=== PATIENT | male | born 1975 | race Caucasian/White ===

== ENCOUNTER 2016-06-17 11:54 | Inpatient (IN) | payer OTHER ==
--- NOTE | 2016-06-17 12:23 | ED ---
Psychiatric Complaint - HPI Summary HPI Summary: Patient presents with his father after his therapist recommended he come to the ED for evaluation due to increasing SI without a plan. The patient sees his counselor weekly and has been taking his daily medications. He goes to the methadone clinic daily in [place] and has not used heroin in four days. He feels agitated and worries he might start "acting up", of which he has a history in this facility. No physical complaints at this time. He mentions "a global conspiracy", but will not elaborate. 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 Denies: With A Plan - Allergies/Home Medications Allergies/Adverse Reactions: Allergies Allergy/AdvReac Type Severity Reaction Status Date / Time Penicillins Allergy Hives Verified 06/17/16 12:05 PMH/Surg Hx/FS Hx/Imm Hx Endocrine/Hematology History: Reports: Hx Thyroid Disease - hypo, Hx Anemia Denies: Hx Anticoagulant Therapy, Hx Diabetes Cardiovascular History: Reports: Hx Hypercholesterolemia, Hx Hypertension Denies: Hx Congestive Heart Failure, Hx Pacemaker/ICD Respiratory History: Reports: Hx Asthma, Hx Chronic Obstructive Pulmonary Disease (COPD), Hx Pneumonia History: Denies: Hx Renal Disease Musculoskeletal History: Reports: Hx Orthopedic Injury - Left Hand Fracture Sensory History: Reports: Hx Contacts or Glasses - reading Denies: Hx Hearing Aid Opthamlomology History: Reports: Hx Contacts or Glasses - reading Neurological History: Reports: Hx Migraine, Other Neuro Impairments/Disorders - Benign Tumor Removed Earlier this Year Psychiatric History: Reports: Hx Anxiety, Hx Attention Deficit Hyperactivity Disorder, Hx Depression, Hx Panic Disorder, Hx Post Traumatic Stress Disorder, Hx Inpatient Treatment, Hx Community Mental Health Tx, Hx Bipolar Disorder, Hx of Violent Episodes Against Others, Hx Substance Abuse, Other Psychiatric Issues /Disorders - BIPOLAR Denies: Hx Eating Disorder, Hx Suicide Attempt - Surgical History Surgery Procedure, Year, and Place: Pt states 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 Hx Anesthesia Reactions: Yes - age 8 ear tubes, surgery stopped for heart palpitation, unknown etiology, s Infectious Disease History: No Infectious Disease History: Reports: Hx of Known/Suspected MRSA Denies: Hx Clostridium Difficile, Hx Hepatitis, Hx Human Immunodeficiency Virus (HIV), Hx Shingles, Hx Tuberculosis, Hx Known/Suspected VRE, Hx Known/ Suspected VRSA, History Other Infectious Disease, Traveled Outside the [place] in Last 30 Days - Family History Known Family History: Positive: Unknown - Social History Occupation: Unemployed Lives: Alone Alcohol Use: None Hx Substance Use: Yes Substance Use Type: Reports: Heroin, Other Substance Use Comment - Amount & Last Used: admits to injecting meth hasnt slept for days Hx Tobacco Use: Yes Smoking Status (MU): Former Smoker Type: Cigarettes Amount Used/How Often: 1 ppd Length of Time of Smoking/Using Tobacco: 9 years Have You Smoked in the Last Year: No Review of Systems Positive: Depressed All Other Systems Reviewed And Are Negative: Yes Physical Exam Triage Information Reviewed: Yes Vital Signs On Initial Exam: Initial Vitals Temp Pulse Resp BP Pulse Ox 97.3 F 87 15 142/100 99 06/17/16 12:01 06/17/16 12:01 06/17/16 12:01 06/17/16 12:01 06/17/16 12:01 Vital Signs Reviewed: Yes Appearance: Positive: Well-Appearing, No Pain Distress, Obese Skin: Positive: Warm, Skin Color Reflects Adequate Perfusion, Dry, Soft Head/Face: Positive: Normal Head/Face Inspection Eyes: Positive: EOMI, ZABRINA, Conjunctiva Clear ENT: Positive: Hearing grossly normal Respiratory/Lung Sounds: Positive: Clear to Auscultation, Breath Sounds Present Cardiovascular: Positive: RRR Abdomen Description: Positive: Nontender, Soft Bowel Sounds: Positive: Present Musculoskeletal: Negative: Edema Left, Edema Right Neurological: Positive: Sensory/Motor Intact, Alert, Oriented to Person Place, Time - Patient is oriented but scratches his head and fidgets through exam, Normal Gait Psychiatric: Positive: Anxious, Depressed AVPU Assessment: Alert Diagnostics - Vital Signs Vital Signs Temp Pulse Resp BP Pulse Ox 06/17/16 12:01 97.3 F 87 15 142/100 99 - Laboratory Result Diagrams: 06/17/16 12:45 06/17/16 12:45 Lab Statement: Any lab studies that have been ordered have been reviewed, and results considered in the medical decision making process. Re-Evaluation - Re-Evaluation First Eval Re-Evaluation Time: 14:40 Change: Worse Comment: Mental health nurse requests medication for patient due to agitation. Course/Dx - Differential Dx/Clinical Impression Differential Diagnosis/HQI/PQRI: Positive: Acute Psychosis, Anxiety, Bipolar Disorder, Depression, Schizophrenia, Suicidal Ideation Provider Diagnosis: Persistent mood [affective] disorder, unspecified - Physician Notifications Patient Is Medically Stable For: Psych Evaluation Discharge - Discharge Plan Condition: Stable Disposition: ADMITTED TO [facility]
[2016-06-17 12:54] LABS: Hematocrit 45 % (42-52); Hemoglobin 14.7 g/dl (14.0-18.0); Mean Corpuscular HGB Conc 33 g/dl (31-36); Mean Corpuscular Hemoglobin 29 pg (27-31); Mean Corpuscular Volume 88 fL (80-94); Mean Platelet Volume 8 um3 (7.4-10.4); Red Blood Count 5.07 10^6/ul (4.0-5.4); Red Cell Distribution Width 14 % (10.5-15); White Blood Count 6.1 10^3/ul (3.5-10.8)
[2016-06-17 13:13] LABS: ALT 33 U/L (7-52); AST 23 U/L (13-39); Albumin 4.3 g/dL (3.2-5.2); Alkaline Phosphatase 87 U/L (34-104); Anion Gap 5 mmol/L (2-11); BUN/Creatinine Ratio 6.6 (8-20); Blood Urea Nitrogen 6 mg/dL (6-24); CO2 Carbon Dioxide 24 mmol/L (22-32); Calcium 9.2 mg/dL (8.6-10.3); Chloride 104 mmol/L (101-111); EGFR African American 119.9 (>60); EGFR Non-African American 93.2 (>60); Globulin 2.9 g/dL (2-4); Glucose 101 mg/dL (70-100); Potassium 4.1 mmol/L (3.5-5.0); Sodium 133 mmol/L (133-145); Total Protein 7.2 g/dL (6.4-8.9)
[2016-06-17 13:15] LABS: Urine Bacteria Absent (Absent); Urine Bilirubin Negative (Negative); Urine Glucose Negative (Negative); Urine Nitrite Negative (Negative); Urine Sperm Present (Absent)
[2016-06-17 13:27] LABS: Benzodiazepine Urine Screen None Detected (None Detect)
[2016-06-17 13:28] LABS: Acetaminophen < 15 mcg/mL; Alcohol < 10 mg/dL (<10); Salicylate < 2.50 mg/dL (<30)
[2016-06-17 13:38] LABS: TSH (Thyroid Stimulating Horm) 2.06 mcIU/mL (0.34-5.60)
[2016-06-17] MEDS ORDERED: Haloperidol TAB* 5 MG PO ONE (14:36)
[2016-06-17] MEDS ORDERED: diPHENhydraMINE PO* 25 MG PO ONE (14:36)
[2016-06-17] MEDS ORDERED: diPHENhydraMINE PO* 50 MG PO ONE (15:00)
[2016-06-17] MEDS ORDERED: Haloperidol TAB* 5 MG ONE (15:08)
[2016-06-17] MEDS ORDERED: diPHENhydraMINE PO* 50 MG ONE (15:08)
[2016-06-17] MEDS ORDERED: Mouth Piece, Nicotine* 1 EACH CARTRIDGE INH SCH (18:46)
[2016-06-17] MEDS ORDERED: Nicotine GUM* 2 MG PO PRN (18:46)
[2016-06-17] MEDS ORDERED: Acetaminophen TAB* 325 MG PO PRN (18:46)
[2016-06-17] MEDS ORDERED: Al Hydrox/Mg Hydrox/Simet LIQ* 30 ML UDC PO PRN (18:46)
[2016-06-18] MEDS: Amphetamine MIXED SALT TAB* 10 MG TAB PO SCH ×2 (09:33→13:35)
[2016-06-18] MEDS: Vitamin THERAPEUTIC TAB PO SCH (09:33)
[2016-06-18] MEDS: Nicotine PATCH 7 MG/24 HR* PATCH TRANSDERM SCH (09:33)
[2016-06-18] MEDS: Atorvastatin* 20 MG TAB PO SCH (09:33)
[2016-06-18] MEDS: Lisinopril TAB* 10 MG PO SCH (09:34)
[2016-06-18] MEDS: Venlafaxine EXT RELEASE CAP* 75 MG PO SCH (09:34)
--- NOTE | 2016-06-18 12:36 | HP ---
DATE OF ADMISSION: 06/17/2016. IDENTIFICATION: Mr. Woodson is a 40-year-old, single, white male who came in to the emergency department on the recommendation of his therapist Alexis at [facility], who has reported that the patient had stated that he wanted to "blow his brains out." The patient has been admitted to this unit four times previously; the last in July of last year. He is also in care with [facility]. He is unemployed and lives alone. HISTORY OF PRESENT ILLNESS: Information was obtained by interview of the patient and review of the electronic medical record. Eron reports that he is here because he is "just depressed." He states that the report of suicidality from his counselor at [facility] is an error. He reports continued use of heroin despite being on Methadone. His toxicology screen was also positive for amphetamine, cocaine and cannabinoids. He is prescribed Adderall by his primary care physician, Dr. Montano, per his report to me. He states that he does not know how cocaine could have gotten into his system. He does report that "I may have [smoked marijuana], I can't remember when." He is quite vague in his report and is, as he has been in the past, an unreliable historian. On review of mood symptoms, he states that his mood is "pretty bad." He does endorse anhedonia for the past few weeks. He reports that he is unsure if he is at this time feeling suicidal. He states that he has no plan to kill himself. He reports that his sleep has been interrupted for some time now, weeks or months, getting only about four hours per night and he is fatigued. He reports poor appetite and weight loss of unknown amount. He denies any feelings of guilt or worthlessness. He reports that his energy has been low and he has been having difficulties with concentration and decision making. On review of history of elton, he reports that "my elton is usually just getting back to normal." On specific review of manic symptoms, he does not endorse sufficient symptoms of elton for a history of manic episode. With regard to PTSD, the patient states that he did have the traumatic experience of a craniotomy, but denies any PTSD symptoms deriving from that. He does not report any other history of trauma. With regard to anxiety, he does report that he will have about monthly panic attacks, characterized by heart racing, sweating, feeling like he may have a heart attack or go crazy. He reports that currently he is feeling anxious and, in fact, tells me that "I feel under assault right now," making reference to my interview questions, which he says he finds intrusive. On review of history of psychotic symptoms, he reports having had recently auditory hallucinations, but with poor recall of when. He believes that last was several days ago. He denies any visual hallucinations. He denies any paranoid ideation, but does state that "people are out to get me." He does report a historical diagnosis of ADHD and says that this was diagnosed in childhood. PAST PSYCHIATRIC HISTORY: The patient has carried historical diagnoses of schizoaffective disorder, substance-induced mood disorder, and polysubstance use disorder. He denies any history of suicide attempts. He has had something on the order of six or eight psychiatric hospitalizations, including one in [place]. He has had four on this unit, this is his fifth. He has been on multiple medication trials, including Invega, Librium, Klonopin, Lamictal, Risperdal, Seroquel, Zyprexa, Zoloft, Depakote, [place] and Abilify. He did misuse Xanax when it was prescribed to him. PAST MEDICAL HISTORY: Had tumor with craniotomy in 2014, obesity, hypertension , hypothyroidism. No history of seizures. History of asthma. ALLERGIES: PENICILLIN. SUBSTANCE ABUSE HISTORY: The patient has an early and extensive history of abuse of substances. He reports that he started using marijuana at the age of 15, opiate pain pills at the age of 18 graduating to heroin with his last use IV this past . He reports first use of cocaine at 21. He denies use of methamphetamine at any point, although this is noted elsewhere in previous reports that he has abused methamphetamine. He reports that he used LSD dozens of times, starting at the age of 16 or 18 with no use since about ten years ago. He denies any changes in thought, feeling, or other mental phenomena since the use of the LSD. He has abused alcohol in the past as well. He reports that he quit smoking tobacco two months ago. He reports moderate use of caffeine, about a 40 ounce sugar free caffeinated soda daily. HISTORY OF VIOLENCE: The patient denies any history of violence or access to firearms. SOCIAL HISTORY: The patient was born in [place], he moved to [place] when he was [age]. He has an associates degree. 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 LEGAL HISTORY: Does report seven past DWI's/DUI's. Otherwise gives somewhat vague report of any other legal history. REVIEW OF SYSTEMS: Denies any chest pain, shortness of breath, nausea, vomiting , constipation, diarrhea, pain, rash, blurred vision, dizziness, ringing in the ears, sore throat. PHYSICAL EXAMINATION He declines a repeat physical examination. Physical examination performed in the emergency department was documented as within normal limits. Given negative ROS and all normal findings on recent exam, I will honor his reasonable request to not be reexamined. VITAL SIGNS: Recorded at 7:43 on 06/18/2016: Temperature 97.4, pulse 88, respiratory rate 16, saturating 95 percent on room air with a blood pressure of 141/77. LABORATORY VALUES: CBC with differential essentially within normal limits with low lymphocyte percentage to 18.8, a high monocyte percentage to 10.4. Comprehensive metabolic panel had a mildly elevated glucose to 101, a slight low BUN and creatinine ratio to 6.6 from BUN of 6 and creatinine of 0.91, both normal. Otherwise, CMP all within normal limits with a TSH of 2.06. Urinalysis had trace leukocyte esterase, trace whites, urine sperm present, and ascorbic acid high. Toxicology screen was positive for opiates, amphetamines, cocaine, and cannabinoids. Serum and urine drug screen otherwise negative. MENTAL STATUS EXAMINATION: Eron is an unreliable historian. He appears to be mildly confused and a bit put out at my questions. He makes fair eye contact. His speech has regular rate, rhythm, and volume, but he doesnt speak much. He has an impoverished or guarded thought process. His thoughts are generally linear and goal- directed nevertheless, with no notable tangentiality. He reports his mood as pretty bad. His affect is sullen and withdrawn. He denies AH/VH/PI/SI/HI currently, though he reports PI without insight, and says he had been having AH hours or days ago. He is alert and oriented to person, place, time, and situation. His insight and judgment appear to be poor. His impulse control is intact. ASSESSMENT AND PLAN: Eron returns to us with report from his counselor at [facility] in [place] of suicidal ideation to "blow his brains out." Eron denies any suicidal intent, but does present as confused or guarded. His clinical picture might be clarified by contacts with collateral, including Alexis at [facility]; his providers at [facility] , Fely Blair and Dr. Sanchez; and his father. Nursing staff are obtaining releases for making these collateral contacts. In the meantime, I have encouraged him to make use of the therapeutic milieu and groups. We will be continuing his outpatient medications. We will be checking in with outpatient providers about the Adderall. He is continuing for now his Venlafaxine. We will be considering whether an antipsychotic medication may be helpful as well. We will also be consulting with Dr. Sanchez about his recommendations for any medication changes given his current presentation. Aftercare will be return to care with [facility] and with the [facility] program. We are confirming, as I dictate this note, the enrollment in the Methadone Clinic and will resume him on Methadone replacement therapy once that is confirmed. One haider element of his treatment here will be to continue to gently press him on the issue of multiple substances in his toxicology screen that he cannot give account of and likely roll that these play in his current presentation with worsened depressive symptoms, particularly withdrawal from cocaine which is well-known to be a cause of worsening of depressive symptoms. DIAGNOSES: Schizoaffective disorder by history; rule out substance-induced mood and psychotic disorders; multiple substance abuse disorders, including opiate, cocaine, possibly amphetamine, and cannabinoids; rule out panic disorder. [id number]/[facility] #: [id number] KNICKERBOCKER HOSPITALSohail
[2016-06-18] MEDS: Nicotine Patch Removal NOTE PATCH OFF SCH (22:02)
[2016-06-19] MEDS: Venlafaxine EXT RELEASE CAP* 75 MG PO SCH (09:42)
[2016-06-19] MEDS: Amphetamine MIXED SALT TAB* 10 MG TAB PO SCH ×2 (09:42→13:14)
[2016-06-19] MEDS: Vitamin THERAPEUTIC TAB PO SCH (09:42)
[2016-06-19] MEDS: Lisinopril TAB* 10 MG PO SCH (09:42)
[2016-06-19] MEDS: Atorvastatin* 20 MG TAB PO SCH (09:42)
[2016-06-19] MEDS: Nicotine PATCH 7 MG/24 HR* PATCH TRANSDERM SCH (09:44)
[2016-06-19] MEDS: Methadone TAB* 10 MG PO SCH (11:09)
--- NOTE | 2016-06-19 16:01 | PN ---
Subjective - Subjective Service Type: 74475 Hosp care 15 min low complexity Subjective: Litzy was found again today laying in bed. He reports that this is in part because his scrub bottoms keep ripping out. He reports no psychotic symptoms. He asked about Effexor. He denies any dangerous intent or plan. Objective - Appearance Appearance: Obese Dysmorphic Features: No Hygiene: Normal Grooming: Disheveled - Behavior Psychomotor Activities: Abnormal-Decreased Exhibits Abnormal Movement: No - Attitude and Relatedness Attitude and Relatedness: Cooperative Eye Contact: Good - Speech Quality: Unpressured Latencies: Normal Quantity: Terse - Mood Patient's Decription of Mood: "Alright" - Affect Observed Affect: Fair Affect Consistent with: Euthymia - Thought Process Patient's Thought Process: Coherent, Goal Directed, Impoverished Thought Content: No Passive Wish, No Suicidal Planning, No Homicidal Ideation, No Paranoid Ideation - Sensorium Experiencing Hallucinations: No, Sensorium is Clear Type of Hallucinations: Visual: No, Auditory: No, Command: No - Level of Consciousness Level of Consciousness: Alert Orientation: Yes Intact, Yes Orientated to Time, Yes Orientated to Place, Yes Orientated to Person - Impulse Control Impulse Control: Intact - Insight and Judgement Insight and Judgement: Poor - Group Participation Particating in Group Activities: No - Medication Management Medication Management Adherence: Yes Assessment - Assessment Merits Inpatient Hospitalization: For Stabilization, To Initiate Treatment, For Discharge Planning, Pending Safe DC Plan Inpatient DSM-IV Dx: Schizoaffective disorder. Opiate, cocaine, cannabinoid use disorders, on methadone Clinical Impression: Litzy is a 40 y/o man admitted due to SI expressed to his counselor at [facility] methadone [facility]. He reports today remission of SI and other psychiatric symptoms, but has been continuing to isolate to his room. We were delayed in returning his methadone to him due to delay in getting confirmation of his dosage and continued treatment at [facility]. This may have contributed to his isolation and staying in bed. We will be looking for him to engage in groups as a sign of improved mental status in the next day or 2. Plan - Plan Treatment Plan: Name: LITZY JUSTICE Birthdate: 1975 [id number] On [place] Abilify. Continue Effexor, Methadone. Monitor MS and safety. Encourage groups and milieu. Aftercare at [facility] with [facility] and at [facility] for methadone. Continued Medication Management: Continue Outpt Medication Medications: Current Medications Acetaminophen (Tylenol Tab*) 650 mg PO Q4H PRN PRN Reason: PAIN or TEMP > 101 F Al Hydrox/Mg Hydrox/Simethicone (Maalox Plus*) 30 ml PO Q4H PRN PRN Reason: INDIGESTION Amphetamine/Dextroamphetamine (Adderall Tab*) 20 mg PO 0800,1300 [facility] Last Admin: 06/19/16 13:14 Dose: 20 mg Atorvastatin Calcium (Lipitor*) 20 mg PO DAILY [facility] Last Admin: 06/19/16 09:42 Dose: 20 mg Device (Nicotine Mouth Piece*) 1 each INH .CARTRIDGE [facility] Lisinopril (Prinivil Tab*) 20 mg PO DAILY [facility] Last Admin: 06/19/16 09:42 Dose: 20 mg Methadone HCl (Dolophine Tab*) 120 mg PO DAILY [facility] Last Admin: 06/19/16 11:09 Dose: 120 mg Multivitamins (Theragran Tab*) 1 tab PO DAILY [facility] Last Admin: 06/19/16 09:42 Dose: 1 tab Nicotine (Nicotine Inhaler*) 10 mg INH Q2H PRN PRN Reason: CRAVING Nicotine (Nicotine Patch 7 Mg/24 Hr*) 1 patch TRANSDERM DAILY@0800 [facility] Last Admin: 06/19/16 09:44 Dose: Not Given Nicotine Polacrilex (Nicotine Gum*) 2 mg PO Q2H PRN PRN Reason: CRAVING Pharmacy Profile Note (Nicotine Patch Removal Note*) 1 note PATCH OFF 2100 [facility] Last Admin: 06/18/16 22:02 Dose: Not Given Venlafaxine HCl (Effexor Xr Cap*) 300 mg PO DAILY [facility] Last Admin: 06/19/16 09:42 Dose: 300 mg - Discharge Plan Discharge Plan: [facility]
[2016-06-19] MEDS: Nicotine Patch Removal NOTE PATCH OFF SCH (20:03)
[2016-06-20] MEDS: Amphetamine MIXED SALT TAB* 10 MG TAB PO SCH ×2 (09:55→14:07)
[2016-06-20] MEDS: Venlafaxine EXT RELEASE CAP* 75 MG PO SCH (09:56)
[2016-06-20] MEDS: Atorvastatin* 20 MG TAB PO SCH (09:56)
[2016-06-20] MEDS: Vitamin THERAPEUTIC TAB PO SCH (09:56)
[2016-06-20] MEDS: Lisinopril TAB* 10 MG PO SCH (09:57)
[2016-06-20] MEDS: Methadone TAB* 10 MG PO SCH (09:58)
[2016-06-20] MEDS: Nicotine PATCH 7 MG/24 HR* PATCH TRANSDERM SCH (10:00)
--- NOTE | 2016-06-20 15:11 | PN ---
Subjective - Subjective Service Type: 41969 Hosp care 25 min moderate complexity Subjective: Litzy reports continued paranoia "about the government" and sometimes hearing voices as if they are right next to him. He reports also that he has been sleeping a lot. He did present later in the morning, after I had interviewed him, diaphoretic and feeling ill. EKG was WNL. Objective - Appearance Appearance: Obese Dysmorphic Features: No Hygiene: Normal Grooming: Disheveled - Behavior Psychomotor Activities: Abnormal-Decreased - in bed all day Exhibits Abnormal Movement: No - Attitude and Relatedness Attitude and Relatedness: Superficially Cooperative Eye Contact: Fair - Speech Quality: Unpressured Latencies: Normal Quantity: Appropriate - Mood Patient's Decription of Mood: "Okay" - Affect Observed Affect: Fair Affect Consistent with: Euthymia - Thought Process Patient's Thought Process: Coherent, Goal Directed, Impoverished Thought Content: Yes Paranoid Ideation, No Passive Wish, No Suicidal Planning, No Homicidal Ideation - Sensorium Experiencing Hallucinations: Yes Type of Hallucinations: Visual: No, Auditory: Yes, Command: No - Level of Consciousness Level of Consciousness: Alert Orientation: Yes Intact, Yes Orientated to Time, Yes Orientated to Place, Yes Orientated to Person - Impulse Control Impulse Control: Intact - Insight and Judgement Insight and Judgement: Poor - Group Participation Particating in Group Activities: No - Medication Management Medication Management Adherence: Yes Assessment - Assessment Merits Inpatient Hospitalization: For Immediate Safety, For Stabilization, For Discharge Planning Inpatient DSM-IV Dx: Schizoaffective disorder. Opiate, cocaine, cannabinoid use disorders, on methadone Clinical Impression: Litzy is a 40 y/o man admitted due to SI expressed to his counselor at [facility] methadone [facility]. He reports today remission of SI and other psychiatric symptoms, but has been continuing to isolate to his room. We were delayed in returning his methadone to him due to delay in getting confirmation of his dosage and continued treatment at [facility]. This may have contributed to his isolation and staying in bed. We will be looking for him to engage in groups as a sign of improved mental status in the next day or 2. 2.8.17 Litzy reports continued AH/PI, denies any dangerous intent/plan. Has not been attending groups, but agrees now to attend groups. Plan - Plan Treatment Plan: Name: LITZY JUSTICE Birthdate: 1975 [id number] Jaja Maintenna dose/timing confirmed with clinic today: last given May, next due Jun ([id number]), dose 400 mg. Continue Effexor, Methadone. Monitor MS and safety. Encourage groups and milieu. Aftercare at [facility] with [facility] and at [facility] for methadone. Medications: Current Medications Acetaminophen (Tylenol Tab*) 650 mg PO Q4H PRN PRN Reason: PAIN or TEMP > 101 F Al Hydrox/Mg Hydrox/Simethicone (Maalox Plus*) 30 ml PO Q4H PRN PRN Reason: INDIGESTION Amphetamine/Dextroamphetamine (Adderall Tab*) 20 mg PO 0800,1300 [facility] Last Admin: 06/20/16 14:07 Dose: 20 mg Aripiprazole (Abilify Maintena (Nf)) 0 mg IM .SEE COMMENTS [facility] Atorvastatin Calcium (Lipitor*) 20 mg PO DAILY [facility] Last Admin: 06/20/16 09:56 Dose: 20 mg Device (Nicotine Mouth Piece*) 1 each INH .CARTRIDGE [facility] Lisinopril (Prinivil Tab*) 20 mg PO DAILY [facility] Last Admin: 06/20/16 09:57 Dose: 20 mg Methadone HCl (Dolophine Tab*) 120 mg PO DAILY [facility] Last Admin: 06/20/16 09:58 Dose: 120 mg Multivitamins (Theragran Tab*) 1 tab PO DAILY [facility] Last Admin: 06/20/16 09:56 Dose: 1 tab Nicotine (Nicotine Inhaler*) 10 mg INH Q2H PRN PRN Reason: CRAVING Nicotine (Nicotine Patch 7 Mg/24 Hr*) 1 patch TRANSDERM DAILY@0800 [facility] Last Admin: 06/20/16 10:00 Dose: Not Given Nicotine Polacrilex (Nicotine Gum*) 2 mg PO Q2H PRN PRN Reason: CRAVING Pharmacy Profile Note (Nicotine Patch Removal Note*) 1 note PATCH OFF 2100 [facility] Last Admin: 06/19/16 20:03 Dose: Not Given Venlafaxine HCl (Effexor Xr Cap*) 300 mg PO DAILY [facility] Last Admin: 06/20/16 09:56 Dose: 300 mg - Discharge Plan Discharge Plan: Outpatient Follow Up Outpatient Program: [facility]
[2016-06-20] MEDS: Nicotine Patch Removal NOTE PATCH OFF SCH (20:15)
[2016-06-21] MEDS: Methadone TAB* 10 MG PO SCH (09:17)
[2016-06-21] MEDS: Nicotine PATCH 7 MG/24 HR* PATCH TRANSDERM SCH (09:19)
[2016-06-21] MEDS: Vitamin THERAPEUTIC TAB PO SCH (09:19)
[2016-06-21] MEDS: Lisinopril TAB* 10 MG PO SCH (09:19)
[2016-06-21] MEDS: Venlafaxine EXT RELEASE CAP* 75 MG PO SCH (09:19)
[2016-06-21] MEDS: Atorvastatin* 20 MG TAB PO SCH (09:19)
[2016-06-21] MEDS: Amphetamine MIXED SALT TAB* 10 MG TAB PO SCH (09:19)
--- NOTE | 2016-06-21 10:37 | PN ---
Subjective - Subjective Service Type: [id number] Hosp care 25 min moderate complexity Subjective: Litzy reports today that he continues to feel depressed. He remains in bed most of the day and is not attending to his hygiene. He tells me today that he last had AH 1 week ago. He reports that he is upset that I am wondering to what extent his abuse of substances has contributed to his depression and other signs of mental illness. He continues to maintain that he does not know the source of the cocaine detected in his blood on admission. I have explained that depressive symptoms are common in withdrawal from cocaine. He reports that he started feeling depressed when his budding romantic relationship with a woman was curtailed about 2 weeks ago. When I asked him if he was having any continued physical symptoms, as were seen yesterday with sweating and feeling unwell, he replied only that he continued to feel depressed. He agreed to go to groups and to shower. He agreed with checking with Dr Sanchez about the Adderall, and trying stopping it if Dr Mccoy does not have strong objection to that. Objective - Appearance Appearance: Obese Dysmorphic Features: No Hygiene: Mal-odorous Grooming: Disheveled - Behavior Psychomotor Activities: Abnormal-Decreased Exhibits Abnormal Movement: No - Attitude and Relatedness Attitude and Relatedness: Superficially Cooperative Eye Contact: Fair - Speech Quality: Unpressured Latencies: Normal Quantity: Appropriate - Mood Patient's Decription of Mood: "I'm feeling depressed" - Affect Observed Affect: Depressed Affect Consistent with: Dysphoria - Thought Process Patient's Thought Process: Impoverished Thought Content: No Passive Wish, No Suicidal Planning, No Homicidal Ideation, No Paranoid Ideation - Sensorium Experiencing Hallucinations: No, Sensorium is Clear Type of Hallucinations: Visual: No, Auditory: No, Command: No - Level of Consciousness Level of Consciousness: Lethargic Orientation: Yes Intact, Yes Orientated to Time, Yes Orientated to Place, Yes Orientated to Person - Impulse Control Impulse Control: Intact - Insight and Judgement Insight and Judgement: Poor - Group Participation Particating in Group Activities: No - Medication Management Medication Management Adherence: Yes Assessment - Assessment Merits Inpatient Hospitalization: For Stabilization, For Discharge Planning Inpatient DSM-IV Dx: Schizoaffective disorder. Opiate, cocaine, cannabinoid use disorders, on methadone Clinical Impression: Litzy is a 40 y/o man admitted due to SI expressed to his counselor at [facility]. He reports today remission of SI and other psychiatric symptoms, but has been continuing to isolate to his room. We were delayed in returning his methadone to him due to delay in getting confirmation of his dosage and continued treatment at [facility]. This may have contributed to his isolation and staying in bed. We will be looking for him to engage in groups as a sign of improved mental status in the next day or 2. 8. Litzy reports continued AH/PI, denies any dangerous intent/plan. Has not been attending groups, but agrees now to attend groups. 06.21.17 Litzy reports remission of all psychotic symptoms, but with current report contradicting yesterday's, indicating now that his last psychotic symptom was a week ago. He reports continued depression. He is upset to be confronted with the probable contribution of substance abuse to his current presentation. Awaiting return of call from Dr Sanchez to discuss Litzy's case. Plan - Plan Treatment Plan: Name: LITZY JUSTICE Birthdate: 1975 [id number] Abilify Maintenna dose/timing confirmed with clinic today: last given May, next due Jun ([id number]), dose 400 mg. Continue Effexor, Methadone. Reduce Adderall dose, awaiting word from Dr Sanchez about his knowledge ( prescribed by PCP Dusty) and recommendation about Adderall. Monitor MS and safety. Encourage groups and milieu. Aftercare at [facility] with [facility] and at [facility] for methadone. Continued Medication Management: Continue Outpt Medication Medications: Current Medications Acetaminophen (Tylenol Tab*) 650 mg PO Q4H PRN PRN Reason: PAIN or TEMP > 101 F Al Hydrox/Mg Hydrox/Simethicone (Maalox Plus*) 30 ml PO Q4H PRN PRN Reason: INDIGESTION Amphetamine/Dextroamphetamine (Adderall Tab*) 20 mg PO 0800,1300 [facility] Last Admin: 06/21/16 09:19 Dose: 20 mg Aripiprazole (Abilify Maintena (Nf)) 400 mg IM Q21D [facility] Atorvastatin Calcium (Lipitor*) 20 mg PO DAILY [facility] Last Admin: 06/21/16 09:19 Dose: 20 mg Device (Nicotine Mouth Piece*) 1 each INH .CARTRIDGE [facility] Lisinopril (Prinivil Tab*) 20 mg PO DAILY [facility] Last Admin: 06/21/16 09:19 Dose: 20 mg Methadone HCl (Dolophine Tab*) 120 mg PO DAILY [facility] Last Admin: 06/21/16 09:17 Dose: 120 mg Multivitamins (Theragran Tab*) 1 tab PO DAILY [facility] Last Admin: 06/21/16 09:19 Dose: 1 tab Nicotine (Nicotine Inhaler*) 10 mg INH Q2H PRN PRN Reason: CRAVING Nicotine (Nicotine Patch 7 Mg/24 Hr*) 1 patch TRANSDERM DAILY@0800 [facility] Last Admin: 06/21/16 09:19 Dose: Not Given Nicotine Polacrilex (Nicotine Gum*) 2 mg PO Q2H PRN PRN Reason: CRAVING Pharmacy Profile Note (Nicotine Patch Removal Note*) 1 note PATCH OFF 2100 [facility] Last Admin: 06/20/16 20:15 Dose: Not Given Venlafaxine HCl (Effexor Xr Cap*) 300 mg PO DAILY [facility] Last Admin: 06/21/16 09:19 Dose: 300 mg - Discharge Plan Discharge Plan: [facility]
[2016-06-21] MEDS ORDERED: Mouth Piece, Nicotine* 1 EACH CARTRIDGE ONE (10:52)
[2016-06-21] MEDS: Nicotine Inhaler* 10 MG AMP INH PRN (10:52)
[2016-06-21] MEDS ORDERED: Amphetamine MIXED SALT TAB* 10 MG TAB PO SCH (13:00)
[2016-06-21] MEDS: Nicotine Patch Removal NOTE PATCH OFF SCH (20:13)
[2016-06-22] MEDS: Methadone TAB* 10 MG PO SCH (08:30)
[2016-06-22] MEDS: Venlafaxine EXT RELEASE CAP* 75 MG PO SCH (08:31)
[2016-06-22] MEDS: Atorvastatin* 20 MG TAB PO SCH (08:31)
[2016-06-22] MEDS: Vitamin THERAPEUTIC TAB PO SCH (08:31)
[2016-06-22] MEDS: Lisinopril TAB* 10 MG PO SCH (08:31)
--- NOTE | 2016-06-22 08:57 | PN ---
Subjective - Subjective Service Type: 32157 Hosp care 15 min low complexity Subjective: Litzy remains malodorous. He reports having showered. I suggested he launder his clothes. May also be from bedding. He reports sustained remission of psychosis, yet continued paranoid delusion that experimental work at [facility] is jeopardizing stablility of the universe. Suggested reading layman's account of particle physics to displace these delusions. In middle of interview, got up and sat back down facing away from me in his room, looking out window. Reports doing ok without adderall. Denies cravings for substances. Objective - Appearance Appearance: Obese Dysmorphic Features: No Hygiene: Mal-odorous Grooming: Disheveled - Behavior Psychomotor Activities: Abnormal-Decreased Exhibits Abnormal Movement: No - Attitude and Relatedness Attitude and Relatedness: Minimally Cooperative Eye Contact: Poor - Speech Quality: Unpressured Latencies: Normal Quantity: Terse - Mood Patient's Decription of Mood: "Alright" - Affect Observed Affect: Depressed Affect Consistent with: Dysphoria - Thought Process Patient's Thought Process: Coherent, Goal Directed, Impoverished Thought Content: Yes Paranoid Ideation, No Passive Wish, No Suicidal Planning, No Homicidal Ideation - Sensorium Experiencing Hallucinations: No, Sensorium is Clear Type of Hallucinations: Visual: No, Auditory: No, Command: No - Level of Consciousness Level of Consciousness: Alert Orientation: Yes Intact, Yes Orientated to Time, Yes Orientated to Place, Yes Orientated to Person - Impulse Control Impulse Control: Intact - Insight and Judgement Insight and Judgement: Poor - Group Participation Particating in Group Activities: Yes Group Participation Comments: but only 1 group in past 24 hours - Medication Management Medication Management Adherence: Yes Assessment - Assessment Merits Inpatient Hospitalization: For Stabilization, Consolidate Improvements, For Discharge Planning Inpatient DSM-IV Dx: Schizoaffective disorder. Opiate, cocaine, cannabinoid use disorders, on methadone Clinical Impression: Litzy is a 40 y/o man admitted due to SI expressed to his counselor at [facility] methadone clinic [place]. He reports today remission of SI and other psychiatric symptoms, but has been continuing to isolate to his room. We were delayed in returning his methadone to him due to delay in getting confirmation of his dosage and continued treatment at [facility]. This may have contributed to his isolation and staying in bed. We will be looking for him to engage in groups as a sign of improved mental status in the next day or 2. 8 Litzy reports continued AH/PI, denies any dangerous intent/plan. Has not been attending groups, but agrees now to attend groups. 06.21.16 Litzy reports remission of all psychotic symptoms, but with current report contradicting yesterday's, indicating now that his last psychotic symptom was a week ago. He reports continued depression. He is upset to be confronted with the probable contribution of substance abuse to his current presentation. Awaiting return of call from Dr Sanchez to discuss Litzy's case. 217 Late yesterday, Litzy's father Avinash met with Litzy and me. He reported that his son's mental health has been deteriorating in recent months. He cited the failed romantic interest in a woman. He reports Litzy has been 'very foggy, feeling worthless, giving up.' Litzy reported concerns about entering the age of Shameka in 2011, with disaster looming from experimental activities at [facility]. Today Litzy remains in bed, looks down in mood, denies cravings or active psychosis. He reports tolerating well the discontinuation of Adderall. Plan - Plan Treatment Plan: Name: LITZY JUSTICE Birthdate: 1975 [id number] Abigeovannaaliza Louesmer last given May, next due Jun ([id number]), dose 400 mg. Continue Effexor, Methadone. Stopped Adderall. Monitor MS and safety. Encourage groups and milieu. Aftercare at [facility] with [facility] and at [facility] for methadone. Continued Medication Management: Continue Outpt Medication Medications: Current Medications Acetaminophen (Tylenol Tab*) 650 mg PO Q4H PRN PRN Reason: PAIN or TEMP > 101 F Al Hydrox/Mg Hydrox/Simethicone (Maalox Plus*) 30 ml PO Q4H PRN PRN Reason: INDIGESTION Aripiprazole (Abilify Maintena (Nf)) 400 mg IM Q21D [facility] Atorvastatin Calcium (Lipitor*) 20 mg PO DAILY [facility] Last Admin: 06/22/16 08:31 Dose: 20 mg Device (Nicotine Mouth Piece*) 1 each INH .CARTRIDGE [facility] Last Admin: 06/21/16 10:52 Dose: 1 each Lisinopril (Prinivil Tab*) 20 mg PO DAILY [facility] Last Admin: 06/22/16 08:31 Dose: 20 mg Methadone HCl (Dolophine Tab*) 120 mg PO DAILY [facility] Last Admin: 06/22/16 08:30 Dose: 120 mg Multivitamins (Theragran Tab*) 1 tab PO DAILY [facility] Last Admin: 06/22/16 08:31 Dose: 1 tab Nicotine (Nicotine Inhaler*) 10 mg INH Q2H PRN PRN Reason: CRAVING Last Admin: 06/21/16 10:52 Dose: 10 mg Nicotine (Nicotine Patch 7 Mg/24 Hr*) 1 patch TRANSDERM DAILY@0800 [facility] Last Admin: 06/21/16 09:19 Dose: Not Given Nicotine Polacrilex (Nicotine Gum*) 2 mg PO Q2H PRN PRN Reason: CRAVING Pharmacy Profile Note (Nicotine Patch Removal Note*) 1 note PATCH OFF 2100 [facility] Last Admin: 06/21/16 20:13 Dose: Not Given Venlafaxine HCl (Effexor Xr Cap*) 300 mg PO DAILY [facility] Last Admin: 06/22/16 08:31 Dose: 300 mg - Discharge Plan Discharge Plan: [facility]
[2016-06-22] MEDS: Nicotine PATCH 7 MG/24 HR* PATCH TRANSDERM SCH (09:46)
[2016-06-22] MEDS: Nicotine Patch Removal NOTE PATCH OFF SCH (19:40)
[2016-06-23] MEDS: Atorvastatin* 20 MG TAB PO SCH (09:34)
[2016-06-23] MEDS: Lisinopril TAB* 10 MG PO SCH (09:34)
[2016-06-23] MEDS: Nicotine PATCH 7 MG/24 HR* PATCH TRANSDERM SCH (09:34)
[2016-06-23] MEDS: Vitamin THERAPEUTIC TAB PO SCH (09:34)
[2016-06-23] MEDS: Methadone TAB* 10 MG PO SCH (09:35)
[2016-06-23] MEDS: Venlafaxine EXT RELEASE CAP* 75 MG PO SCH (09:35)
--- NOTE | 2016-06-23 11:59 | PN ---
Subjective - Subjective Service Type: 98695 Hosp care 15 min low complexity Subjective: ONce again, Litzy is found in bed, but right after our interview, he did get up and get out onto the milieu as I recommended. He has showered himself and laundered his clothes, and so in no longer malodorous. He reports continued depression. He agrees to additional antidepressant of bupropion against depressed mood. Objective - Appearance Appearance: Obese Dysmorphic Features: No Hygiene: Normal Grooming: Fairly Well Kept - Behavior Psychomotor Activities: Abnormal-Decreased Exhibits Abnormal Movement: No - Attitude and Relatedness Attitude and Relatedness: Cooperative Eye Contact: Fair - Speech Quality: Unpressured Latencies: Normal Quantity: Terse - Mood Patient's Decription of Mood: "Depressed" - Affect Observed Affect: Depressed Affect Consistent with: Dysphoria - Thought Process Patient's Thought Process: Coherent, Goal Directed Thought Content: No Passive Wish, No Suicidal Planning, No Homicidal Ideation, No Paranoid Ideation - Sensorium Experiencing Hallucinations: No, Sensorium is Clear Type of Hallucinations: Visual: No, Auditory: No, Command: No - Level of Consciousness Level of Consciousness: Alert Orientation: Yes Intact, Yes Orientated to Time, Yes Orientated to Place, Yes Orientated to Person - Impulse Control Impulse Control: Intact - Insight and Judgement Insight and Judgement: Poor - Group Participation Particating in Group Activities: No - Medication Management Medication Management Adherence: Yes Assessment - Assessment Merits Inpatient Hospitalization: For Stabilization, For Discharge Planning, Pending Safe DC Plan Inpatient DSM-IV Dx: Schizoaffective disorder. Opiate, cocaine, cannabinoid use disorders, on methadone Clinical Impression: Litzy is a 40 y/o man admitted due to SI expressed to his counselor at [facility] methadone [facility]. He reports today remission of SI and other psychiatric symptoms, but has been continuing to isolate to his room. We were delayed in returning his methadone to him due to delay in getting confirmation of his dosage and continued treatment at [facility]. This may have contributed to his isolation and staying in bed. We will be looking for him to engage in groups as a sign of improved mental status in the next day or 2. 06.20.16 Litzy reports continued AH/PI, denies any dangerous intent/plan. Has not been attending groups, but agrees now to attend groups. 17 Litzy reports remission of all psychotic symptoms, but with current report contradicting yesterday's, indicating now that his last psychotic symptom was a week ago. He reports continued depression. He is upset to be confronted with the probable contribution of substance abuse to his current presentation. Awaiting return of call from Dr Sanchez to discuss Litzy's case. 06.22.16 Late yesterday, Litzy's father Avinash met with Litzy and me. He reported that his son's mental health has been deteriorating in recent months. He cited the failed romantic interest in a woman. He reports Litzy has been 'very foggy, feeling worthless, giving up.' Litzy reported concerns about entering the age of Shameka in 2011, with disaster looming from experimental activities at [facility]. Today Litzy remains in bed, looks down in mood, denies cravings or active psychosis. He reports tolerating well the discontinuation of Adderall. 06.23.16 Litzy reports continued depression, no psychosis, no dangerous intent/ plan. He is no longer malodorous, and seems to be paying more attention to grooming and hygiene. HE agrees to addtional antidepressant medication against depressive symptoms. He has no physical complaints. Plan - Plan Treatment Plan: Name: LITZY JUSTICE Birthdate: 1975 [id number] Abilify Derricktenna last given May, next due Jun ([id number]), dose 400 mg. Continue Effexor, Methadone. Stopped Adderall. Add bupropion 75 mg daily to start. Monitor MS and safety. Encourage groups and milieu. Aftercare at [facility] with [facility] and at [facility] for methadone. Continued Medication Management: Different Medication Medications: Current Medications Acetaminophen (Tylenol Tab*) 650 mg PO Q4H PRN PRN Reason: PAIN or TEMP > 101 F Al Hydrox/Mg Hydrox/Simethicone (Maalox Plus*) 30 ml PO Q4H PRN PRN Reason: INDIGESTION Aripiprazole (Abilify Maintena (Nf)) 400 mg IM Q21D [facility] Atorvastatin Calcium (Lipitor*) 20 mg PO DAILY [facility] Last Admin: 06/23/16 09:34 Dose: 20 mg Device (Nicotine Mouth Piece*) 1 each INH .CARTRIDGE [facility] Last Admin: 06/21/16 10:52 Dose: 1 each Lisinopril (Prinivil Tab*) 20 mg PO DAILY [facility] Last Admin: 06/23/16 09:34 Dose: 20 mg Methadone HCl (Dolophine Tab*) 120 mg PO DAILY [facility] Last Admin: 06/23/16 09:35 Dose: 120 mg Multivitamins (Theragran Tab*) 1 tab PO DAILY [facility] Last Admin: 06/23/16 09:34 Dose: 1 tab Nicotine (Nicotine Inhaler*) 10 mg INH Q2H PRN PRN Reason: CRAVING Last Admin: 06/21/16 10:52 Dose: 10 mg Nicotine (Nicotine Patch 7 Mg/24 Hr*) 1 patch TRANSDERM DAILY@0800 [facility] Last Admin: 06/23/16 09:34 Dose: Not Given Nicotine Polacrilex (Nicotine Gum*) 2 mg PO Q2H PRN PRN Reason: CRAVING Pharmacy Profile Note (Nicotine Patch Removal Note*) 1 note PATCH OFF 2100 [facility] Last Admin: 06/22/16 19:40 Dose: Not Given Venlafaxine HCl (Effexor Xr Cap*) 300 mg PO DAILY [facility] Last Admin: 06/23/16 09:35 Dose: 300 mg - Discharge Plan Discharge Plan[facility]
[2016-06-23] MEDS: buPROPion TAB* 75 MG PO SCH (14:17)
[2016-06-23] MEDS: Nicotine Patch Removal NOTE PATCH OFF SCH (20:47)
[2016-06-24] MEDS: Vitamin THERAPEUTIC TAB PO SCH (09:18)
[2016-06-24] MEDS: Atorvastatin* 20 MG TAB PO SCH (09:18)
[2016-06-24] MEDS: Venlafaxine EXT RELEASE CAP* 75 MG PO SCH (09:19)
[2016-06-24] MEDS: buPROPion TAB* 75 MG PO SCH (09:21)
[2016-06-24] MEDS: Methadone TAB* 10 MG PO SCH (09:22)
[2016-06-24] MEDS: Lisinopril TAB* 10 MG PO SCH (09:27)
[2016-06-24] MEDS: Nicotine PATCH 7 MG/24 HR* PATCH TRANSDERM SCH (09:27)
[2016-06-24] MEDS ORDERED: Haloperidol TAB* 2 MG ONE (21:10)
[2016-06-24] MEDS: Nicotine Patch Removal NOTE PATCH OFF SCH (21:15)
[2016-06-25] MEDS: Atorvastatin* 20 MG TAB PO SCH (08:23)
[2016-06-25] MEDS: Vitamin THERAPEUTIC TAB PO SCH (08:23)
[2016-06-25] MEDS: Nicotine PATCH 7 MG/24 HR* PATCH TRANSDERM SCH (08:23)
[2016-06-25] MEDS: Venlafaxine EXT RELEASE CAP* 75 MG PO SCH (08:24)
[2016-06-25] MEDS: Lisinopril TAB* 10 MG PO SCH (08:24)
[2016-06-25] MEDS: buPROPion TAB* 75 MG PO SCH (08:25)
[2016-06-25] MEDS: Methadone TAB* 10 MG PO SCH (08:25)
--- NOTE | 2016-06-25 12:41 | PN ---
Subjective - Subjective Service Type: 85444 Hosp care 15 min low complexity Subjective: Litzy reports sustained remission of psychosis and dangerous intent/plan with improved mood. He agrees he may be ready for discharge after meeting with his father tomorrow. Objective - Appearance Appearance: Obese Dysmorphic Features: No Hygiene: Normal Grooming: Fairly Well Kept - Behavior Psychomotor Activities: Normal Exhibits Abnormal Movement: No - Attitude and Relatedness Attitude and Relatedness: Cooperative Eye Contact: Good - Speech Quality: Unpressured Latencies: Normal Quantity: Appropriate - Mood Patient's Decription of Mood: "Okay" - - "a little bit better" - Affect Observed Affect: Depressed Affect Consistent with: Dysphoria - but milder - Thought Process Patient's Thought Process: Coherent, Goal Directed Thought Content: No Passive Wish, No Suicidal Planning, No Homicidal Ideation, No Paranoid Ideation - Sensorium Experiencing Hallucinations: No, Sensorium is Clear Type of Hallucinations: Visual: No, Auditory: No, Command: No - Level of Consciousness Level of Consciousness: Alert Orientation: Yes Intact, Yes Orientated to Time, Yes Orientated to Place, Yes Orientated to Person - Impulse Control Impulse Control: Intact - Insight and Judgement Insight and Judgement: Poor - Group Participation Particating in Group Activities: Yes Group Participation Comments: but only AA in past 24 hours - Medication Management Medication Management Adherence: Yes Assessment - Assessment Merits Inpatient Hospitalization: For Stabilization, Consolidate Improvements, For Discharge Planning Inpatient DSM-IV Dx: Schizoaffective disorder. Opiate, cocaine, cannabinoid use disorders, on methadone Clinical Impression: Litzy is a 40 y/o man admitted due to SI expressed to his counselor at [facility] methadone [facility]. He reports today remission of SI and other psychiatric symptoms, but has been continuing to isolate to his room. We were delayed in returning his methadone to him due to delay in getting confirmation of his dosage and continued treatment at [facility]. This may have contributed to his isolation and staying in bed. We will be looking for him to engage in groups as a sign of improved mental status in the next day or 2. 06.20.16 Litzy reports continued AH/PI, denies any dangerous intent/plan. Has not been attending groups, but agrees now to attend groups. 06.21.16 Litzy reports remission of all psychotic symptoms, but with current report contradicting yesterday's, indicating now that his last psychotic symptom was a week ago. He reports continued depression. He is upset to be confronted with the probable contribution of substance abuse to his current presentation. Awaiting return of call from Dr Sanchez to discuss Litzy's case. 06.22.16 Late yesterday, Litzy's father Avinash met with Litzy and me. He reported that his son's mental health has been deteriorating in recent months. He cited the failed romantic interest in a woman. He reports Litzy has been 'very foggy, feeling worthless, giving up.' Litzy reported concerns about entering the age of Shameka in 2011, with disaster looming from experimental activities at [facility]. Today Litzy remains in bed, looks down in mood, denies cravings or active psychosis. He reports tolerating well the discontinuation of Adderall. 06.23.16 Litzy reports continued depression, no psychosis, no dangerous intent/ plan. He is no longer malodorous, and seems to be paying more attention to grooming and hygiene. HE agrees to addtional antidepressant medication against depressive symptoms. He has no physical complaints. 06.25.16 Litzy reports today sustained remission of psychotic symptoms and slight improvement of mood, with stronger indication of improvement in observed affect and activity. Likely ready for discharge after family meeting tomorrow. Plan - Plan Treatment Plan: Name: LITZY JUSTICE Birthdate: 1975 [id number] Add colace for c/o constipation. Abilify Maintenna last given May, next due Jun ([id number]), dose 400 mg. Continue Effexor, Methadone. Stopped Adderall. Add bupropion 75 mg daily to start. Monitor MS and safety. Encourage groups and milieu. Aftercare at [facility] with [facility] and at [facility] for methadone. Medications: Current Medications Acetaminophen (Tylenol Tab*) 650 mg PO Q4H PRN PRN Reason: PAIN or TEMP > 101 F Al Hydrox/Mg Hydrox/Simethicone (Maalox Plus*) 30 ml PO Q4H PRN PRN Reason: INDIGESTION Aripiprazole (Abilify Maintena (Nf)) 400 mg IM Q21D [facility] Atorvastatin Calcium (Lipitor*) 20 mg PO DAILY [facility] Last Admin: 06/25/16 08:23 Dose: 20 mg Bupropion HCl (Wellbutrin Tab*) 75 mg PO DAILY [facility] Last Admin: 06/25/16 08:25 Dose: 75 mg Device (Nicotine Mouth Piece*) 1 each INH .CARTRIDGE [facility] Last Admin: 06/21/16 10:52 Dose: 1 each Lisinopril (Prinivil Tab*) 20 mg PO DAILY [facility] Last Admin: 06/25/16 08:24 Dose: 20 mg Methadone HCl (Dolophine Tab*) 120 mg PO DAILY [facility] Last Admin: 06/25/16 08:25 Dose: 120 mg Multivitamins (Theragran Tab*) 1 tab PO DAILY [facility] Last Admin: 06/25/16 08:23 Dose: 1 tab Nicotine (Nicotine Inhaler*) 10 mg INH Q2H PRN PRN Reason: CRAVING Last Admin: 06/21/16 10:52 Dose: 10 mg Nicotine (Nicotine Patch 7 Mg/24 Hr*) 1 patch TRANSDERM DAILY@0800 [facility] Last Admin: 06/25/16 08:23 Dose: Not Given Nicotine Polacrilex (Nicotine Gum*) 2 mg PO Q2H PRN PRN Reason: CRAVING Pharmacy Profile Note (Nicotine Patch Removal Note*) 1 note PATCH OFF 2100 [facility] Last Admin: 06/24/16 21:15 Dose: Not Given Venlafaxine HCl (Effexor Xr Cap*) 300 mg PO DAILY [facility] Last Admin: 06/25/16 08:24 Dose: 300 mg - Discharge Plan Discharge Plan: Outpatient Follow Up Outpatient Program[facility]
[2016-06-25] MEDS ORDERED: Docusate CAP* 100 MG PO PRN (12:44)
[2016-06-25] MEDS: Nicotine Patch Removal NOTE PATCH OFF SCH (20:04)
[2016-06-26] MEDS: Nicotine PATCH 7 MG/24 HR* PATCH TRANSDERM SCH (07:40)
[2016-06-26] MEDS: Methadone TAB* 10 MG PO SCH (08:03)
[2016-06-26] MEDS: buPROPion TAB* 75 MG PO SCH (08:03)
[2016-06-26] MEDS: Vitamin THERAPEUTIC TAB PO SCH (08:03)
[2016-06-26] MEDS: Venlafaxine EXT RELEASE CAP* 75 MG PO SCH (08:04)
[2016-06-26] MEDS: Atorvastatin* 20 MG TAB PO SCH (08:04)
[2016-06-26] MEDS: Lisinopril TAB* 10 MG PO SCH (08:04)
[2016-06-26 08:58] VITALS: BP 118/75
[2016-06-26] MEDS ORDERED: Mouth Piece, Nicotine* 1 EACH CARTRIDGE ONE (09:21)
[2016-06-26] MEDS: Nicotine Inhaler* 10 MG AMP INH PRN (09:21)
--- NOTE | 2016-06-26 13:05 | DS ---
Subjective - Subjective Service Types: 72092 Hosp [place] Day Mgmt simple under 30 min Discharge Date: 06/26/16 Subjective: Eron reports sustained remission of SI and psychosis and improved mood. He reports feeling ready and eager for discharge. His father agrees with discharge today, reports he looks better and that he sees no concerning signs regarding Eron's safety. Objective - Appearance Appearance: Obese Dysmorphic Features: No Hygiene: Normal Grooming: Fairly Well Kept - Behavior Psychomotor Activities: Normal Exhibits Abnormal Movement: No - Attitude and Relatedness Attitude and Relatedness: Well Related Eye Contact: Good - Speech Quality: Unpressured Latencies: Normal Quantity: Appropriate - Mood Patient's Decription of Mood: "Okay" - Affect Observed Affect: Fair Affect Consistent with: Euthymia - Thought Process Patient's Thought Process: Coherent, Goal Directed Thought Content: No Passive Wish, No Suicidal Planning, No Homicidal Ideation, No Paranoid Ideation - Sensorium Experiencing Hallucinations: No, Sensorium is Clear Type of Hallucinations: Visual: No, Auditory: No, Command: No - Level of Consciousness Level of Consciousness: Alert Orientation: Yes Intact, Yes Orientated to Time, Yes Orientated to Place, Yes Orientated to Person - Insight and Judgement Insight and Judgement: Fair - Group Participation Particating in Group Activities: Yes Group Participation Comments: Only AA/NA in past 24 hours - Medication Management Medication Management Adherence: Yes Treatment Course & Assessment Clinical Course & Impression: Eron is a 40 y/o man admitted due to SI expressed to his counselor at [facility]. He reports today remission of SI and other psychiatric symptoms, but has been continuing to isolate to his room. We were delayed in returning his methadone to him due to delay in getting confirmation of his dosage and continued treatment at [facility]. This may have contributed to his isolation and staying in bed. We will be looking for him to engage in groups as a sign of improved mental status in the next day or 2. 06.20.16 Eron reports continued AH/PI, denies any dangerous intent/plan. Has not been attending groups, but agrees now to attend groups. 06.21.16 Eron reports remission of all psychotic symptoms, but with current report contradicting yesterday's, indicating now that his last psychotic symptom was a week ago. He reports continued depression. He is upset to be confronted with the probable contribution of substance abuse to his current presentation. Awaiting return of call from Dr Sanchez to discuss Eron's case. 06.22.16 Late yesterday, Eron's father Avinash met with Eron and me. He reported that his son's mental health has been deteriorating in recent months. He cited the failed romantic interest in a woman. He reports Eron has been 'very foggy, feeling worthless, giving up.' Eron reported concerns about entering the age of Shameka in 2011, with disaster looming from experimental activities at [facility]. Today Eron remains in bed, looks down in mood, denies cravings or active psychosis. He reports tolerating well the discontinuation of Adderall. 06.23.16 Eron reports continued depression, no psychosis, no dangerous intent/ plan. He is no longer malodorous, and seems to be paying more attention to grooming and hygiene. HE agrees to addtional antidepressant medication against depressive symptoms. He has no physical complaints. 06.25.16 Eron reports today sustained remission of psychotic symptoms and slight improvement of mood, with stronger indication of improvement in observed affect and activity. Likely ready for discharge after family meeting tomorrow. 06.26.16 For the past 4 days, Eron has been functioning better on the unit, showering, laundering, engaging more with staff. He is cleared for discharge. He is assessed as at no acutely increased risk of harm to self or others and capable of adequate self-care to avoid harm. His symptom burden has decreased and his functional level has increased. He voices commitment to aftercare at [facility] with transition to [facility]. He agrees as well to [facility] for nursing assessment and medication management, and is prepared for start of care on 06.28.16, which I agree with. It is hoped that enrollment in [facility] and [facility] will be 2 additional supports that will reduce the likelihood of exacerbation of his chronic mental illness resulting in rehospitalization. He remains at moderately elevated chronic risk of relapse both to increased psychiatric symptoms of depression and psychosis and to active substance abuse. He can reduce these risks by compliance with aftercare. He has a strong support in his father Avinash, reducing these risks. Merits Inpatient Hospitalization: No Clear for Discharge: Adequate Clinical Respons, Acceptable Safety Profile, Low Utility of Inpt Care Inpatient DSM-IV Dx: Schizoaffective disorder. Opiate, cocaine, cannabinoid use disorders, on methadone - [place] Medical Illness: craniotomy of benign tumor in 2014, obesity, hypertension, history of hypothyroidism, history of asthma - [place] IV Stressors: recent failed romantic interest Family: supportive father Primary Support Group: father - [place] V CVS-Bqiipi-Rlksb: 57 Estimate of Highest-Past Year: 62 Discharge Planning - Discharge Planning Discharge Plan: Outpatient Follow Up Outpatient Program: [facility] Recommendations for Continuing Care: Medication Management, Psychotherapy, Routine Metabolic Monitoring, Primary Care Followup - especially as regards history of hypothyroidism Medications: Aripiprazole (Abilify Maintena (Nf)) 400 mg IM Q21D [facility] next due 06.29.16 Atorvastatin Calcium (Lipitor*) 40 mg PO DAILY [facility] Last Admin: 06/26/16 08:04 Dose: 20 mg Bupropion HCl (Wellbutrin Tab*) 75 mg PO DAILY [facility] Last Admin: 06/26/16 08:03 Dose: 75 mg Lisinopril (Prinivil Tab*) 20 mg PO DAILY [facility] Last Admin: 06/26/16 08:04 Dose: 20 mg Methadone HCl (Dolophine Tab*) 120 mg PO DAILY [facility] Last Admin: 06/26/16 08:03 Dose: 120 mg Venlafaxine HCl (Effexor Xr Cap*) 300 mg PO DAILY [facility] Last Admin: 06/26/16 08:04 Dose: 300 mg I called [facility] on the day of discharge to clarify some ambiguities in the initial medication reconciliation. He had not filled any script for levothyroxine 75 mcg since October 2015, nor had he filled scripts for singulair or trazodone in the past 60+ days. Eron agrees to review SALV[facility]OR his current non-psychiatric medications with his PCP. Discharge Planning: Prescriptions provided for discharge [x] Yes [] No Follow up care details as per social work arrangements. Patient response to discharge plan: [x] eager for discharge [x] agreeable with discharge plan [] ambivalent about discharge [] disagrees with discharge today
== END 2016-06-26 14:00 | disposition home or self-care (01) | DRG 750 ==
LOC: ED 11:54 → BSU 16:30
PROVIDERS: ADMIT Psychiatry & Neurology Psychiatry; ATTEND Psychiatry & Neurology Psychiatry
DX: F25.9 Schizoaffective disorder, unspecified (principal); I10 Essential (primary) hypertension; F14.90 Cocaine use, unspecified, uncomplicated; F11.90 Opioid use, unspecified, uncomplicated; F12.90 Cannabis use, unspecified, uncomplicated; E66.9 Obesity, unspecified; E03.9 Hypothyroidism, unspecified; J45.909 Unspecified asthma, uncomplicated; Z68.34 Body mass index [BMI] 34.0-34.9, adult; Z87.891 Personal history of nicotine dependence; Z88.0 Allergy status to penicillin; E78.00 Pure hypercholesterolemia, unspecified; J44.9 Chronic obstructive pulmonary disease, unspecified; Z87.01 Personal history of pneumonia (recurrent); F90.9 Attention-deficit hyperactivity disorder, unspecified type; F32.9 Major depressive disorder, single episode, unspecified; F41.0 Panic disorder [episodic paroxysmal anxiety]; F43.10 Post-traumatic stress disorder, unspecified; Z56.0 Unemployment, unspecified
CPT/HCPCS: 36415; 80053; 80307; 80320; 80329; 81003; 81015; 84443; 85025; 87086; 93005; 99222; 99231; 99232; 99238; A9270-GY; G0480

== ENCOUNTER → 2016-09-13 13:31 | Emergency (ER) | payer OTHER ==
[2016-09-13 13:42] VITALS: BP 150/97
== END | disposition left against medical advice (07) ==
LOC: ED 13:31
DX: L02.413 Cutaneous abscess of right upper limb (principal); Z53.21 Procedure and treatment not carried out due to patient leaving prior to being seen by health care provider

== ENCOUNTER 2016-09-13 17:56 | Emergency (ER) | payer OTHER ==
[2016-09-13] MEDS ORDERED: Ketorolac INJ* 30 MG/ML 1 ML VIAL IV PUSH ONE (19:08)
--- NOTE | 2016-09-13 19:34 | ED ---
Skin Complaint - HPI Summary HPI Summary: 40M presents with abscess to right arm. The abscess has been there for 2 days. He states he does not feel well but does not know if it is from pain or feeling ill. He denies any fever. He states the streaking on his arm has gotten worst. He has history of IV drugs but denies using any. He has been hospitalized before for the abscess. He has history of MRSA. - History of Current Complaint Chief Complaint: EDRashSkinAbscess Time Seen by Provider: 09/13/16 19:06 Stated Complaint: RT ARM PAIN Pain Intensity: 8 - Additional Pertinent History Primary Care Physician: [id number] - Allergy/Home Medications Allergies/Adverse Reactions: Allergies Allergy/AdvReac Type Severity Reaction Status Date / Time Penicillins Allergy Hives Verified 09/13/16 19:26 PMH/Surg Hx/FS Hx/Imm Hx Endocrine/Hematology History: Reports: Hx Thyroid Disease - hypo, Hx Anemia Denies: Hx Anticoagulant Therapy, Hx Diabetes Cardiovascular History: Reports: Hx Hypercholesterolemia, Hx Hypertension Denies: Hx Congestive Heart Failure, Hx Pacemaker/ICD Respiratory History: Reports: Hx Asthma, Hx Chronic Obstructive Pulmonary Disease (COPD), Hx Pneumonia History: Denies: Hx Renal Disease Musculoskeletal History: Reports: Hx Orthopedic Injury - Left Hand Fracture Sensory History: Reports: Hx Contacts or Glasses - reading Denies: Hx Hearing Aid Opthamlomology History: Reports: Hx Contacts or Glasses - reading Neurological History: Reports: Hx Migraine, Other Neuro Impairments/Disorders - Benign Tumor Removed Earlier this Year Psychiatric History: Reports: Hx Anxiety, Hx Attention Deficit Hyperactivity Disorder, Hx Depression, Hx Panic Disorder, Hx Post Traumatic Stress Disorder, Hx Inpatient Treatment, Hx Community Mental Health Tx, Hx Bipolar Disorder, Hx of Violent Episodes Against Others, Hx Substance Abuse, Other Psychiatric Issues /Disorders - BIPOLAR Denies: Hx Eating Disorder, Hx Suicide Attempt - Surgical History Surgery Procedure, Year, and Place: Pt states 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 Hx Anesthesia Reactions: Yes - age 8 ear tubes, surgery stopped for heart palpitation, unknown etiology, s Infectious Disease History: Yes Infectious Disease History: Reports: Hx of Known/Suspected MRSA Denies: Hx Clostridium Difficile, Hx Hepatitis, Hx Human Immunodeficiency Virus (HIV), Hx Shingles, Hx Tuberculosis, Hx Known/Suspected VRE, Hx Known/ Suspected VRSA, History Other Infectious Disease, Traveled Outside the [place] in Last 30 Days - Family History Known Family History: Positive: Unknown - Social History Alcohol Use: None Hx Substance Use: Yes Substance Use Type: Reports: Heroin, Other Substance Use Comment - Amount & Last Used: admits to injecting meth hasnt slept for days Hx Tobacco Use: Yes Smoking Status (MU): Former Smoker Type: Cigarettes Amount Used/How Often: 1 ppd Length of Time of Smoking/Using Tobacco: 9 years Have You Smoked in the Last Year: No Review of Systems Negative: Fever Negative: Chest Pain Negative: Shortness Of Breath Positive: Other - right forearm abscess All Other Systems Reviewed And Are Negative: Yes Physical Exam Triage Information Reviewed: Yes Vital Signs On Initial Exam: Initial Vitals Temp Pulse Resp BP Pulse Ox 98.6 F 98 18 141/88 100 09/13/16 17:59 09/13/16 17:59 09/13/16 17:59 09/13/16 17:59 09/13/16 17:59 Vital Signs Reviewed: Yes Appearance: Positive: Well-Appearing Skin: Positive: Warm, Dry, Other - 5cm by 4cm abscess located on right forearm with surrounding streaking to area Head/Face: Positive: Normal Head/Face Inspection Eyes: Positive: Normal, Conjunctiva Clear Respiratory/Lung Sounds: Positive: Clear to Auscultation, Breath Sounds Present Cardiovascular: Positive: Normal, RRR Musculoskeletal: Positive: Strength/ROM Intact - of right elbow - [place] Coma Scale Coma Scale Total: 15 Procedures - Incision and Drainage Site: right forearm Anesthesia: Local Instrument(s): Scalpel Packing: Gauze Diagnostics - Vital Signs Vital Signs Temp Pulse Resp BP Pulse Ox 09/13/16 19:23 98.6 F 98 18 141/88 100 09/13/16 17:59 98.6 F 98 18 141/88 100 - Laboratory Result Diagrams: 09/13/16 23:30 09/13/16 21:00 Lab Statement: Any lab studies that have been ordered have been reviewed, and results considered in the medical decision making process. Course/Dx - Course Course Of Treatment: 40M presents with abscess to right forearm for 2 days. 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 states has been feeling sick but denies any fever. has spreading redness down forearm from abscess. gave dose of clindamycin IV and redness down arm decreased. labs normal wbc and lactic. successful I&D with 5ml of pus expressed and placed packing in area. will have continue with bactrim. told to follow up in 2 days to have packing removed and for wound check. patient understands and agrees with plan - Differential Diagnoses - Skin Complaint Differential Diagnoses: Abscess, Cellulitis, Systemic Illness - Diagnoses Provider Diagnoses: Abscess of right arm Discharge - Discharge Plan Condition: Good Disposition: HOME Prescriptions: Sulfamethox/Trimethoprim DS* [Bactrim DS 800/160 TAB*] 1 tab PO BID #20 tab Patient Education Materials: Abscess (ED) Referrals: Darin Montano MD [Primary Care Provider] - Additional Instructions: Take Bactrim twice a day for [address] warm compresses on area Follow up with ED, urgent care or primary to have packing removed in 2 days Return to ED if redness spreads or develop fever
[2016-09-13] MEDS ORDERED: Clindamycin 600 MG IVPREMIX(* 600 MG/50 ML SDV IV ONE (19:51)
[2016-09-13] MEDS ORDERED: oxyCODONE/Acetamin 5/325 MG* TAB PO ONE ×2 (21:03→21:04)
[2016-09-13 22:15] LABS: Albumin 3.8 g/dL (3.2-5.2); BUN/Creatinine Ratio 14.1 (8-20); Calcium 8.9 mg/dL (8.6-10.3); EGFR African American 108.8 (>60); EGFR Non-African American 84.6 (>60); Globulin 2.8 g/dL (2-4); Potassium 3.6 mmol/L (3.5-5.0); Total Bilirubin 0.4 mg/dL (0.2-1.0); Total Protein 6.6 g/dL (6.4-8.9)
[2016-09-13 23:58] LABS: Hematocrit 40 % (42-52); Hemoglobin 13.3 g/dl (14.0-18.0); Mean Corpuscular HGB Conc 33 g/dl (31-36); Mean Corpuscular Hemoglobin 29 pg (27-31); Mean Corpuscular Volume 87 fL (80-94); Mean Platelet Volume 9 um3 (7.4-10.4); Red Cell Distribution Width 14 % (10.5-15); White Blood Count 10.8 10^3/ul (3.5-10.8)
[2016-09-14 00:15] VITALS: BP 124/75
--- NOTE | 2016-09-15 16:49 | ED ---
Progress - Progress Note Progress Note: Pt's wound cx results from I&D reveal staph aureus and MRSA - pt was started in bactrim - f/u plan implemented. Bactrim covers these organisms. No change in medications at this time. Course/Dx - Course Course Of Treatment: 40M presents with abscess to right forearm for 2 days. 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 states has been feeling sick but denies any fever. has spreading redness down forearm from abscess. gave dose of clindamycin IV and redness down arm decreased. labs normal wbc and lactic. successful I&D with 5ml of pus expressed and placed packing in area. will have continue with bactrim. told to follow up in 2 days to have packing removed and for wound check. patient understands and agrees with plan - Diagnoses Provider Diagnoses: Abscess of right arm
== END 2016-09-14 00:13 | disposition home or self-care (01) ==
LOC: ED 17:56
DX: L02.413 Cutaneous abscess of right upper limb (principal)
CPT/HCPCS: 36415; 80053; 83605; 85025; 87070; 87077; 87186; 87205; 87640; 87641; 96374; 99282; A9270-GY; J1885

== ENCOUNTER 2016-09-15 10:24 | Emergency (ER) | payer OTHER ==
[2016-09-15] MEDS ORDERED: NS 0.9% 1000 ML* 2,000 ML IV ONE (11:37)
[2016-09-15] MEDS ORDERED: Clindamycin 600 MG IVPREMIX(* 600 MG/50 ML SDV IV ONE (11:38)
[2016-09-15] MEDS ORDERED: HYDROmorphone* 1 MG/ML 1 ML SYR IV SLOW PU ONE (11:39)
[2016-09-15 12:14] LABS: Hematocrit 42 % (42-52); Hemoglobin 13.7 g/dl (14.0-18.0); Mean Corpuscular HGB Conc 33 g/dl (31-36); Mean Corpuscular Hemoglobin 29 pg (27-31); Mean Corpuscular Volume 87 fL (80-94); Red Blood Count 4.79 10^6/ul (4.0-5.4); Red Cell Distribution Width 13 % (10.5-15)
[2016-09-15 12:16] LABS: Add Diff/Slide Review? Manual Diff Added; Comments Flag Yes
[2016-09-15 12:19] LABS: BUN/Creatinine Ratio 13.7 (8-20); C Reactive Protein 12.79 mg/L (< 5.00); EGFR African American 114.1 (>60); EGFR Non-African American 88.7 (>60); Total Bilirubin 0.3 mg/dL (0.2-1.0); Total Protein 7.2 g/dL (6.4-8.9)
[2016-09-15 12:21] LABS: Potassium 4.7 mmol/L (3.5-5.0)
[2016-09-15 12:38] LABS: White Blood Count 9.2 10^3/ul (3.5-10.8)
[2016-09-15 12:39] LABS: Neutrophil % 54 % (38-83)
[2016-09-15 12:40] LABS: RBC Morphology Normal (Normal)
[2016-09-15 12:49] LABS: Albumin 3.9 g/dL (3.2-5.2); Globulin 3.3 g/dL (2-4)
--- NOTE | 2016-09-15 13:05 | RAD ---
INDICATION: Right forearm pain and erythema COMPARISON: None TECHNIQUE: Real time ultrasound images of the right medial forearm at a site of I\\T\\D were acquired with reyes scale and Doppler color flow imaging. FINDINGS: There is subcutaneous edema surrounding a shadowing echogenic focus that is labeled as "packing". No drainable fluid collection is visualized. IMPRESSION: Sonographic images demonstrate subcutaneous edema and surgical packing without drainable fluid collection visualized.
[2016-09-15] MEDS ORDERED: Clindamycin CAP* 150 MG PO ONE (14:12)
[2016-09-15 14:30] VITALS: BP 139/69
--- NOTE | 2016-09-15 16:23 | ED ---
Niki Okeefe SooYoung, scribed for Dc Funk MD on 09/15/16 at 1119 . ED Suture/Wound Check - HPI Summary HPI Summary: A 40 y/o M presents to ED for a wound recheck on an I&D of an abscess on his R forearm. I&D was two days ago in ED. Associated sx: "flu-like". Denies fever, chills. He has not taken any ABX since he left ED. He believes the original abscess came from a bug bite or IV drugs, original onset of abscess 4 days ago. Pt is using Methodone, only occasionally uses IV drugs. Wound cultures show MRSA. Pt notes he has a PMHx of wounds being difficult to heal. - History Of Current Complaint Chief Complaint: EDLacSutureRecheck Stated Complaint: RE-CK ABSCESS/RT ARM Time Seen by Provider: 09/15/16 11:14 Hx Obtained From: Patient Onset/Duration: Lasting Days, Still Present Severity: Severe Pain Intensity: 8 Pain Scale Used: 0-10 Numeric - Allergies/Home Medications Allergies/Adverse Reactions: Allergies Allergy/AdvReac Type Severity Reaction Status Date / Time Penicillins Allergy Hives Verified 09/13/16 19:26 PMH/Surg Hx/FS Hx/Imm Hx Previously Healthy: No Endocrine/Hematology History: Reports: Hx Thyroid Disease - hypo, Hx Anemia Denies: Hx Anticoagulant Therapy, Hx Diabetes Cardiovascular History: Reports: Hx Hypercholesterolemia, Hx Hypertension Denies: Hx Congestive Heart Failure, Hx Pacemaker/ICD Respiratory History: Reports: Hx Asthma, Hx Chronic Obstructive Pulmonary Disease (COPD), Hx Pneumonia History: Denies: Hx Renal Disease Musculoskeletal History: Reports: Hx Orthopedic Injury - Left Hand Fracture Sensory History: Reports: Hx Contacts or Glasses - reading Denies: Hx Hearing Aid Opthamlomology History: Reports: Hx Contacts or Glasses - reading Neurological History: Reports: Hx Migraine, Other Neuro Impairments/Disorders - Benign Tumor Removed Earlier this Year Psychiatric History: Reports: Hx Anxiety, Hx Attention Deficit Hyperactivity Disorder, Hx Depression, Hx Panic Disorder, Hx Post Traumatic Stress Disorder, Hx Inpatient Treatment, Hx Community Mental Health Tx, Hx Bipolar Disorder, Hx of Violent Episodes Against Others, Hx Substance Abuse, Other Psychiatric Issues /Disorders - BIPOLAR Denies: Hx Eating Disorder, Hx Suicide Attempt - Surgical History Surgery Procedure, Year, and Place: Pt states 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 Hx Anesthesia Reactions: Yes - age 8 ear tubes, surgery stopped for heart palpitation, unknown etiology, s Infectious Disease History: Reports: Hx of Known/Suspected MRSA Denies: Hx Clostridium Difficile, Hx Hepatitis, Hx Human Immunodeficiency Virus (HIV), Hx Shingles, Hx Tuberculosis, Hx Known/Suspected VRE, Hx Known/ Suspected VRSA, History Other Infectious Disease, Traveled Outside the [place] in Last 30 Days - Family History Known Family History: Positive: Other - pos: Family EToH, psychotic disorders - Social History Occupation: Unemployed Lives: Alone Alcohol Use: None Hx Substance Use: Yes Substance Use Type: Reports: Heroin, Other Substance Use Comment - Amount & Last Used: admits to injecting meth hasnt slept for days Hx Tobacco Use: Yes Smoking Status (MU): Former Smoker Type: Cigarettes Amount Used/How Often: 1 ppd Length of Time of Smoking/Using Tobacco: 9 years Have You Smoked in the Last Year: No Review of Systems Negative: Fever, Chills Positive: Other - abscess on R forearm All Other Systems Reviewed And Are Negative: Yes Physical Exam - Summary Physical Exam Summary: The patient is well-nourished in no acute distress and in no acute pain. The skin is warm and dry and skin color reflects adequate perfusion. R FOREARM HAS 5 X 4 CM AREA OF ERYTHEMA. INCISION WAS MADE AND PACKING REMOVED, NUMBED WITH 4CCS 1% LIDO WITH EPI, BLUNT DISSECTION TO OPEN SEPTI AND LOCULATED AREA. NO DEBRIS. ONLY SANGUINEOUS DRAINAGE OF APPROX 30 CCS. NO LYMPHANGITIS. NO AXILLARY ADENOPATHY. HEENT: The head is normocephalic and atraumatic. The pupils are equal and reactive. The conjunctivae are clear and without drainage. Nares are patent and without drainage. Mouth reveals moist mucous membranes and the throat is without erythema and exudate. The external ears are intact. The ear canals are patent and without drainage. The tympanic membranes are intact. Neck is supple with full range of motion and non-tender. There are no carotid bruits. There is no neck vein distension. Respiratory: Chest is non-tender. Lungs are clear to auscultation and breath sounds are symmetrical and equal. Cardiovascular: Hear is regular rate and rhythm. There is no murmur or rub auscultated. There is no peripheral edema and pulses are symmetrical and equal. Abdomen: The abdomen is soft and non-tender. There are normal bowel sounds heard in all four quadrants and there is no organomegaly palpated. Musculoskeletal: There is no back pain noted. Extremities are non-tender with full range of motion. There is good capillary refill. There is no peripheral edema or calf tenderness elicited. Neurological: Patient is alert and oriented to person, place and time. The patient has symmetrical motor strength in all four extremities. Cranial nerves are grossly intact. Deep tendon reflexes are symmetrical and equal in all four extremities. Psychiatric: The patient has an appropriate affect and does not exhibit any anxiety or depression. Triage Information Reviewed: Yes Vital Signs On Initial Exam: Initial Vitals Temp Pulse Resp Pulse Ox 96.8 F 94 20 97 09/15/16 10:09/15/16 10:26 09/15/16 10:09/15/16 10:26 Vital Signs Reviewed: Yes Diagnostics - Vital Signs Vital Signs Temp Pulse Resp Pulse Ox 09/15/16 10: 96.8 F 94 20 97 - Laboratory Lab Results: Lab Results 09/15/16 09/15/16 09/15/16 Range/Units 11:55 11:55 11:55 WBC 9.2 (3.5-10.8) 10^3/ul RBC 4.79 (4.0-5.4) 10^6/ul Hgb 13.7 L (14.0-18.0) g/dl Hct 42 (42-52) % MCV 87 (80-94) fL MCH 29 (27-31) pg MCHC 33 (31-36) g/dl RDW 13 (10.5-15) % Plt Count 215 (150-450) 10^3/ul Absolute Neuts (auto) 4.9 (1.5-7.7) 10^3/ul Absolute Lymphs (auto) 3.6 (1.0-4.8) 10^3/ul Absolute Monos (auto) 0.6 (0-0.8) 10^3/ul Absolute Eos (auto) 0 (0-0.6) 10^3/ul Absolute Basos (auto) 0 (0-0.2) 10^3/ul Absolute Nucleated RBC Not Reportable Neutrophils % 54 (38-83) % Lymphocytes % 39 (25-47) % Monocytes % 7 (0-13) % Normal RBC Morphology Normal (Normal) INR (Anticoag Therapy) 0.85 L (0.89-1.11) Sodium 133 (133-145) mmol/L Potassium 4.7 (3.5-5.0) mmol/L Chloride 104 (101-111) mmol/L Carbon Dioxide 22 (22-32) mmol/L Anion Gap 7 (2-11) mmol/L BUN 13 (6-24) mg/dL Creatinine 0.95 (0.67-1.17) mg/dL Est GFR ( Amer) 114.1 (>60) Est GFR (Non-Af Amer) 88.7 (>60) BUN/Creatinine Ratio 13.7 (8-20) Glucose 90 (70-100) mg/dL Lactic Acid (0.5-2.0) mmol/L Calcium 9.0 (8.6-10.3) mg/dL Total Bilirubin 0.30 (0.2-1.0) mg/dL AST 26 (13-39) U/L ALT 26 (7-52) U/L Alkaline Phosphatase 73 (34-104) U/L C-Reactive Protein 12.79 H (< 5.00) mg/L Total Protein 7.2 (6.4-8.9) g/dL Albumin 3.9 (3.2-5.2) g/dL Globulin 3.3 (2-4) g/dL Albumin/Globulin Ratio 1.2 (1-3) HIV 1&2 Antibody (Nonreactive) 09/15/16 09/15/16 Range/Units 11:55 11:55 WBC (3.5-10.8) 10^3/ul RBC (4.0-5.4) 10^6/ul Hgb (14.0-18.0) g/dl Hct (42-52) % MCV (80-94) fL MCH (27-31) pg MCHC (31-36) g/dl RDW (10.5-15) % Plt Count (150-450) 10^3/ul Absolute Neuts (auto) (1.5-7.7) 10^3/ul Absolute Lymphs (auto) (1.0-4.8) 10^3/ul Absolute Monos (auto) (0-0.8) 10^3/ul Absolute Eos (auto) (0-0.6) 10^3/ul Absolute Basos (auto) (0-0.2) 10^3/ul Absolute Nucleated RBC Neutrophils % (38-83) % Lymphocytes % (25-47) % Monocytes % (0-13) % Normal RBC Morphology (Normal) INR (Anticoag Therapy) (0.89-1.11) Sodium (133-145) mmol/L Potassium (3.5-5.0) mmol/L Chloride (101-111) mmol/L Carbon Dioxide (22-32) mmol/L Anion Gap (2-11) mmol/L BUN (6-24) mg/dL Creatinine (0.67-1.17) mg/dL Est GFR ( Amer) (>60) Est GFR (Non-Af Amer) (>60) BUN/Creatinine Ratio (8-20) Glucose (70-100) mg/dL Lactic Acid 0.7 (0.5-2.0) mmol/L Calcium (8.6-10.3) mg/dL Total Bilirubin (0.2-1.0) mg/dL AST (13-39) U/L ALT (7-52) U/L Alkaline Phosphatase (34-104) U/L C-Reactive Protein (< 5.00) mg/L Total Protein (6.4-8.9) g/dL Albumin (3.2-5.2) g/dL Globulin (2-4) g/dL Albumin/Globulin Ratio (1-3) HIV 1&2 Antibody Nonreactive (Nonreactive) Result Diagrams: 09/15/16 11:55 09/15/16 11:55 Lab Statement: Any lab studies that have been ordered have been reviewed, and results considered in the medical decision making process. - Ultrasound No standard instances Ultrasound Interpretation: No Acute Changes - IMPRESSION: Sonographic images demonstrate subcutaneous edema and surgical packing without drainable fluid collection visualized. Ultrasound Interpretation Completed By: Radiologist Re-Evaluation - Re-Evaluation 1 Re-Evaluation Time: 14:02 Change: Unchanged Comment: Discussing results with pt. Will D/C wth ABX. Course/Dx - Course Course Of Treatment: Pt is a 40 y/o M presenting for a wound recheck of an abscess I&D on his R forearm. Onset of abscess was four days, I&D was performed two days ago in ED. Wound cultures show MRSA. Occassional IV drugs. CRP is elevated. Numbed with 4CCS 1% lidocaine with epinephrine. R forearm abscess was unpacked and repacked. Blunt dissection to open septi and loculated area. Sanguineous drainage of about 30ccs. no lymphangitis, no axillary adenopathy. Soft tissue US impression: Sonographic images demonstrate subcutaneous edema and surgical packing without drainable fluid collection visualized. Repacked abscess. Will D/C with ABX. - Differential Diagnoses Differential Diagnoses: Abscess, Cellulitis - Clinical Impression Provider Diagnoses: Abscess of right forearm, Cellulitis, MRSA (methicillin resistant staph aureus ) culture positive Discharge - Discharge Plan Condition: Stable Disposition: HOME Prescriptions: Clindamycin Cap(NF) [Cleocin 300 mg Cap(NF)] 300 mg PO Q6H #40 cap Hydrocodone-Acetaminophen [[place] 5-325 mg] 1 tab PO Q6HR PRN #20 tab MDD 4 PRN Reason: pain Patient Education Materials: Clindamycin (By mouth), Hydrocodone/Acetaminophen (By mouth), MRSA (Methicillin-Resistant Staphylococcus Aureus) (ED), Cellulitis (ED), Abscess (ED) Referrals: Darin Montano MD [Primary Care Provider] - Additional Instructions: RETURN TO ED, URGENT CARE OR SEE DR. MONTANO FOR WOUND CHECK / REPACKING OF YOUR ABSCESS IN TWO DAYS, ON Saturday09/17/2016. The documentation as recorded by the Niki gonzalez SooYoung accurately reflects the service I personally performed and the decisions made by , Dc Funk MD.
== END 2016-09-15 14:29 | disposition home or self-care (01) ==
LOC: ED 10:24
DX: B95.62 Methicillin resistant Staphylococcus aureus infection as the cause of diseases classified elsewhere (principal); L02.413 Cutaneous abscess of right upper limb; Z87.891 Personal history of nicotine dependence; L03.90 Cellulitis, unspecified
CPT/HCPCS: 36415; 80053; 83605; 85025; 85610; 86140; 86703; 96374; 99284; A9270-GY; J1170

== ENCOUNTER 2016-09-17 15:33 | Emergency (ER) | payer OTHER ==
[2016-09-17 15:40] VITALS: BP 153/99
[2016-09-17] MEDS ORDERED: oxyCODONE TAB* 5 MG TAB PO ONE (17:48)
--- NOTE | 2016-09-17 20:24 | ED ---
Skin Complaint - HPI Summary HPI Summary: Patient presents to ED for a follow up with I and D with packing on his right forearm from either bug bite or IV drug infection. He was seen in ED 4 days ago with the abscess I and D with packing. He followed up in 2 days for re- packing and wound check and the wound was found to have a loculation traveling proximally towards the elbow. Today, he arrives for re-packing and wound check and is requesting more pain medications. Patient is currently on Methadone and is an IV drug user. Pain medication needs to be regulated d/t diagnoses. Wound was visualized by Dr Funk who packed the wound [address] Funk states the wound looks to be improved with less erythema around the wound. Patient did not fill his antibiotic Bactrim on the first I and D but states he filled the medication Clindamycin the second time he was seen. - History of Current Complaint Chief Complaint: EDRashSkinAbscess Time Seen by Provider: 09/17/16 17:31 Stated Complaint: RECHECK/REPACK ABSCESS Hx Obtained From: Patient Onset/Duration: Started Days Ago Skin Exposure Onset/Duration: Weeks Ago Timing: Constant Onset Severity: Moderate Current Severity: Moderate Pain Intensity: 4 Pain Scale Used: 0-10 Numeric Skin Location: Arm Character: Swelling, Pain, Raised, Painful Aggravating Symptom(s): Touch Alleviating Symptom(s): Nothing Associated Signs & Symptoms: Negative - Additional Pertinent History Primary Care Physician: [id number] - Allergy/Home Medications Allergies/Adverse Reactions: Allergies Allergy/AdvReac Type Severity Reaction Status Date / Time Penicillins Allergy Hives Verified 09/13/16 19:26 PMH/Surg Hx/FS Hx/Imm Hx Previously Healthy: Yes Endocrine/Hematology History: Reports: Hx Thyroid Disease - hypo, Hx Anemia Denies: Hx Anticoagulant Therapy, Hx Diabetes Cardiovascular History: Reports: Hx Hypercholesterolemia, Hx Hypertension Denies: Hx Congestive Heart Failure, Hx Pacemaker/ICD Respiratory History: Reports: Hx Asthma, Hx Chronic Obstructive Pulmonary Disease (COPD), Hx Pneumonia History: Denies: Hx Renal Disease Musculoskeletal History: Reports: Hx Orthopedic Injury - Left Hand Fracture Sensory History: Reports: Hx Contacts or Glasses - reading Denies: Hx Hearing Aid Opthamlomology History: Reports: Hx Contacts or Glasses - reading Neurological History: Reports: Hx Migraine, Other Neuro Impairments/Disorders - Benign Tumor Removed Earlier this Year Psychiatric History: Reports: Hx Anxiety, Hx Attention Deficit Hyperactivity Disorder, Hx Depression, Hx Panic Disorder, Hx Post Traumatic Stress Disorder, Hx Inpatient Treatment, Hx Community Mental Health Tx, Hx Bipolar Disorder, Hx of Violent Episodes Against Others, Hx Substance Abuse, Other Psychiatric Issues /Disorders - BIPOLAR Denies: Hx Eating Disorder, Hx Suicide Attempt - Surgical History Surgery Procedure, Year, and Place: Pt states 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 Hx Anesthesia Reactions: Yes - age 8 ear tubes, surgery stopped for heart palpitation, unknown etiology, s Infectious Disease History: No Infectious Disease History: Reports: Hx of Known/Suspected MRSA Denies: Hx Clostridium Difficile, Hx Hepatitis, Hx Human Immunodeficiency Virus (HIV), Hx Shingles, Hx Tuberculosis, Hx Known/Suspected VRE, Hx Known/ Suspected VRSA, History Other Infectious Disease, Traveled Outside the [place] in Last 30 Days - Family History Known Family History: Positive: Unknown, Other - pos: Family EToH, psychotic disorders - Social History Occupation: Unemployed Lives: With Family Alcohol Use: None Hx Substance Use: Yes Substance Use Type: Reports: Heroin, Other Substance Use Comment - Amount & Last Used: admits to injecting meth hasnt slept for days Hx Tobacco Use: Yes Smoking Status (MU): Former Smoker Type: Cigarettes Amount Used/How Often: 1 ppd Length of Time of Smoking/Using Tobacco: 9 years Have You Smoked in the Last Year: No Review of Systems Constitutional: Negative Eyes: Negative Positive: no symptoms reported, see HPI Musculoskeletal: Negative Positive: Other - 2 X 2 loculated wound over right forearm Neurological: Negative Psychological: Normal All Other Systems Reviewed And Are Negative: Yes Physical Exam Triage Information Reviewed: Yes Vital Signs On Initial Exam: Initial Vitals Temp Pulse Resp BP Pulse Ox 97.2 F 105 20 153/99 98 09/17/16 15:38 09/17/16 15:38 09/17/16 15:38 09/17/16 15:38 09/17/16 15:38 Appearance: Positive: Well-Nourished, Pain Distress, Cachectic Skin: Positive: Skin Color Reflects Adequate Perfusion Head/Face: Positive: Normal Head/Face Inspection Eyes: Positive: ZABRINA, Conjunctiva Clear Neck: Positive: Supple, Nontender Respiratory/Lung Sounds: Positive: Clear to Auscultation, Breath Sounds Present Cardiovascular: Positive: Normal Musculoskeletal: Positive: Strength/ROM Intact Neurological: Positive: Reflexes Intact, Speech Normal Psychiatric: Positive: Normal AVPU Assessment: Alert Procedures - Incision and Drainage Anesthesia: Topical, Lidocaine Instrument(s): Other - irrigated wound well with tubing Packing: Gauze Diagnostics - Vital Signs Vital Signs Temp Pulse Resp BP Pulse Ox 09/17/16 15:40 97.2 F 102 20 153/99 100 09/17/16 15:38 97.2 F 105 20 153/99 98 - Laboratory Lab Statement: Any lab studies that have been ordered have been reviewed, and results considered in the medical decision making process. Course/Dx - Course Course Of Treatment: Pain medication needs to be regulated d/t diagnoses. Wound was visualized by Dr Funk who packed the wound [address] Funk states the wound looks to be improved with less erythema around the wound. Patient did not fill his antibiotic Bactrim on the first I and D but states he filled the medication Clindamycin the second time he was seen. 2 days of Oxycodone given to patient, but patient must return hydrocodone to pharmacy. He agrees. Pharmacy was called and informed of results. Provider explained he would not need more pain medications d/t heaing wound. Encouraged continuation of ibuprofen. - Differential Diagnoses - Skin Complaint Differential Diagnoses: Abscess, Cellulitis, Impetigo - Diagnoses Provider Diagnoses: Encounter for wound re-check Discharge - Discharge Plan Condition: Stable Disposition: HOME Prescriptions: oxyCODONE/Acetamin 5/325 MG* [Percocet 5/325 TAB*] 1 tab PO Q6H PRN #8 tab MDD 4 PRN Reason: Pain oxyCODONE/Acetamin 5/325 MG* [Percocet 5/325 TAB*] 1 tab PO Q6H PRN #8 tab MDD 4 PRN Reason: Pain Patient Education Materials: Abscess (ED) Referrals: Darin Montano MD [Primary Care Provider] - Additional Instructions: Follow up in 2-3 days. Return 8 of the [place] to [facility] You may picket [employer] 8 of the Oxycodone at the pharmacy. Images - Images Full Body (No Head): 1 - abscess
== END 2016-09-17 18:41 | disposition home or self-care (01) ==
LOC: ED 15:33
DX: L02.413 Cutaneous abscess of right upper limb (principal)
CPT/HCPCS: 99282; A9270-GY

== ENCOUNTER 2017-01-01 19:40 | Emergency (ER) | payer OTHER ==
[2017-01-01 20:09] VITALS: BP 130/87
== END 2017-01-01 20:59 | disposition left against medical advice (07) ==
LOC: ED 19:40
DX: M54.2 Cervicalgia (principal); Z53.21 Procedure and treatment not carried out due to patient leaving prior to being seen by health care provider

== ENCOUNTER 2017-01-05 14:52 | Inpatient (IN) | payer OTHER ==
--- NOTE | 2017-01-05 16:30 | RAD ---
HISTORY: Right shoulder pain COMPARISONS: None VIEWS: 4, Frontal internal rotation, external rotation, outlet, and axillary views of the right shoulder FINDINGS: BONE DENSITY: Normal. BONES: There is a minimally displaced fracture of the lateral aspect of the right clavicle JOINTS: There is no arthropathy. ALIGNMENT: There is no dislocation. SOFT TISSUES: Unremarkable. OTHER FINDINGS: None. IMPRESSION: MINIMALLY DISPLACED CLAVICLE FRACTURE.
[2017-01-05 17:29] LABS: Hematocrit 43 % (42-52); Hemoglobin 14.4 g/dl (14.0-18.0); Mean Corpuscular HGB Conc 34 g/dl (31-36); Mean Corpuscular Hemoglobin 29 pg (27-31); Mean Corpuscular Volume 86 fL (80-94); Mean Platelet Volume 9 um3 (7.4-10.4); Red Blood Count 4.99 10^6/ul (4.0-5.4); Red Cell Distribution Width 14 % (10.5-15); White Blood Count 8.6 10^3/ul (3.5-10.8)
[2017-01-05 17:36] LABS: Urine Bacteria Absent (Absent); Urine Bilirubin Negative (Negative); Urine Glucose Negative (Negative); Urine Nitrite Negative (Negative)
[2017-01-05 17:42] LABS: ALT 39 U/L (7-52); AST 32 U/L (13-39); Albumin 4.2 g/dL (3.2-5.2); Alkaline Phosphatase 77 U/L (34-104); Anion Gap 4 mmol/L (2-11); BUN/Creatinine Ratio 17.9 (8-20); Blood Urea Nitrogen 19 mg/dL (6-24); CO2 Carbon Dioxide 23 mmol/L (22-32); Calcium 9.6 mg/dL (8.6-10.3); Chloride 105 mmol/L (101-111); EGFR Non-African American 77.8 (>60); Globulin 3.1 g/dL (2-4); Glucose 109 mg/dL (70-100); Potassium 3.3 mmol/L (3.5-5.0); Sodium 132 mmol/L (133-145); Total Protein 7.3 g/dL (6.4-8.9)
[2017-01-05 17:47] LABS: Benzodiazepine Urine Screen None Detected (None Detect)
[2017-01-05] MEDS ORDERED: Potassium Chlor TAB* 20 MEQ TAB.ER PO ONE (17:53)
[2017-01-05 17:58] LABS: Acetaminophen < 15 mcg/mL; Alcohol < 10 mg/dL (<10); Salicylate < 2.50 mg/dL (<30)
[2017-01-05 18:09] LABS: TSH (Thyroid Stimulating Horm) 1.33 mcIU/mL (0.34-5.60)
[2017-01-05] MEDS ORDERED: Ibuprofen TAB* 800 MG PO ONE (18:51)
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
[2017-01-06] MEDS ORDERED: Al Hydrox/Mg Hydrox/Simet LIQ* 30 ML UDC PO PRN (00:01)
[2017-01-06] MEDS: Acetaminophen TAB* 325 MG PO PRN (10:06)
[2017-01-06] MEDS: buPROPion TAB* 75 MG PO SCH (10:07)
[2017-01-06] MEDS: Vitamin THERAPEUTIC TAB PO SCH (10:07)
[2017-01-06] MEDS: Venlafaxine EXT RELEASE CAP* 75 MG PO SCH (10:07)
[2017-01-06] MEDS: Lisinopril TAB* 10 MG PO SCH (10:07)
[2017-01-06] MEDS: Methadone TAB* 10 MG PO SCH (14:17)
[2017-01-06] MEDS: Cetirizine* 10 MG TAB PO SCH (17:34)
[2017-01-06] MEDS: Atorvastatin* 40 MG TAB PO SCH (17:34)
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
[2017-01-07] MEDS: Methadone TAB* 10 MG PO SCH (08:18)
[2017-01-07] MEDS: Lisinopril TAB* 10 MG PO SCH (08:19)
[2017-01-07] MEDS: Vitamin THERAPEUTIC TAB PO SCH (08:19)
[2017-01-07] MEDS: Venlafaxine EXT RELEASE CAP* 75 MG PO SCH (08:19)
[2017-01-07] MEDS: buPROPion TAB* 75 MG PO SCH (08:19)
--- NOTE | 2017-01-07 11:55 | PN ---
[facility]HU: Group Therapy Note - Service Type Service Type: [id number] Group Psychotherapy - Cognitive Behavioral Group Therapy ( CBT):Patient was attentive and participatory in CBT programming this morning, and remained in good behavioral control. Patient expressed positive insights regarding relevant treatment interventions and goals.
--- NOTE | 2017-01-07 15:10 | PN ---
Subjective - Subjective Service Type: 07489 Hosp care 15 min low complexity Subjective: The patient has gone to a couple of groups. He denies SI today but is afraid of heroin relapse if discharged. He is not interested in inpatient rehab. I spoke with Dr. Baker, the orthopedist second class welder, and was advised to get an Xray of the patient's right clavicle. Treatment for a non-displaced clavicular fracture tends to be routine outpatient follow up. The patient is tolerating meds well, complains of right shoulder pain. Objective - Appearance Appearance: Obese Dysmorphic Features: No Hygiene: Normal Grooming: Fairly Well Kept - Behavior Psychomotor Activities: Normal Exhibits Abnormal Movement: No - Attitude and Relatedness Attitude and Relatedness: Cooperative Eye Contact: Fair - Speech Quality: Unpressured Latencies: Normal Quantity: Terse - Mood Patient's Decription of Mood: "Sad" - Affect Observed Affect: Depressed Affect Consistent with: Dysphoria - Thought Process Patient's Thought Process: Coherent Thought Content: No Passive Wish, No Suicidal Planning, No Homicidal Ideation, No Paranoid Ideation - Sensorium Experiencing Hallucinations: No, Sensorium is Clear Type of Hallucinations: Visual: No, Auditory: No, Command: No - Level of Consciousness Level of Consciousness: Alert Orientation: Yes Intact, Yes Orientated to Time, Yes Orientated to Place, Yes Orientated to Person - Impulse Control Impulse Control: Tenuous - Insight and Judgement Insight and Judgement: Fair - Group Participation Particating in Group Activities: Yes - Medication Management Medication Management Adherence: Yes Assessment - Assessment Merits Inpatient Hospitalization: For Immediate Safety, For Stabilization 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 single, white male with a history of polysubstance abuse of cocaine, cannabis and opioids who is on methadone maintenance therapy, who self-referred to the hospital seeking voluntary admission for vague SI. Plan - Plan Treatment Plan: Name: LITZY JUSTICE Birthdate: 1975 [id number] Patient's venlafaxine, bupropion, methadone and aripiprazole Maintaina have been resumed. As per Ortho recommendations, will order 2 view Xray of right clavicle. Will contact [facility] in [place], [place] for further collateral. Continued Medication Management: Continue Outpt Medication Medications: Current Medications Acetaminophen (Tylenol Tab*) 650 mg PO Q4H PRN PRN Reason: PAIN or TEMP > 101 F Last Admin: 01/06/17 10:06 Dose: 650 mg Al Hydrox/Mg Hydrox/Simethicone (Maalox Plus*) 30 ml PO Q4H PRN PRN Reason: INDIGESTION Aripiprazole (Abilifbob Maintena (Nf)) 300 mg IM Q28D [facility] Last Admin: 01/06/17 16:19 Dose: 300 mg Atorvastatin Calcium (Lipitor*) 40 mg PO 1700 [facility] Last Admin: 01/06/17 17:34 Dose: 40 mg Bupropion HCl (Wellbutrin Tab*) 75 mg PO QAM [facility] Last Admin: 01/07/17 08:19 Dose: 75 mg Cetirizine HCl (Zyrtec*) 10 mg PO QPM [facility] Last Admin: 01/06/17 17:34 Dose: 10 mg Lisinopril (Prinivil Tab*) 20 mg PO QAM [facility] Last Admin: 01/07/17 08:19 Dose: 20 mg Methadone HCl (Dolophine Tab*) 120 mg PO DAILY [facility] Last Admin: 01/07/17 08:18 Dose: 120 mg Multivitamins (Theragran Tab*) 1 tab PO DAILY [facility] Last Admin: 01/07/17 08:19 Dose: 1 tab Venlafaxine HCl (Effexor Xr Cap*) 300 mg PO QAM [facility] Last Admin: 01/07/17 08:19 Dose: 300 mg - Discharge Plan Discharge Plan: Inpatient Hospitalization
[2017-01-07] MEDS: Cetirizine* 10 MG TAB PO SCH (19:01)
[2017-01-07] MEDS: Atorvastatin* 40 MG TAB PO SCH (19:01)
[2017-01-07] MEDS: Acetaminophen TAB* 325 MG PO PRN (23:09)
[2017-01-08] MEDS ORDERED: oxyCODONE/Acetamin 5/325 MG* TAB PO ONE (01:17)
[2017-01-08] MEDS ORDERED: oxyCODONE/Acetamin 5/325 MG* TAB ONE (01:21)
[2017-01-08] MEDS: Acetaminophen TAB* 325 MG PO PRN (06:15)
[2017-01-08] MEDS: Methadone TAB* 10 MG PO SCH (07:15)
[2017-01-08 08:20] LABS: HDL Cholesterol 40.4 mg/dL
--- NOTE | 2017-01-08 08:54 | RAD ---
Indication: Right clavicle fracture Comparison: Shoulder radiograph dated January 05, 2017 Technique: AP and cephalad oblique views RIGHT clavicle. Report: Similar to the prior shoulder radiograph there is a minimally displaced oblique fracture at the distal third of the right clavicle. Remaining visualized bones are intact and appropriately aligned. IMPRESSION: Minimally displaced fracture at the distal third of the right clavicle.
[2017-01-08] MEDS: buPROPion TAB* 75 MG PO SCH (09:42)
[2017-01-08] MEDS: Venlafaxine EXT RELEASE CAP* 75 MG PO SCH (09:43)
[2017-01-08] MEDS: Vitamin THERAPEUTIC TAB PO SCH (09:43)
[2017-01-08] MEDS: Lisinopril TAB* 10 MG PO SCH (09:44)
--- NOTE | 2017-01-08 13:14 | PN ---
Subjective - Subjective Service Type: 83742 Hosp care 15 min low complexity Subjective: The patient is missing group when I find him in his room, isolating. He hands me a form that relates to holding his credit card payments due to his disability. I inform him that anything pertaining to disability must be handled through his outpatient providers. Litzy becomes upset, stating "You people aren't doing anything to help me. I'm not getting my stimulant and you' re not helping with my financial situation." He is reminded that he has been abusing cocaine and cannabis prior to coming in and this is not a profile that warrants psychostimulant treatment. "That's all everybody always wants to make a big deal out of. All I did was cocaine a couple times. I'm here because I'm overwhelmed." He also complains that he has not seen an orthopedist yet. When I spoke to Dr. Sue from [facility] yesterday, he indicated that outpatient follow up was all that was warranted. The patient denies active SI but states that he cannot handle his life, including the situation with his mother or his inability to work or get on disability. Objective - Appearance Appearance: Obese Dysmorphic Features: No Hygiene: Normal Grooming: Fairly Well Kept - Behavior Psychomotor Activities: Abnormal-Decreased Exhibits Abnormal Movement: No - Attitude and Relatedness Attitude and Relatedness: Irritable Eye Contact: Fair - Speech Quality: Unpressured Latencies: Normal Quantity: Appropriate - Mood Patient's Decription of Mood: "Upset" - Affect Observed Affect: Constricted Affect Consistent with: Dysphoria - Thought Process Patient's Thought Process: Goal Directed Thought Content: Yes Passive Wish, No Suicidal Planning, No Homicidal Ideation, No Paranoid Ideation - Sensorium Experiencing Hallucinations: No, Sensorium is Clear Type of Hallucinations: Visual: No, Auditory: No, Command: No - Level of Consciousness Level of Consciousness: Alert Orientation: Yes Intact, Yes Orientated to Time, Yes Orientated to Place, Yes Orientated to Person - Impulse Control Impulse Control: Poor - Insight and Judgement Insight and Judgement: Impaired - Group Participation Particating in Group Activities: No - Medication Management Medication Management Adherence: Yes Assessment - Assessment Merits Inpatient Hospitalization: For Immediate Safety, For Stabilization 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 single, white male with a history of polysubstance abuse of cocaine, cannabis and opioids who is on methadone maintenance therapy, who self-referred to the hospital seeking voluntary admission for vague SI. Plan - Plan Treatment Plan: Name: LITZY JUSTICE Birthdate: 1975 [id number] Patient's venlafaxine, bupropion, methadone and aripiprazole Maintaina have been resumed. Ortho recommended 2 view Xray of right clavicle, which demonstrate minimally displaced fracture. I have called their office again to see if they can send someone to speak with him. Will contact [facility] in [place], [place] for further collateral. Continued Medication Management: Continue Outpt Medication Medications: Current Medications Acetaminophen (Tylenol Tab*) 650 mg PO Q4H PRN PRN Reason: PAIN or TEMP > 101 F Last Admin: 01/08/17 06:15 Dose: 650 mg Al Hydrox/Mg Hydrox/Simethicone (Maalox Plus*) 30 ml PO Q4H PRN PRN Reason: INDIGESTION Aripiprazole (Abilializa Maintena (Nf)) 300 mg IM Q28D [facility] Last Admin: 01/06/17 16:19 Dose: 300 mg Atorvastatin Calcium (Lipitor*) 40 mg PO 1700 [facility] Last Admin: 01/07/17 19:01 Dose: Not Given Bupropion HCl (Wellbutrin Tab*) 75 mg PO QAM [facility] Last Admin: 01/08/17 09:42 Dose: 75 mg Cetirizine HCl (Zyrtec*) 10 mg PO QPM [facility] Last Admin: 01/07/17 19:01 Dose: Not Given Lisinopril (Prinivil Tab*) 20 mg PO QAM [facility] Last Admin: 01/08/17 09:44 Dose: 20 mg Methadone HCl (Dolophine Tab*) 120 mg PO DAILY [facility] Last Admin: 01/08/17 07:15 Dose: 120 mg Multivitamins (Theragran Tab*) 1 tab PO DAILY [facility] Last Admin: 01/08/17 09:43 Dose: 1 tab Venlafaxine HCl (Effexor Xr Cap*) 300 mg PO QAM [facility] Last Admin: 01/08/17 09:43 Dose: 300 mg - Discharge Plan Discharge Plan: Inpatient Hospitalization Lab Results - Lab Results Lab Results: 01/08/17 01/08/17 07:50 07:50 Hemoglobin A1c 5.3 Triglycerides 188 Cholesterol 211 LDL Cholesterol 133 HDL Cholesterol 40.4
[2017-01-08] MEDS: Cetirizine* 10 MG TAB PO SCH (18:03)
[2017-01-08] MEDS: Atorvastatin* 40 MG TAB PO SCH (18:03)
[2017-01-09] MEDS: Acetaminophen TAB* 325 MG PO PRN (05:27)
[2017-01-09] MEDS: Methadone TAB* 10 MG PO SCH ×2 (07:05→09:26)
[2017-01-09] MEDS: Venlafaxine EXT RELEASE CAP* 75 MG PO SCH (09:24)
[2017-01-09] MEDS: Vitamin THERAPEUTIC TAB PO SCH (09:24)
[2017-01-09] MEDS: buPROPion TAB* 75 MG PO SCH (09:24)
[2017-01-09] MEDS: Lisinopril TAB* 10 MG PO SCH (09:24)
--- NOTE | 2017-01-09 11:00 | PN ---
Subjective - Subjective Service Type: 93634 Hosp care 25 min moderate complexity Subjective: Litzy is seen by the full treatment team, including myself, CATHI Crouch, psychologist Dr. Umana, Rec therapists BLAISE Saeed, OSCAR Oconnor and CATHI Lr. He is tearful at times, feeling like the team is trying to kick him out of the hospital prematurely. He continues to note his recent disability denial and the illness of his mother in [facility] as his acute stressors. The team tries to get a sense of what his needs are. He reports that getting back on his medications and going to groups, which he does attend sporadically, are helpful interventions for him. He denies SI. After the meeting I was able to speak with Lars Avalos RN, Nica Giron ([phone] who reports that Litzy has had several dirty UDS tests with cocaine and cannabis and has missed several 1:1 sessions with his therapist Manny Pena [phone] They had scheduled a mandatory "Make and Keep" meeting with him for this week and intended to notify him that he either go back into inpatient rehab or they would discharge him from the methadone program. They also confirmed the 120mg daily dose. Nica indicated to me that they would be fine if we offered inpatient rehab referral from our facility. Objective - Appearance Appearance: Obese Dysmorphic Features: No Hygiene: Normal Grooming: Fairly Well Kept - Behavior Psychomotor Activities: Abnormal-Decreased Exhibits Abnormal Movement: No - Attitude and Relatedness Attitude and Relatedness: Needy Eye Contact: Fair - Speech Quality: Unpressured Latencies: Normal Quantity: Appropriate - Mood Patient's Decription of Mood: "Sad" - Affect Observed Affect: Tearful Affect Consistent with: Dysphoria - Thought Process Patient's Thought Process: Coherent Thought Content: No Passive Wish, No Suicidal Planning, No Homicidal Ideation, No Paranoid Ideation - Sensorium Experiencing Hallucinations: No, Sensorium is Clear Type of Hallucinations: Visual: No, Auditory: No, Command: No - Level of Consciousness Level of Consciousness: Alert Orientation: Yes Intact, Yes Orientated to Time, Yes Orientated to Place, Yes Orientated to Person - Impulse Control Impulse Control: Poor - Insight and Judgement Insight and Judgement: Impaired - Group Participation Particating in Group Activities: Yes - Medication Management Medication Management Adherence: Yes Assessment - Assessment Merits Inpatient Hospitalization: For Immediate Safety, For Stabilization 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 single, white male with a history of polysubstance abuse of cocaine, cannabis and opioids who is on methadone maintenance therapy, who self-referred to the hospital seeking voluntary admission for vague SI. Plan - Plan Treatment Plan: Name: LITZY JUSTICE Birthdate: 1975 [id number] Patient's venlafaxine, bupropion, methadone and aripiprazole Maintaina have been resumed. Ortho recommended outpatient follow up for minimally displaced fracture. [facility] methadone program in [place], [place] is strongly encouraging referral to inpatient drug rehab. Continue inpatient stabilization. Continued Medication Management: Continue Outpt Medication Medications: Current Medications Acetaminophen (Tylenol Tab*) 650 mg PO Q4H PRN PRN Reason: PAIN or TEMP > 101 F Last Admin: 01/09/17 05:27 Dose: 650 mg Al Hydrox/Mg Hydrox/Simethicone (Maalox Plus*) 30 ml PO Q4H PRN PRN Reason: INDIGESTION Aripiprazole (Abilify Maintena (Nf)) 300 mg IM Q28D [facility] Last Admin: 01/06/17 16:19 Dose: 300 mg Atorvastatin Calcium (Lipitor*) 40 mg PO 1700 [facility] Last Admin: 01/08/17 18:03 Dose: 40 mg Bupropion HCl (Wellbutrin Tab*) 75 mg PO QAM [facility] Last Admin: 01/09/17 09:24 Dose: 75 mg Cetirizine HCl (Zyrtec*) 10 mg PO QPM [facility] Last Admin: 01/08/17 18:03 Dose: 10 mg Lisinopril (Prinivil Tab*) 20 mg PO QAM [facility] Last Admin: 01/09/17 09:24 Dose: 20 mg Methadone HCl (Dolophine Tab*) 120 mg PO DAILY [facility] Last Admin: 01/09/17 09:26 Dose: Not Given Multivitamins (Theragran Tab*) 1 tab PO DAILY [facility] Last Admin: 01/09/17 09:24 Dose: 1 tab Venlafaxine HCl (Effexor Xr Cap*) 300 mg PO QAM [facility] Last Admin: 01/09/17 09:24 Dose: 300 mg - Discharge Plan Discharge Plan: Inpatient Hospitalization
--- NOTE | 2017-01-09 11:43 | PN ---
[facility]: Group Therapy Note - Service Type Service Type: 58097 Group Psychotherapy - Cognitive Behavioral Group Therapy ( CBT):Patient attended CBT programming this morning and presented with flat affect that did not vary with discussion. Although responsive to direct prompts to respond to questions, patient did not engage in spontaneous conversation.
[2017-01-09] MEDS: Atorvastatin* 40 MG TAB PO SCH (16:43)
[2017-01-09] MEDS: Cetirizine* 10 MG TAB PO SCH (16:44)
[2017-01-10] MEDS: Methadone TAB* 10 MG PO SCH (08:51)
[2017-01-10] MEDS: Lisinopril TAB* 10 MG PO SCH (08:55)
[2017-01-10] MEDS: buPROPion TAB* 75 MG PO SCH (08:55)
[2017-01-10] MEDS: Vitamin THERAPEUTIC TAB PO SCH (08:55)
[2017-01-10] MEDS: Venlafaxine EXT RELEASE CAP* 75 MG PO SCH (08:56)
--- NOTE | 2017-01-10 14:42 | PN ---
Subjective - Subjective Service Type: 68203 Hosp care 15 min low complexity Subjective: The patient is confronted today with the information we got from [facility] regarding his non-adherence with substance abuse treatment, multiple dirty urine drug screens and threat to his standing at the methadone clinic. He understands the information and agrees to a referral to inpatient substance abuse treatment. Eron continues to complain of 7/10 depression but denies SI. He is attending groups and seems more social today. Objective - Appearance Appearance: Obese Dysmorphic Features: No Hygiene: Normal Grooming: Fairly Well Kept - Behavior Psychomotor Activities: Normal Exhibits Abnormal Movement: No - Attitude and Relatedness Attitude and Relatedness: Cooperative Eye Contact: Fair - Speech Quality: Unpressured Latencies: Normal Quantity: Appropriate - Mood Patient's Decription of Mood: "Sad" - Affect Observed Affect: Constricted Affect Consistent with: Dysphoria - Thought Process Patient's Thought Process: Coherent Thought Content: No Passive Wish, No Suicidal Planning, No Homicidal Ideation, No Paranoid Ideation - Sensorium Experiencing Hallucinations: No, Sensorium is Clear Type of Hallucinations: Visual: No, Auditory: No, Command: No - Level of Consciousness Level of Consciousness: Alert Orientation: Yes Intact, Yes Orientated to Time, Yes Orientated to Place, Yes Orientated to Person - Impulse Control Impulse Control: Tenuous - Insight and Judgement Insight and Judgement: Fair - Group Participation Particating in Group Activities: Yes - Medication Management Medication Management Adherence: Yes Assessment - Assessment Merits Inpatient Hospitalization: For Immediate Safety, For Stabilization 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 single, white male with a history of polysubstance abuse of cocaine, cannabis and opioids who is on methadone maintenance therapy, who self-referred to the hospital seeking voluntary admission for vague SI. Plan - Plan Treatment Plan: Name: ERON JUSTICE Birthdate: 1975 [id number] Patient's venlafaxine, bupropion, methadone and aripiprazole Maintaina have been resumed. Ortho recommended outpatient follow up for minimally displaced fracture. [facility] methadone program in [place], [place] is strongly encouraging referral to inpatient drug rehab. Continue inpatient MH stabilization. Continued Medication Management: Continue Outpt Medication Medications: Current Medications Acetaminophen (Tylenol Tab*) 650 mg PO Q4H PRN PRN Reason: PAIN or TEMP > 101 F Last Admin: 01/09/17 05:27 Dose: 650 mg Al Hydrox/Mg Hydrox/Simethicone (Maalox Plus*) 30 ml PO Q4H PRN PRN Reason: INDIGESTION Aripiprazole (Abilializa Maintena (Nf)) 300 mg IM Q28D [facility] Last Admin: 01/06/17 16:19 Dose: 300 mg Atorvastatin Calcium (Lipitor*) 40 mg PO 1700 [facility] Last Admin: 01/09/17 16:43 Dose: 40 mg Bupropion HCl ([facility]rin Tab*) [facility] Last Admin: 01/10/17 08:55 Dose: 75 mg Cetirizine HCl (Zyrtec*) 10 mg PO QPM [facility] Last Admin: 01/09/17 16:44 Dose: 10 mg Lisinopril (Prinivil Tab*) 20 mg PO QAM [facility] Last Admin: 01/10/17 08:55 Dose: 20 mg Methadone HCl (Dolophine Tab*) 120 mg PO DAILY [facility] Last Admin: 01/10/17 08:51 Dose: 120 mg Multivitamins (Theragran Tab*) 1 tab PO DAILY [facility] Last Admin: 01/10/17 08:55 Dose: 1 tab Venlafaxine HCl (Effexor Xr Cap*) [facility] Last Admin: 01/10/17 08:56 Dose: 300 mg - Discharge Plan Discharge Plan: Inpatient Hospitalization
[2017-01-10] MEDS: Atorvastatin* 40 MG TAB PO SCH (17:47)
[2017-01-10] MEDS: Cetirizine* 10 MG TAB PO SCH (17:47)
[2017-01-11] MEDS: Methadone TAB* 10 MG PO SCH (08:15)
[2017-01-11] MEDS: Vitamin THERAPEUTIC TAB PO SCH (08:16)
[2017-01-11] MEDS: buPROPion TAB* 75 MG PO SCH (08:16)
[2017-01-11] MEDS: Lisinopril TAB* 10 MG PO SCH (08:16)
[2017-01-11] MEDS: Venlafaxine EXT RELEASE CAP* 75 MG PO SCH (08:20)
--- NOTE | 2017-01-11 16:27 | PN ---
Subjective - Subjective Service Type: 91729 Hosp care 15 min low complexity Subjective: Patient denies SI. Is awaiting placement to inpatient drug rehab setting. Attending groups. Affect appears improved. Objective - Appearance Appearance: Obese Dysmorphic Features: No Hygiene: Normal Grooming: Well Kept - Behavior Psychomotor Activities: Normal Exhibits Abnormal Movement: No - Attitude and Relatedness Attitude and Relatedness: Cooperative Eye Contact: Fair - Speech Quality: Unpressured Latencies: Normal Quantity: Appropriate - Mood Patient's Decription of Mood: "Sad" - Affect Observed Affect: Constricted Affect Consistent with: Dysphoria - Thought Process Patient's Thought Process: Coherent Thought Content: No Passive Wish, No Suicidal Planning, No Homicidal Ideation, No Paranoid Ideation - Sensorium Experiencing Hallucinations: No, Sensorium is Clear Type of Hallucinations: Visual: No, Auditory: No, Command: No - Level of Consciousness Level of Consciousness: Alert Orientation: Yes Intact, Yes Orientated to Time, Yes Orientated to Place, Yes Orientated to Person - Impulse Control Impulse Control: Tenuous - Insight and Judgement Insight and Judgement: Fair - Group Participation Particating in Group Activities: Yes - Medication Management Medication Management Adherence: Yes Assessment - Assessment Merits Inpatient Hospitalization: Consolidate Improvements, Pending Safe DC Plan 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 single, white male with a history of polysubstance abuse of cocaine, cannabis and opioids who is on methadone maintenance therapy, who self-referred to the hospital seeking voluntary admission for vague SI. Plan - Plan Treatment Plan: Name: LITZY JUSTICE Birthdate: 1975 [id number] Patient's venlafaxine, bupropion, methadone and aripiprazole Maintaina have been resumed. Ortho recommended outpatient follow up for minimally displaced fracture. Awaiting acceptance to inpatient drug rehab. Continue inpatient MH stabilization. Continued Medication Management: Continue Outpt Medication Medications: Current Medications Acetaminophen (Tylenol Tab*) 650 mg PO Q4H PRN PRN Reason: PAIN or TEMP > 101 F Last Admin: 01/09/17 05:27 Dose: 650 mg Al Hydrox/Mg Hydrox/Simethicone (Maalox Plus*) 30 ml PO Q4H PRN PRN Reason: INDIGESTION Aripiprazole ([place] (Nf)) 300 mg IM Q28D [facility] Last Admin: 01/06/17 16:19 Dose: 300 mg Atorvastatin Calcium (Lipitor*) 40 mg PO 1700 [facility] Last Admin: 01/10/17 17:47 Dose: 40 mg Bupropion HCl (Wellbutrin Tab*) 75 mg PO QAM [facility] Last Admin: 01/11/17 08:16 Dose: 75 mg Cetirizine HCl (Zyrtec*) 10 mg PO QPM [facility] Last Admin: 01/10/17 17:47 Dose: 10 mg Lisinopril (Prinivil Tab*) 20 mg PO QAM [facility] Last Admin: 01/11/17 08:16 Dose: 20 mg Methadone HCl (Dolophine Tab*) 120 mg PO DAILY [facility] Last Admin: 01/11/17 08:15 Dose: 120 mg Multivitamins (Theragran Tab*) 1 tab PO DAILY [facility] Last Admin: 01/11/17 08:16 Dose: 1 tab Nicotine (Nicotine Inhaler*) 10 mg INH Q2H PRN PRN Reason: CRAVING Nicotine (Nicotine Patch 21 Mg/24 Hr*) 1 patch TRANSDERM DAILY [facility] Nicotine Polacrilex (Nicotine Gum*) 2 mg PO Q2H PRN PRN Reason: CRAVING Pharmacy Profile Note (Nicotine Patch Removal Note*) 1 note FOLLOW UP 2100 [facility] Venlafaxine HCl (Effexor Xr Cap*) 300 mg PO QAM [facility] Last Admin: 01/11/17 08:20 Dose: 300 mg - Discharge Plan Discharge Plan: Drug/Alcohol Rehab
[2017-01-11] MEDS: Atorvastatin* 40 MG TAB PO SCH (17:27)
[2017-01-11] MEDS: Cetirizine* 10 MG TAB PO SCH (17:27)
[2017-01-11] MEDS: Nicotine PATCH 21 MG/24 HR* PATCH TRANSDERM SCH (17:49)
[2017-01-11] MEDS ORDERED: Mouth Piece, Nicotine* 1 EACH CARTRIDGE ONE (17:50)
[2017-01-11] MEDS: Nicotine Inhaler* 10 MG AMP INH PRN (17:50)
[2017-01-11] MEDS: Nicotine Patch Removal NOTE FOLLOW UP SCH (21:26)
[2017-01-12] MEDS: Acetaminophen TAB* 325 MG PO PRN (03:55)
[2017-01-12] MEDS: Methadone TAB* 10 MG PO SCH (07:05)
[2017-01-12] MEDS: Nicotine PATCH 21 MG/24 HR* PATCH TRANSDERM SCH (09:54)
[2017-01-12] MEDS: Nicotine Inhaler* 10 MG AMP INH PRN ×2 (09:55→19:06)
[2017-01-12] MEDS: Venlafaxine EXT RELEASE CAP* 75 MG PO SCH (09:57)
[2017-01-12] MEDS: Lisinopril TAB* 10 MG PO SCH (09:58)
[2017-01-12] MEDS: buPROPion TAB* 75 MG PO SCH (09:58)
[2017-01-12] MEDS: Vitamin THERAPEUTIC TAB PO SCH (09:58)
[2017-01-12] MEDS: Atorvastatin* 40 MG TAB PO SCH (16:43)
[2017-01-12] MEDS: Cetirizine* 10 MG TAB PO SCH (16:43)
[2017-01-12] MEDS: Nicotine Patch Removal NOTE FOLLOW UP SCH (22:07)
[2017-01-13] MEDS: Nicotine PATCH 21 MG/24 HR* PATCH TRANSDERM SCH (07:28)
[2017-01-13] MEDS: buPROPion TAB* 75 MG PO SCH (07:28)
[2017-01-13] MEDS: Methadone TAB* 10 MG PO SCH (07:29)
[2017-01-13] MEDS: Venlafaxine EXT RELEASE CAP* 75 MG PO SCH (07:29)
[2017-01-13] MEDS: Vitamin THERAPEUTIC TAB PO SCH (07:31)
[2017-01-13] MEDS: Lisinopril TAB* 10 MG PO SCH (07:31)
[2017-01-13] MEDS: Nicotine Inhaler* 10 MG AMP INH PRN (11:44)
[2017-01-13] MEDS: Nicotine GUM* 2 MG PO PRN ×4 (11:44→21:13)
[2017-01-13] MEDS: Atorvastatin* 40 MG TAB PO SCH (16:42)
[2017-01-13] MEDS: Cetirizine* 10 MG TAB PO SCH (16:42)
[2017-01-13] MEDS: Nicotine Patch Removal NOTE FOLLOW UP SCH (20:44)
[2017-01-14] MEDS: Lisinopril TAB* 10 MG PO SCH (08:22)
[2017-01-14] MEDS: Vitamin THERAPEUTIC TAB PO SCH (08:23)
[2017-01-14] MEDS: Methadone TAB* 10 MG PO SCH (08:23)
[2017-01-14] MEDS: Nicotine PATCH 21 MG/24 HR* PATCH TRANSDERM SCH (08:24)
[2017-01-14] MEDS: Venlafaxine EXT RELEASE CAP* 75 MG PO SCH (08:24)
[2017-01-14] MEDS: buPROPion TAB* 75 MG PO SCH (08:25)
[2017-01-14] MEDS: Nicotine Inhaler* 10 MG AMP INH PRN (09:16)
[2017-01-14] MEDS: Nicotine GUM* 2 MG PO PRN (12:35)
--- NOTE | 2017-01-14 13:22 | PN ---
Subjective - Subjective Service Type: 89025 Hosp care 15 min low complexity Subjective: Patient with no complaints. Still agreeable to going to rehab. Denies SI or HI. Objective - Appearance Appearance: Obese Dysmorphic Features: No Hygiene: Normal Grooming: Fairly Well Kept - Behavior Psychomotor Activities: Normal Exhibits Abnormal Movement: No - Attitude and Relatedness Attitude and Relatedness: Cooperative Eye Contact: Fair - Speech Quality: Unpressured Latencies: Normal Quantity: Appropriate - Mood Patient's Decription of Mood: "Fine" - Affect Observed Affect: Fair Affect Consistent with: Euthymia - Thought Process Patient's Thought Process: Coherent Thought Content: No Passive Wish, No Suicidal Planning, No Homicidal Ideation, No Paranoid Ideation - Sensorium Experiencing Hallucinations: No, Sensorium is Clear Type of Hallucinations: Visual: No, Auditory: No, Command: No - Level of Consciousness Level of Consciousness: Alert Orientation: Yes Intact, Yes Orientated to Time, Yes Orientated to Place, Yes Orientated to Person - Impulse Control Impulse Control: Tenuous - Insight and Judgement Insight and Judgement: Fair - Group Participation Particating in Group Activities: Yes - Medication Management Medication Management Adherence: Yes Assessment - Assessment Merits Inpatient Hospitalization: Consolidate Improvements, Pending Safe DC Plan 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 single, white male with a history of polysubstance abuse of cocaine, cannabis and opioids who is on methadone maintenance therapy, who self-referred to the hospital seeking voluntary admission for vague SI. Plan - Plan Treatment Plan: Name: LITZY JUSTICE Birthdate: 1975 [id number] Patient's venlafaxine, bupropion, methadone and aripiprazole Maintaina have been resumed. Ortho recommended outpatient follow up for minimally displaced fracture. Awaiting acceptance to inpatient drug rehab. Continue inpatient MH stabilization. Continued Medication Management: Continue Outpt Medication Medications: Current Medications Acetaminophen (Tylenol Tab*) 650 mg PO Q4H PRN PRN Reason: PAIN or TEMP > 101 F Last Admin: 01/12/17 03:55 Dose: 650 mg Al Hydrox/Mg Hydrox/Simethicone (Maalox Plus*) 30 ml PO Q4H PRN PRN Reason: INDIGESTION Aripiprazole ([place] (Nf)) 300 mg IM Q28D [facility] Last Admin: 01/06/17 16:19 Dose: 300 mg Atorvastatin Calcium (Lipitor*) 40 mg PO 1700 [facility] Last Admin: 01/13/17 16:42 Dose: 40 mg Bupropion HCl (Wellbutrin Tab*) 75 mg PO QAM [facility] Last Admin: 01/14/17 08:25 Dose: 75 mg Cetirizine HCl (Zyrtec*) 10 mg PO QPM [facility] Last Admin: 01/13/17 16:42 Dose: 10 mg Lisinopril (Prinivil Tab*) 20 mg PO QAM [facility] Last Admin: 01/14/17 08:22 Dose: 20 mg Methadone HCl (Dolophine Tab*) 120 mg PO DAILY [facility] Last Admin: 01/14/17 08:23 Dose: 120 mg Multivitamins (Theragran Tab*) 1 tab PO DAILY [facility] Last Admin: 01/14/17 08:23 Dose: 1 tab Nicotine (Nicotine Inhaler*) 10 mg INH Q2H PRN PRN Reason: CRAVING Last Admin: 01/14/17 09:16 Dose: 10 mg Nicotine (Nicotine Patch 21 Mg/24 Hr*) 1 patch TRANSDERM DAILY [facility] Last Admin: 01/14/17 08:24 Dose: 1 patch Nicotine Polacrilex (Nicotine Gum*) 2 mg PO Q2H PRN PRN Reason: CRAVING Last Admin: 01/14/17 12:35 Dose: 2 mg Pharmacy Profile Note (Nicotine Patch Removal Note*) 1 note FOLLOW UP 2100 [facility] Last Admin: 01/13/17 20:44 Dose: 1 note Venlafaxine HCl (Effexor Xr Cap*) 300 mg PO QAM [facility] Last Admin: 01/14/17 08:24 Dose: 300 mg - Discharge Plan Discharge Plan: Drug/Alcohol Rehab
[2017-01-14] MEDS: Atorvastatin* 40 MG TAB PO SCH (18:15)
[2017-01-14] MEDS: Cetirizine* 10 MG TAB PO SCH (18:15)
[2017-01-14] MEDS: Nicotine Patch Removal NOTE FOLLOW UP SCH (21:07)
[2017-01-15] MEDS: Methadone TAB* 10 MG PO SCH (07:10)
[2017-01-15] MEDS: Venlafaxine EXT RELEASE CAP* 75 MG PO SCH (08:19)
[2017-01-15] MEDS: buPROPion TAB* 75 MG PO SCH (08:19)
[2017-01-15] MEDS: Lisinopril TAB* 10 MG PO SCH (08:19)
[2017-01-15] MEDS: Vitamin THERAPEUTIC TAB PO SCH (08:19)
[2017-01-15] MEDS: Nicotine PATCH 21 MG/24 HR* PATCH TRANSDERM SCH (08:20)
--- NOTE | 2017-01-15 11:46 | PN ---
MHU: Group Therapy Note - Service Type Service Type: [id number] Group Psychotherapy - Cognitive Behavioral Group Therapy ( CBT):Patient was attentive and participatory in CBT programming this morning, and remained in good behavioral control. Patient expressed positive insights regarding relevant treatment interventions and goals.
--- NOTE | 2017-01-15 12:10 | PN ---
Subjective - Subjective Service Type: 85572 Hosp care 15 min low complexity Subjective: Patient is calm, pleasant, active in groups and safe on all checks. Still seeking substance abuse treatment as recommended by outpatient [facility] providers. No new complaints. Denies HI or SI. Objective - Appearance Appearance: Obese Dysmorphic Features: No Hygiene: Normal Grooming: Fairly Well Kept - Behavior Psychomotor Activities: Normal Exhibits Abnormal Movement: No - Attitude and Relatedness Attitude and Relatedness: Cooperative Eye Contact: Fair - Speech Quality: Unpressured Latencies: Normal Quantity: Appropriate - Mood Patient's Decription of Mood: "Good" - Affect Observed Affect: Fair Affect Consistent with: Euthymia - Thought Process Patient's Thought Process: Goal Directed Thought Content: No Passive Wish, No Suicidal Planning, No Homicidal Ideation, No Paranoid Ideation - Sensorium Experiencing Hallucinations: No, Sensorium is Clear Type of Hallucinations: Visual: No, Auditory: No, Command: No - Level of Consciousness Level of Consciousness: Alert Orientation: Yes Intact, Yes Orientated to Time, Yes Orientated to Place, Yes Orientated to Person - Impulse Control Impulse Control: Tenuous - Insight and Judgement Insight and Judgement: Fair - Group Participation Particating in Group Activities: Yes - Medication Management Medication Management Adherence: Yes Assessment - Assessment Merits Inpatient Hospitalization: Consolidate Improvements, Pending Safe DC Plan 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 single, white male with a history of polysubstance abuse of cocaine, cannabis and opioids who is on methadone maintenance therapy, who self-referred to the hospital seeking voluntary admission for vague SI. Plan - Plan Treatment Plan: Name: LITZY JUSTICE Birthdate: 1975 [id number] Patient's venlafaxine, bupropion, methadone and aripiprazole Maintaina have been resumed. Ortho recommended outpatient follow up for minimally displaced fracture. Awaiting acceptance to inpatient drug rehab. Continue inpatient MH stabilization. Continued Medication Management: Continue Outpt Medication Medications: Current Medications Acetaminophen (Tylenol Tab*) 650 mg PO Q4H PRN PRN Reason: PAIN or TEMP > 101 F Last Admin: 01/12/17 03:55 Dose: 650 mg Al Hydrox/Mg Hydrox/Simethicone (Maalox Plus*) 30 ml PO Q4H PRN PRN Reason: INDIGESTION Aripiprazole (Abilializa Maintena (Nf)) 300 mg IM Q28D [facility] Last Admin: 01/06/17 16:19 Dose: 300 mg Atorvastatin Calcium (Lipitor*) 40 mg PO 1700 [facility] Last Admin: 01/14/17 18:15 Dose: 40 mg Bupropion HCl (Wellbutrin Tab*) 75 mg PO QAM [facility] Last Admin: 01/15/17 08:19 Dose: 75 mg Cetirizine HCl (Zyrtec*) 10 mg PO QPM [facility] Last Admin: 01/14/17 18:15 Dose: 10 mg Lisinopril (Prinivil Tab*) 20 mg PO QAM [facility] Last Admin: 01/15/17 08:19 Dose: 20 mg Methadone HCl (Dolophine Tab*) 120 mg PO DAILY [facility] Last Admin: 01/15/17 07:10 Dose: 120 mg Multivitamins (Theragran Tab*) 1 tab PO DAILY [facility] Last Admin: 01/15/17 08:19 Dose: 1 tab Nicotine (Nicotine Inhaler*) 10 mg INH Q2H PRN PRN Reason: CRAVING Last Admin: 01/14/17 09:16 Dose: 10 mg Nicotine (Nicotine Patch 21 Mg/24 Hr*) 1 patch TRANSDERM DAILY [facility] Last Admin: 01/15/17 08:20 Dose: 1 patch Nicotine Polacrilex (Nicotine Gum*) 2 mg PO Q2H PRN PRN Reason: CRAVING Last Admin: 01/14/17 12:35 Dose: 2 mg Pharmacy Profile Note (Nicotine Patch Removal Note*) 1 note FOLLOW UP 2100 [facility] Last Admin: 01/14/17 21:07 Dose: 1 note Venlafaxine HCl (Effexor Xr Cap*) 300 mg PO QAM [facility] Last Admin: 01/15/17 08:19 Dose: 300 mg - Discharge Plan Discharge Plan: Drug/Alcohol Rehab
[2017-01-15] MEDS: Cetirizine* 10 MG TAB PO SCH (17:13)
[2017-01-15] MEDS: Atorvastatin* 40 MG TAB PO SCH (17:13)
[2017-01-15] MEDS: Nicotine GUM* 2 MG PO PRN (17:15)
[2017-01-15] MEDS: Nicotine Patch Removal NOTE FOLLOW UP SCH (20:31)
[2017-01-16] MEDS: Methadone TAB* 10 MG PO SCH (08:15)
[2017-01-16] MEDS: buPROPion TAB* 75 MG PO SCH (10:20)
[2017-01-16] MEDS: Lisinopril TAB* 10 MG PO SCH (10:21)
[2017-01-16] MEDS: Vitamin THERAPEUTIC TAB PO SCH (10:21)
[2017-01-16] MEDS: Venlafaxine EXT RELEASE CAP* 75 MG PO SCH (10:21)
[2017-01-16] MEDS: Nicotine PATCH 21 MG/24 HR* PATCH TRANSDERM SCH (10:22)
[2017-01-16] MEDS: Nicotine GUM* 2 MG PO PRN ×3 (10:24→18:09)
[2017-01-16] MEDS: Nicotine Inhaler* 10 MG AMP INH PRN ×3 (10:30→18:09)
--- NOTE | 2017-01-16 12:54 | PN ---
Subjective - Subjective Service Type: 45911 Hosp care 15 min low complexity Subjective: Patient remains mildly depressed but is tolerating his medications well and denies SI. He is agreeable with inpatient rehab and I understand that he has been accepted at the [facility] in [place], [place]. Patient continues to complain of clavicular pain and wonders how he can follow up with outpatient Orthopedics if he's going to inpatient rehab for 4 weeks. Objective - Appearance Appearance: Obese Dysmorphic Features: No Hygiene: Normal Grooming: Fairly Well Kept - Behavior Psychomotor Activities: Normal Exhibits Abnormal Movement: No - Attitude and Relatedness Attitude and Relatedness: Cooperative Eye Contact: Fair - Speech Quality: Unpressured Latencies: Normal Quantity: Appropriate - Mood Patient's Decription of Mood: "Fine" - Affect Observed Affect: Fair Affect Consistent with: Euthymia - Thought Process Patient's Thought Process: Coherent Thought Content: No Passive Wish, No Suicidal Planning, No Homicidal Ideation, No Paranoid Ideation - Sensorium Experiencing Hallucinations: No, Sensorium is Clear Type of Hallucinations: Visual: No, Auditory: No, Command: No - Level of Consciousness Level of Consciousness: Alert Orientation: Yes Intact, Yes Orientated to Time, Yes Orientated to Place, Yes Orientated to Person - Impulse Control Impulse Control: Tenuous - Insight and Judgement Insight and Judgement: Fair - Group Participation Particating in Group Activities: Yes - Medication Management Medication Management Adherence: Yes Assessment - Assessment Merits Inpatient Hospitalization: Consolidate Improvements, Pending Safe DC Plan 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 single, white male with a history of polysubstance abuse of cocaine, cannabis and opioids who is on methadone maintenance therapy, who self-referred to the hospital seeking voluntary admission for vague SI. Plan - Plan Treatment Plan: Name: LITZY JUSTICE Birthdate: 1975 [id number] Patient's venlafaxine, bupropion, methadone and aripiprazole Maintaina have been resumed. I left a message with Dr. Sue, the on-call Orthopedist, about the patient's fractured clavicle. Specifically, we are wondering how the patient can follow up outpatient if he's going to a 4-week inpatient rehab. Awaiting acceptance to inpatient drug rehab. Continue inpatient MH stabilization. Continued Medication Management: Continue Outpt Medication Medications: Current Medications Acetaminophen (Tylenol Tab*) 650 mg PO Q4H PRN PRN Reason: PAIN or TEMP > 101 F Last Admin: 01/12/17 03:55 Dose: 650 mg Al Hydrox/Mg Hydrox/Simethicone (Maalox Plus*) 30 ml PO Q4H PRN PRN Reason: INDIGESTION Aripiprazole (Abilializa Maintena (Nf)) 300 mg IM Q28D [facility] Last Admin: 01/06/17 16:19 Dose: 300 mg Atorvastatin Calcium (Lipitor*) 40 mg PO 1700 [facility] Last Admin: 01/15/17 17:13 Dose: 40 mg Bupropion HCl (Wellbutrin Tab*) 75 mg PO QAM [facility] Last Admin: 01/16/17 10:20 Dose: 75 mg Cetirizine HCl (Zyrtec*) 10 mg PO QPM [facility] Last Admin: 01/15/17 17:13 Dose: 10 mg Lisinopril (Prinivil Tab*) 20 mg PO QAM [facility] Last Admin: 01/16/17 10:21 Dose: 20 mg Methadone HCl (Dolophine Tab*) 120 mg PO DAILY [facility] Last Admin: 01/16/17 08:15 Dose: 120 mg Multivitamins (Theragran Tab*) 1 tab PO DAILY [facility] Last Admin: 01/16/17 10:21 Dose: 1 tab Nicotine (Nicotine Inhaler*) 10 mg INH Q2H PRN PRN Reason: CRAVING Last Admin: 01/16/17 10:30 Dose: 10 mg Nicotine (Nicotine Patch 21 Mg/24 Hr*) 1 patch TRANSDERM DAILY [facility] Last Admin: 01/16/17 10:22 Dose: 1 patch Nicotine Polacrilex (Nicotine Gum*) 2 mg PO Q2H PRN PRN Reason: CRAVING Last Admin: 01/16/17 10:24 Dose: 2 mg Pharmacy Profile Note (Nicotine Patch Removal Note*) 1 note FOLLOW UP 2100 [facility] Last Admin: 01/15/17 20:31 Dose: 1 note Venlafaxine HCl (Effexor Xr Cap*) 300 mg PO QAM [facility] Last Admin: 01/16/17 10:21 Dose: 300 mg - Discharge Plan Discharge Plan: Drug/Alcohol Rehab
--- NOTE | 2017-01-16 13:59 | PN ---
MHU: Group Therapy Note - Service Type Service Type: [id number] Group Psychotherapy - Cognitive Behavioral Group Therapy ( CBT):Patient was attentive and participatory in CBT programming this morning, and remained in good behavioral control. Patient expressed positive insights regarding relevant treatment interventions and goals.
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
--- NOTE | 2017-01-16 16:06 | RAD ---
INDICATION: Traumatic fracture right clavicle COMPARISON: Right clavicle January 08, 2017 TECHNIQUE: AP views were obtained. FINDINGS: There is again a mildly displaced mid to distal clavicular fracture. There is no bridging callus. The radiographic appearance is unchanged. No additional findings. IMPRESSION: NO SIGNIFICANT INTERVAL CHANGE IN THE MID TO DISTAL CLAVICULAR FRACTURE.
[2017-01-16] MEDS ORDERED: CMCS: Melatonin (NF) 3 MG TAB PO PRN (16:31)
[2017-01-16] MEDS: Atorvastatin* 40 MG TAB PO SCH (18:08)
[2017-01-16] MEDS: Cetirizine* 10 MG TAB PO SCH (18:08)
[2017-01-16] MEDS: Nicotine Patch Removal NOTE FOLLOW UP SCH (21:29)
[2017-01-17] MEDS: Methadone TAB* 10 MG PO SCH (08:18)
[2017-01-17] MEDS ORDERED: Mouth Piece, Nicotine* 1 EACH CARTRIDGE ONE (08:42)
[2017-01-17] MEDS: Lisinopril TAB* 10 MG PO SCH (08:43)
[2017-01-17] MEDS: buPROPion TAB* 75 MG PO SCH (08:45)
[2017-01-17] MEDS: Venlafaxine EXT RELEASE CAP* 75 MG PO SCH (08:45)
[2017-01-17] MEDS: Nicotine Inhaler* 10 MG AMP INH PRN ×2 (08:46→15:44)
[2017-01-17] MEDS: Nicotine GUM* 2 MG PO PRN (08:46)
[2017-01-17] MEDS: Vitamin THERAPEUTIC TAB PO SCH (08:46)
[2017-01-17] MEDS: Nicotine PATCH 21 MG/24 HR* PATCH TRANSDERM SCH (08:50)
--- NOTE | 2017-01-17 14:58 | PN ---
Subjective - Subjective Service Type: 08526 Hosp care 15 min low complexity Subjective: Litzy continues to deny SI. He is agreeable with transfer to [facility] but discloses some continued concerns about his fractured right clavicle. Repeat xrays indicate no change and physical exam by orthopedics yesterday suggests that the wound is healing well. They are recommending repeat xray in 2 weeks and outpatient follow up with them after discharge from rehab. Litzy expresses his concern about how the xray will get done at [facility], which is not a [facility] hospital. I talked with CATHI Rhodes who indicates she will make sure CP staff are aware of his need for right clavicular xray on 01/30. Patient requested trazodone for insomnia but pharmacy notes a risk of arrhythmia when this medication is used along with methadone. We are trying melatonin instead. Objective - Appearance Appearance: Obese Dysmorphic Features: No Hygiene: Normal Grooming: Fairly Well Kept - Behavior Psychomotor Activities: Normal Exhibits Abnormal Movement: No - Attitude and Relatedness Attitude and Relatedness: Cooperative Eye Contact: Good - Speech Quality: Unpressured Latencies: Normal Quantity: Appropriate - Mood Patient's Decription of Mood: "Fine" - Affect Observed Affect: Fair Affect Consistent with: Euthymia - Thought Process Patient's Thought Process: Coherent Thought Content: No Passive Wish, No Suicidal Planning, No Homicidal Ideation, No Paranoid Ideation - Sensorium Experiencing Hallucinations: No, Sensorium is Clear Type of Hallucinations: Visual: No, Auditory: No, Command: No - Level of Consciousness Level of Consciousness: Alert Orientation: Yes Intact, Yes Orientated to Time, Yes Orientated to Place, Yes Orientated to Person - Impulse Control Impulse Control: Tenuous - Insight and Judgement Insight and Judgement: Fair - Group Participation Particating in Group Activities: Yes - Medication Management Medication Management Adherence: Yes Assessment - Assessment Merits Inpatient Hospitalization: Consolidate Improvements, Pending Safe DC Plan 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 single, white male with a history of polysubstance abuse of cocaine, cannabis and opioids who is on methadone maintenance therapy, who self-referred to the hospital seeking voluntary admission for vague SI. Plan - Plan Treatment Plan: Name: LITYZ JUSTICE Birthdate: 1975 [id number] Patient's venlafaxine, bupropion, methadone and aripiprazole Maintaina have been resumed. Will need repeat clavicular xray on 01/30/17. Will alert [facility] to this. Await transfer to [facility]. Continued Medication Management: Continue Outpt Medication Medications: Current Medications Acetaminophen (Tylenol Tab*) 650 mg PO Q4H PRN PRN Reason: PAIN or TEMP > 101 F Last Admin: 01/12/17 03:55 Dose: 650 mg Al Hydrox/Mg Hydrox/Simethicone (Maalox Plus*) 30 ml PO Q4H PRN PRN Reason: INDIGESTION Aripiprazole (Abilify Maintena (Nf)) 300 mg IM Q28D [facility] Last Admin: 01/06/17 16:19 Dose: 300 mg Atorvastatin Calcium (Lipitor*) 40 mg PO 1700 [facility] Last Admin: 01/16/17 18:08 Dose: 40 mg Bupropion HCl (Wellbutrin Tab*) 75 mg PO QAM [facility] Last Admin: 01/17/17 08:45 Dose: 75 mg Cetirizine HCl (Zyrtec*) 10 mg PO QPM [facility] Last Admin: 01/16/17 18:08 Dose: 10 mg Lisinopril (Prinivil Tab*) 20 mg PO QAM [facility] Last Admin: 01/17/17 08:43 Dose: 20 mg Melatonin (Melatonin (Nf)) 6 mg PO BEDTIME PRN PRN Reason: INSOMNIA Last Admin: 01/16/17 20:24 Dose: 6 mg Methadone HCl (Dolophine Tab*) 120 mg PO DAILY [facility] Last Admin: 01/17/17 08:18 Dose: 120 mg Multivitamins (Theragran Tab*) 1 tab PO DAILY [facility] Last Admin: 01/17/17 08:46 Dose: 1 tab Nicotine (Nicotine Inhaler*) 10 mg INH Q2H PRN PRN Reason: CRAVING Last Admin: 01/17/17 08:46 Dose: 10 mg Nicotine (Nicotine Patch 21 Mg/24 Hr*) 1 patch TRANSDERM DAILY [facility] Last Admin: 01/17/17 08:50 Dose: 1 patch Nicotine Polacrilex (Nicotine Gum*) 2 mg PO Q2H PRN PRN Reason: CRAVING Last Admin: 01/17/17 08:46 Dose: 2 mg Pharmacy Profile Note (Nicotine Patch Removal Note*) 1 note FOLLOW UP 2100 [facility] Last Admin: 01/16/17 21:29 Dose: Not Given Venlafaxine HCl (Effexor Xr Cap*) 300 mg PO QAM [facility] Last Admin: 01/17/17 08:45 Dose: 300 mg - Discharge Plan Discharge Plan: Drug/Alcohol Rehab
[2017-01-17] MEDS: Atorvastatin* 40 MG TAB PO SCH (17:14)
[2017-01-17] MEDS: Cetirizine* 10 MG TAB PO SCH (17:14)
[2017-01-17] MEDS: Nicotine Patch Removal NOTE FOLLOW UP SCH (21:05)
[2017-01-18] MEDS: Methadone TAB* 10 MG PO SCH (08:12)
[2017-01-18] MEDS: Nicotine PATCH 21 MG/24 HR* PATCH TRANSDERM SCH (08:12)
[2017-01-18] MEDS: Lisinopril TAB* 10 MG PO SCH (08:14)
[2017-01-18] MEDS: Vitamin THERAPEUTIC TAB PO SCH (08:14)
[2017-01-18] MEDS: buPROPion TAB* 75 MG PO SCH (08:14)
[2017-01-18] MEDS: Venlafaxine EXT RELEASE CAP* 75 MG PO SCH (08:14)
[2017-01-18] MEDS: Acetaminophen TAB* 325 MG PO PRN (09:53)
--- NOTE | 2017-01-18 11:37 | PN ---
MHU: Group Therapy Note - Service Type Service Type: [id number] Group Psychotherapy - Cognitive Behavioral Group Therapy ( CBT):Patient was attentive and participatory in CBT programming this morning, and remained in good behavioral control. Patient expressed positive insights regarding relevant treatment interventions and goals.
[2017-01-18] MEDS: Nicotine Inhaler* 10 MG AMP INH PRN ×3 (12:49→19:38)
--- NOTE | 2017-01-18 14:58 | PN ---
Subjective - Subjective Service Type: 91077 Hosp care 15 min low complexity Subjective: Patient has no complaints. States his acceptance to [facility] [place] has been delayed to Saturday. Denies SI. States clavicular pain is improving. Objective - Appearance Appearance: Obese Dysmorphic Features: No Hygiene: Normal Grooming: Well Kept - Behavior Psychomotor Activities: Normal Exhibits Abnormal Movement: No - Attitude and Relatedness Attitude and Relatedness: Cooperative Eye Contact: Fair - Speech Quality: Unpressured Latencies: Normal Quantity: Appropriate - Mood Patient's Decription of Mood: "Good" - Affect Observed Affect: Fair Affect Consistent with: Euthymia - Thought Process Patient's Thought Process: Coherent Thought Content: No Passive Wish, No Suicidal Planning, No Homicidal Ideation, No Paranoid Ideation - Sensorium Experiencing Hallucinations: No, Sensorium is Clear Type of Hallucinations: Visual: No, Auditory: No, Command: No - Level of Consciousness Level of Consciousness: Alert Orientation: Yes Intact, Yes Orientated to Time, Yes Orientated to Place, Yes Orientated to Person - Impulse Control Impulse Control: Tenuous - Insight and Judgement Insight and Judgement: Fair - Group Participation Particating in Group Activities: Yes - Medication Management Medication Management Adherence: Yes Assessment - Assessment Merits Inpatient Hospitalization: Consolidate Improvements, Pending Safe DC Plan 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 single, white male with a history of polysubstance abuse of cocaine, cannabis and opioids who is on methadone maintenance therapy, who self-referred to the hospital seeking voluntary admission for vague SI. Plan - Plan Treatment Plan: Name: LITZY JUSTICE Birthdate: 1975 [id number] Patient's venlafaxine, bupropion, methadone and aripiprazole Maintaina have been resumed. Will need repeat clavicular xray on 01/30/17. Will alert [facility] [place] to this. Await transfer to [facility]. Continued Medication Management: Continue Outpt Medication Medications: Current Medications Acetaminophen (Tylenol Tab*) 650 mg PO Q4H PRN PRN Reason: PAIN or TEMP > 101 F Last Admin: 01/18/17 09:53 Dose: 650 mg Al Hydrox/Mg Hydrox/Simethicone (Maalox Plus*) 30 ml PO Q4H PRN PRN Reason: INDIGESTION Aripiprazole (Jaja Loua (Nf)) 300 mg IM Q28D [facility] Last Admin: 01/06/17 16:19 Dose: 300 mg Atorvastatin Calcium (Lipitor*) 40 mg PO 1700 [facility] Last Admin: 01/17/17 17:14 Dose: 40 mg Bupropion HCl (Wellbutrin Tab*) 75 mg PO QAM [facility] Last Admin: 01/18/17 08:14 Dose: 75 mg Cetirizine HCl (Zyrtec*) 10 mg PO QPM [facility] Last Admin: 01/17/17 17:14 Dose: 10 mg Lisinopril (Prinivil Tab*) 20 mg PO QAM [facility] Last Admin: 01/18/17 08:14 Dose: 20 mg Melatonin (Melatonin (Nf)) 6 mg PO BEDTIME PRN PRN Reason: INSOMNIA Last Admin: 01/16/17 20:24 Dose: 6 mg Methadone HCl (Dolophine Tab*) 120 mg PO DAILY [facility] Last Admin: 01/18/17 08:12 Dose: 120 mg Multivitamins (Theragran Tab*) 1 tab PO DAILY [facility] Last Admin: 01/18/17 08:14 Dose: 1 tab Nicotine (Nicotine Inhaler*) 10 mg INH Q2H PRN PRN Reason: CRAVING Last Admin: 01/18/17 12:49 Dose: 10 mg Nicotine (Nicotine Patch 21 Mg/24 Hr*) 1 patch TRANSDERM DAILY [facility] Last Admin: 01/18/17 08:12 Dose: 1 patch Nicotine Polacrilex (Nicotine Gum*) 2 mg PO Q2H PRN PRN Reason: CRAVING Last Admin: 01/17/17 08:46 Dose: 2 mg Pharmacy Profile Note (Nicotine Patch Removal Note*) 1 note FOLLOW UP 2100 [facility] Last Admin: 01/17/17 21:05 Dose: 1 note Venlafaxine HCl (Effexor Xr Cap*) 300 mg PO QAM [facility] Last Admin: 01/18/17 08:14 Dose: 300 mg - Discharge Plan Discharge Plan: Drug/Alcohol Rehab
[2017-01-18] MEDS: Cetirizine* 10 MG TAB PO SCH (17:23)
[2017-01-18] MEDS: Atorvastatin* 40 MG TAB PO SCH (17:23)
[2017-01-18] MEDS: Nicotine GUM* 2 MG PO PRN (20:56)
[2017-01-18] MEDS: Nicotine Patch Removal NOTE FOLLOW UP SCH (22:11)
[2017-01-19] MEDS: Nicotine Inhaler* 10 MG AMP INH PRN ×11 (00:10→21:36)
[2017-01-19] MEDS: Methadone TAB* 10 MG PO SCH (08:02)
[2017-01-19] MEDS: buPROPion TAB* 75 MG PO SCH (08:04)
[2017-01-19] MEDS: Vitamin THERAPEUTIC TAB PO SCH (08:04)
[2017-01-19] MEDS: Venlafaxine EXT RELEASE CAP* 75 MG PO SCH (08:04)
[2017-01-19] MEDS: Nicotine PATCH 21 MG/24 HR* PATCH TRANSDERM SCH (08:07)
[2017-01-19] MEDS: Lisinopril TAB* 10 MG PO SCH (09:51)
[2017-01-19] MEDS: Nicotine GUM* 2 MG PO PRN ×4 (09:52→19:13)
[2017-01-19] MEDS: Atorvastatin* 40 MG TAB PO SCH (17:23)
[2017-01-19] MEDS: Cetirizine* 10 MG TAB PO SCH (17:23)
[2017-01-19] MEDS: Nicotine Patch Removal NOTE FOLLOW UP SCH (19:15)
[2017-01-20] MEDS: Nicotine Inhaler* 10 MG AMP INH PRN ×9 (00:45→20:28)
[2017-01-20] MEDS: Nicotine PATCH 21 MG/24 HR* PATCH TRANSDERM SCH (07:43)
[2017-01-20] MEDS: Methadone TAB* 10 MG PO SCH (07:45)
[2017-01-20] MEDS: Venlafaxine EXT RELEASE CAP* 75 MG PO SCH (07:45)
[2017-01-20] MEDS: Lisinopril TAB* 10 MG PO SCH (07:45)
[2017-01-20] MEDS: buPROPion TAB* 75 MG PO SCH (07:47)
[2017-01-20] MEDS: Vitamin THERAPEUTIC TAB PO SCH (07:47)
[2017-01-20] MEDS: Nicotine GUM* 2 MG PO PRN ×5 (09:39→20:28)
[2017-01-20] MEDS: Atorvastatin* 40 MG TAB PO SCH (16:05)
[2017-01-20] MEDS: Cetirizine* 10 MG TAB PO SCH (17:24)
[2017-01-20] MEDS: Nicotine Patch Removal NOTE FOLLOW UP SCH (22:40)
[2017-01-21] MEDS: Nicotine Inhaler* 10 MG AMP INH PRN ×3 (05:03→11:12)
[2017-01-21] MEDS: Venlafaxine EXT RELEASE CAP* 75 MG PO SCH (07:34)
[2017-01-21] MEDS: Lisinopril TAB* 10 MG PO SCH (07:34)
[2017-01-21] MEDS: buPROPion TAB* 75 MG PO SCH (07:34)
[2017-01-21] MEDS: Vitamin THERAPEUTIC TAB PO SCH (07:34)
[2017-01-21] MEDS: Nicotine PATCH 21 MG/24 HR* PATCH TRANSDERM SCH (07:34)
[2017-01-21] MEDS: Methadone TAB* 10 MG PO SCH (08:00)
[2017-01-21] MEDS: Nicotine GUM* 2 MG PO PRN (09:20)
[2017-01-21 10:09] VITALS: BP 120/86
[2017-01-21] MEDS ORDERED: Mirtazapine TAB* 15 MG PO SCH (21:00)
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
== END 2017-01-21 12:30 | disposition home or self-care (01) | DRG 773 ==
LOC: ED 14:52 → BSU 23:23
PROVIDERS: ADMIT Psychiatry & Neurology Psychiatry; ATTEND Psychiatry & Neurology Psychiatry
PROC: GZHZZZZ Group Psychotherapy (ICD-10-PCS; principal; 2017-01-08)
DX: F14.94 Cocaine use, unspecified with cocaine-induced mood disorder (principal); F11.90 Opioid use, unspecified, uncomplicated; Z68.41 Body mass index [BMI] 40.0-44.9, adult; I10 Essential (primary) hypertension; F12.90 Cannabis use, unspecified, uncomplicated; E66.9 Obesity, unspecified; E03.9 Hypothyroidism, unspecified; F32.9 Major depressive disorder, single episode, unspecified; S42.91XD Fracture of right shoulder girdle, part unspecified, subsequent encounter for fracture with routine healing; F25.9 Schizoaffective disorder, unspecified; Z88.0 Allergy status to penicillin; E78.00 Pure hypercholesterolemia, unspecified; J44.9 Chronic obstructive pulmonary disease, unspecified; G43.909 Migraine, unspecified, not intractable, without status migrainosus; F41.9 Anxiety disorder, unspecified; F90.9 Attention-deficit hyperactivity disorder, unspecified type; F43.10 Post-traumatic stress disorder, unspecified; Z86.14 Personal history of Methicillin resistant Staphylococcus aureus infection; Z81.8 Family history of other mental and behavioral disorders; Z87.891 Personal history of nicotine dependence; G47.00 Insomnia, unspecified; W19.XXXD Unspecified fall, subsequent encounter
CPT/HCPCS: 36415; 80053; 80061; 80307; 80320; 80329; 81003; 81015; 83036; 84443; 85025; 90853; 99222; 99231; 99232; 99238; A9270-GY; G0480

== ENCOUNTER 2017-08-08 15:39 | Inpatient (IN) | payer OTHER ==
[2017-08-08] MEDS ORDERED: DOXYcycline CAP(*) 100 MG PO ONE (15:52)
[2017-08-08 17:41] LABS: EGFR Non-African American 83.2 (>60)
[2017-08-08 17:56] LABS: Urine Appearance Clear; Urine Blood Negative (Negative); Urine Color Yellow; Urine Ketones Negative (Negative); Urine Protein Negative (Negative); Urine Red Blood Cell Absent (Absent); Urine Specific Gravity 1.013 (1.010-1.030); Urine Urobilinogen Negative (Negative); Urine White Blood Cell Trace(0-5/hpf) (Absent)
[2017-08-08 18:22] LABS: ABS Basophils 0 10^3/ul (0-0.2); ABS Eosinophils 0.1 10^3/ul (0-0.6); ABS Lymphocytes 1.6 10^3/ul (1.0-4.8); ABS Monocytes 0.8 10^3/ul (0-0.8); ABS Neutrophils 6.3 10^3/ul (1.5-7.7); ABS Nucleated RBC 0 10^3/ul; Eosinophil % 0.9 % (0-6); Hematocrit 41 % (42-52); Hemoglobin 13.7 g/dl (14.0-18.0); Lymphocyte % 17.8 % (25-47); Mean Corpuscular HGB Conc 33 g/dl (31-36); Mean Corpuscular Hemoglobin 29 pg (27-31); Mean Corpuscular Volume 86 fL (80-94); Mean Platelet Volume 8.8 um3 (7.4-10.4); Nucleated Red Blood Cells % 0.1; Platelet Count 234 10^3/ul (150-450); Red Blood Count 4.77 10^6/ul (4.0-5.4); Red Cell Distribution Width 14 % (10.5-15); White Blood Count 8.9 10^3/ul (3.5-10.8)
--- NOTE | 2017-08-08 18:44 | ED ---
Jamal Okeefe Stephanie, scribed for Christian Terry MD on 08/08/17 at 1600 . Psychiatric Complaint - HPI Summary HPI Summary: The pt is a 41 y/o M presenting to the ED with c/o mental disorientation that began about 1 week ago. The pt states he has been off his psych medications for at least 1.5 weeks and he has not been feeling good and has been abusing drugs. Symptoms include rhinorrhea and cough. The pt denies fever. Per triage note, the pt has thoughts of SI. - History Of Current Complaint Chief Complaint: EDMentalHealth Time Seen by Provider: 08/08/17 15:48 Hx Obtained From: Patient Onset/Duration: Gradual Onset, Lasting Weeks - 1.5, Still Present Timing: Constant Character: Depressed Aggravating Factor(s): Nothing Alleviating Factor(s): Nothing Related History: Positive For: Prior Psychiatric Issues Has Suicidal: Reports: Thoughts - Allergies/Home Medications Allergies/Adverse Reactions: Allergies Allergy/AdvReac Type Severity Reaction Status Date / Time MS Penicillins [Penicillins] Allergy Hives Verified 01/06/17 13:03 Home Medications: Home Medications Aripiprazole Maintena (NF) [Abilify Maintena (NF)] 400 mg IM Q21D 08/08/17 [ History Confirmed 08/08/17] Methylphenidate ER TAB* [Concerta ER TAB*] 36 mg PO BID 08/08/17 [History Confirmed 08/08/17] buPROPion TAB* [Wellbutrin TAB*] 75 mg PO DAILY 08/08/17 [History Confirmed ] PMH/Surg Hx/FS Hx/Imm Hx Endocrine/Hematology History: Reports: Hx Thyroid Disease - hypothroid, Hx Anemia Denies: Hx Anticoagulant Therapy, Hx Diabetes Cardiovascular History: Reports: Hx Hypercholesterolemia, Hx Hypertension Denies: Hx Congestive Heart Failure, Hx Pacemaker/ICD Respiratory History: Reports: Hx Chronic Obstructive Pulmonary Disease (COPD), Hx Pneumonia Denies: Hx Asthma - patient denies hx asthma History: Denies: Hx Renal Disease Musculoskeletal History: Reports: Hx Orthopedic Injury - Left Hand Fracture, Other Musculoskeletal History - Clavicle Fracture Sensory History: Reports: Hx Contacts or Glasses Denies: Hx Hearing Aid Opthamlomology History: Reports: Hx Contacts or Glasses Neurological History: Reports: Hx Migraine, Other Neuro Impairments/Disorders - Benign Tumor Removed two years ago per patient Psychiatric History: Reports: Hx Anxiety, Hx Attention Deficit Hyperactivity Disorder, Hx Depression, Hx Panic Disorder, Hx Post Traumatic Stress Disorder, Hx Inpatient Treatment, Hx Community Mental Health Tx, Hx Bipolar Disorder, Hx of Violent Episodes Against Others, Hx Substance Abuse, Other Psychiatric Issues /Disorders - BIPOLAR Denies: Hx Eating Disorder, Hx Suicide Attempt - Surgical History Surgery Procedure, Year, and Place: 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 Hx Anesthesia Reactions: Yes - age 8 ear tubes, surgery stopped for heart palpitation, unknown etiology, s Infectious Disease History: No Infectious Disease History: Reports: Hx of Known/Suspected MRSA Denies: Hx Clostridium Difficile, Hx Hepatitis, Hx Human Immunodeficiency Virus (HIV), Hx Shingles, Hx Tuberculosis, Hx Known/Suspected VRE, Hx Known/ Suspected VRSA, History Other Infectious Disease, Traveled Outside the [place] in Last 30 Days - Family History Known Family History: Positive: Other - pos: Family EToH, psychotic disorders - Social History Occupation: Unemployed Lives: Alone Alcohol Use: patient states that he is a non-drinker Hx Substance Use: Yes Substance Use Type: Reports: Cocaine, Other Substance Use Comment - Amount & Last Used: injecting cocaine Hx Tobacco Use: Yes Smoking Status (MU): Former Smoker Type: Cigarettes Amount Used/How Often: 1 ppd Length of Time of Smoking/Using Tobacco: 9 years Have You Smoked in the Last Year: No Review of Systems Negative: Fever Positive: Nasal Discharge Positive: Cough Positive: Other - mental disorientation All Other Systems Reviewed And Are Negative: Yes Physical Exam - Summary Physical Exam Summary: General: well-appearing, no pain distress Skin: warm, color reflects adequate perfusion, dry Head: normal Eyes: EOMI, ZABRINA ENT: positive rhinorrhea Neck: supple, nontender Respiratory: Rhonchi, breath sounds present Cardiovascular: RRR Abdomen: soft, nontender Bowel: present Musculoskeletal: normal, strength/ROM intact Neurological: normal, sensory/motor intact, A&O x3 Psychological: affect/mood appropriate Triage Information Reviewed: Yes Vital Signs On Initial Exam: Initial Vitals Temp Pulse Resp BP Pulse Ox 98.5 F 96 20 143/102 98 08/08/17 15:41 08/08/17 15:41 08/08/17 15:41 08/08/17 15:41 08/08/17 15:41 Vital Signs Reviewed: Yes Diagnostics - Vital Signs Vital Signs Temp Pulse Resp BP Pulse Ox 08/08/17 15:41 98.5 F 96 20 143/102 98 - Laboratory Lab Results: Lab Results 08/08/17 08/08/17 08/08/17 Range/Units 17:10 17:30 17:30 WBC (3.5-10.8) 10^3/ul RBC (4.0-5.4) 10^6/ul Hgb (14.0-18.0) g/dl Hct (42-52) % MCV (80-94) fL MCH (27-31) pg MCHC (31-36) g/dl RDW (10.5-15) % Plt Count (150-450) 10^3/ul MPV (7.4-10.4) um3 Neut % (Auto) (38-83) % Lymph % (Auto) (25-47) % [place] % (Auto) (0-7) % Eos % (Auto) (0-6) % Baso % (Auto) (0-2) % Absolute Neuts (auto) (1.5-7.7) 10^3/ul Absolute Lymphs (auto) (1.0-4.8) 10^3/ul Absolute Monos (auto) (0-0.8) 10^3/ul Absolute Eos (auto) (0-0.6) 10^3/ul Absolute Basos (auto) (0-0.2) 10^3/ul Absolute Nucleated RBC 10^3/ul Nucleated RBC % Sodium 137 L (139-145) mmol/L Potassium 4.2 (3.5-5.0) mmol/L Chloride 103 (101-111) mmol/L Carbon Dioxide 25 (22-32) mmol/L Anion Gap 9 (2-11) mmol/L BUN 9 (6-24) mg/dL Creatinine 1.00 (0.67-1.17) mg/dL Est GFR ( Amer) 107.0 (>60) Est GFR (Non-Af Amer) 83.2 (>60) BUN/Creatinine Ratio 9.0 (8-20) Glucose 69 L (70-100) mg/dL Calcium 9.4 (8.6-10.3) mg/dL Total Bilirubin 0.40 (0.2-1.0) mg/dL AST 26 (13-39) U/L ALT 31 (7-52) U/L Alkaline Phosphatase 77 (34-104) U/L Total Protein 7.3 (6.4-8.9) g/dL Albumin 4.2 (3.2-5.2) g/dL Globulin 3.1 (2-4) g/dL Albumin/Globulin Ratio 1.4 (1-3) TSH 3.71 (0.34-5.60) mcIU/mL Urine Color Yellow Urine Appearance Clear Urine pH 5.0 (5-9) Ur Specific [place] 1.013 (1.010-1.030) Urine Protein Negative (Negative) Urine Ketones Negative (Negative) Urine Blood Negative (Negative) Urine Nitrate Negative (Negative) Urine Bilirubin Negative (Negative) Urine Urobilinogen Negative (Negative) Ur Leukocyte Esterase Trace A (Negative) Urine WBC (Auto) Trace(0-5/hpf) (Absent) Urine RBC (Auto) Absent (Absent) Urine Bacteria Absent (Absent) Hyaline Casts Present A (Absent) Urine Glucose Negative (Negative) Salicylates < 2.50 (<30) mg/dL Urine Opiates Screen Presumptive positive A (None Detect) Acetaminophen < 15 mcg/mL Ur Barbiturates Screen None detected (None Detect) Ur Phencyclidine Scrn None detected (None Detect) Ur Amphetamines Screen None detected (None Detect) U Benzodiazepines Scrn None detected (None Detect) Urine Cocaine Screen Presumptive positive A (None Detect) U Cannabinoids Screen None detected (None Detect) Serum Alcohol < 10 (<10) mg/dL 08/08/17 Range/Units 18:12 WBC 8.9 (3.5-10.8) 10^3/ul RBC 4.77 (4.0-5.4) 10^6/ul Hgb 13.7 L (14.0-18.0) g/dl Hct 41 L (42-52) % MCV 86 (80-94) fL MCH 29 (27-31) pg MCHC 33 (31-36) g/dl RDW 14 (10.5-15) % Plt Count 234 (150-450) 10^3/ul MPV 8.8 (7.4-10.4) um3 Neut % (Auto) 71.4 (38-83) % Lymph % (Auto) 17.8 L (25-47) % [place] % (Auto) 9.4 H (0-7) % Eos % (Auto) 0.9 (0-6) % Baso % (Auto) 0.5 (0-2) % Absolute Neuts (auto) 6.3 (1.5-7.7) 10^3/ul Absolute Lymphs (auto) 1.6 (1.0-4.8) 10^3/ul Absolute Monos (auto) 0.8 (0-0.8) 10^3/ul Absolute Eos (auto) 0.1 (0-0.6) 10^3/ul Absolute Basos (auto) 0 (0-0.2) 10^3/ul Absolute Nucleated RBC 0 10^3/ul Nucleated RBC % 0.1 Sodium (139-145) mmol/L Potassium (3.5-5.0) mmol/L Chloride (101-111) mmol/L Carbon Dioxide (22-32) mmol/L Anion Gap (2-11) mmol/L BUN (6-24) mg/dL Creatinine (0.67-1.17) mg/dL Est GFR ( Amer) (>60) Est GFR (Non-Af Amer) (>60) BUN/Creatinine Ratio (8-20) Glucose (70-100) mg/dL Calcium (8.6-10.3) mg/dL Total Bilirubin (0.2-1.0) mg/dL AST (13-39) U/L ALT (7-52) U/L Alkaline Phosphatase (34-104) U/L Total Protein (6.4-8.9) g/dL Albumin (3.2-5.2) g/dL Globulin (2-4) g/dL Albumin/Globulin Ratio (1-3) TSH (0.34-5.60) mcIU/mL Urine Color Urine Appearance Urine pH (5-9) Ur Specific [place] (1.010-1.030) Urine Protein (Negative) Urine Ketones (Negative) Urine Blood (Negative) Urine Nitrate (Negative) Urine Bilirubin (Negative) Urine Urobilinogen (Negative) Ur Leukocyte Esterase (Negative) Urine WBC (Auto) (Absent) Urine RBC (Auto) (Absent) Urine Bacteria (Absent) Hyaline Casts (Absent) Urine Glucose (Negative) Salicylates (<30) mg/dL Urine Opiates Screen (None Detect) Acetaminophen mcg/mL Ur Barbiturates Screen (None Detect) Ur Phencyclidine Scrn (None Detect) Ur Amphetamines Screen (None Detect) U Benzodiazepines Scrn (None Detect) Urine Cocaine Screen (None Detect) U Cannabinoids Screen (None Detect) Serum Alcohol (<10) mg/dL Result Diagrams: 08/08/17 18:12 08/08/17 17:10 Lab Statement: Any lab studies that have been ordered have been reviewed, and results considered in the medical decision making process. Course/Dx - Course Course Of Treatment: BP noted and advised to follow up with PCP. FOR THE BRONCHITIS, RX DOXYCYCLINE SENT TO [facility]. IF PATIENT GETS ADMITTED, I RECOMMEND DOXYCYCLINE 100MG PO BID. - Differential Dx/Clinical Impression Provider Diagnosis: HTN (hypertension), Mental health problem, Bronchitis Discharge - Sign-Out/Discharge Documenting (check all that apply): Sign-Out Patient Signing out patient TO: Jaciel Sidhu - Pending MHE. - Discharge Plan Condition: Stable Prescriptions: DOXYcycline CAP(*) [DOXYcycline 100MG CAP(*)] 100 mg PO BID #19 cap Patient Education Materials: Acute Bronchitis (ED) Referrals: Darin Montano MD [Primary Care Provider] - Additional Instructions: Your blood pressure was elevated during todays visit; please follow up with your primary care provider within a week for further evaluation. - Billing Disposition and Condition Condition: STABLE The documentation as recorded by the Jamal gonzalez Stephanie accurately reflects the service I personally performed and the decisions made by me, Christian Terry MD.
--- NOTE | 2017-08-08 21:53 | ED ---
IKhurram Julia, scribed for Brielle Capone MD on 08/08/17 at 1907 . Progress - Progress Note Progress Note: Patient is signed out from Dr. Terry, awaiting mental health evaluation. Pt resting comfortably, no complaints or issues. Mental health provider states evaluation cannot be completed for another hour and a half. Pt will be signed out to Dr. Sidhu. Course/Dx - Course Course Of Treatment: BP noted and advised to follow up with PCP. FOR THE BRONCHITIS, RX DOXYCYCLINE SENT TO [facility]. IF PATIENT GETS ADMITTED, I RECOMMEND DOXYCYCLINE 100MG PO BID. - Diagnoses Provider Diagnoses: HTN (hypertension), Mental health problem, Bronchitis Discharge - Sign-Out/Discharge Documenting (check all that apply): Sign-Out Patient Signing out patient TO: Jaciel Sidhu - Discharge Plan Condition: Stable Prescriptions: DOXYcycline CAP(*) [DOXYcycline 100MG CAP(*)] 100 mg PO BID #19 cap Patient Education Materials: Acute Bronchitis (ED) Referrals: Darin Montano MD [Primary Care Provider] - Additional Instructions: Your blood pressure was elevated during todays visit; please follow up with your primary care provider within a week for further evaluation. - Billing Disposition and Condition Condition: STABLE The documentation as recorded by the alanibeKhurram Julia accurately reflects the service I personally performed and the decisions made by me, Brielle Capone MD.
[2017-08-09] MEDS ORDERED: Acetaminophen TAB* 325 MG PO ONE (03:49)
[2017-08-09] MEDS ORDERED: DOXYcycline CAP(*) 100 MG ONE (09:00)
[2017-08-09] MEDS ORDERED: DOXYcycline CAP(*) 100 MG PO SCH (09:00)
--- NOTE | 2017-08-09 09:04 | PN ---
ED Flex Patient Progress Note Subjective: This is a 41 year-old M who is pending admission to [facility] secondary to ____"mental disorientation" and "SI" . Pt offers no complaints at this time - just wants to sleep. When asked, he reports he currently has both fever and chills. He was dx'd w/ bronchitis yesterday and doxycycline regimen initiated. Denies MCCAIN, chest pain, SOB, wheezing, ab pain, N/V/D, or pain anywhere. Objective: Vitals: Most recent vital signs documented below (afebrile, pulse ox adequate, NSR, BP WNL). Pt is sleeping in bed w/ blankets over his head - does not want to be bothered for PE or vitals but eventually and reluctantly complies. Alert and oriented x3. Heart: S1/S2, rrr Lungs: BREATHING EASILY, SCANT rhonchi throughout and wheezing in Lt side of chest - pulse ox is 94% on RA at lowest - no rhales. Pt refuses neb breathing tx or albuterol inhaler AB: + BS, soft Integ: moist PSYCH: irritable Assessment: 1) Mental health d/o, SI 2) Bronchitis 3) Substance abuse Plan: 1) Pending psychiatric or medical consultation to observe / transfer / admit / discharge will follow up daily . 2) Will continue doxycycline 100mg BID x 10 days. Will order albuterol HFA if pt decides he'd like to try this. Will continue to monitor vitals for fever, hypoxia, tachycardia 3) proc tech verifying meds at [facility] - will provide methadone if confirmed as he is requesting this now - feels he's withdrawing from methadone at present. Vital Signs Temp Pulse Resp BP Pulse Ox 97.3 F 80 18 111/64 98 08/08/17 21:05 08/08/17 21:05 08/08/17 21:05 08/08/17 21:05 08/08/17 21:05 Lab Results - Entire Visit 08/08/17 08/08/17 08/08/17 18:12 17:30 17:30 WBC 8.9 RBC 4.77 Hgb 13.7 L Hct 41 L MCV 86 MCH 29 MCHC 33 RDW 14 Plt Count 234 MPV 8.8 Neut % (Auto) 71.4 Lymph % (Auto) 17.8 L [place] % (Auto) 9.4 H Eos % (Auto) 0.9 Baso % (Auto) 0.5 Absolute Neuts (auto) 6.3 Absolute Lymphs (auto) 1.6 Absolute Monos (auto) 0.8 Absolute Eos (auto) 0.1 Absolute Basos (auto) 0 Absolute Nucleated RBC 0 Nucleated RBC % 0.1 Sodium Potassium Chloride Carbon Dioxide Anion Gap BUN Creatinine Est GFR ( Amer) Est GFR (Non-Af Amer) BUN/Creatinine Ratio Glucose Calcium Total Bilirubin AST ALT Alkaline Phosphatase Total Protein Albumin Globulin Albumin/Globulin Ratio TSH Urine Color Yellow Urine Appearance Clear Urine pH 5.0 Ur Specific [place] 1.013 Urine Protein Negative Urine Ketones Negative Urine Blood Negative Urine Nitrate Negative Urine Bilirubin Negative Urine Urobilinogen Negative Ur Leukocyte Esterase Trace A Urine WBC (Auto) Trace(0-5/hpf) Urine RBC (Auto) Absent Urine Bacteria Absent Hyaline Casts Present A Urine Glucose Negative Salicylates Urine Opiates Screen Presumptive positive A Acetaminophen Ur Barbiturates Screen None detected Ur Phencyclidine Scrn None detected Ur Amphetamines Screen None detected U Benzodiazepines Scrn None detected Urine Cocaine Screen Presumptive positive A U Cannabinoids Screen None detected Serum Alcohol 08/08/17 17:10 WBC RBC Hgb Hct MCV MCH MCHC RDW Plt Count MPV Neut % (Auto) Lymph % (Auto) [place] % (Auto) Eos % (Auto) Baso % (Auto) Absolute Neuts (auto) Absolute Lymphs (auto) Absolute Monos (auto) Absolute Eos (auto) Absolute Basos (auto) Absolute Nucleated RBC Nucleated RBC % Sodium 137 L Potassium 4.2 Chloride 103 Carbon Dioxide 25 Anion Gap 9 BUN 9 Creatinine 1.00 Est GFR ( Amer) 107.0 Est GFR (Non-Af Amer) 83.2 BUN/Creatinine Ratio 9.0 Glucose 69 L Calcium 9.4 Total Bilirubin 0.40 AST 26 ALT 31 Alkaline Phosphatase 77 Total Protein 7.3 Albumin 4.2 Globulin 3.1 Albumin/Globulin Ratio 1.4 TSH 3.71 Urine Color Urine Appearance Urine pH Ur Specific [place] Urine Protein Urine Ketones Urine Blood Urine Nitrate Urine Bilirubin Urine Urobilinogen Ur Leukocyte Esterase Urine WBC (Auto) Urine RBC (Auto) Urine Bacteria Hyaline Casts Urine Glucose Salicylates < 2.50 Urine Opiates Screen Acetaminophen < 15 Ur Barbiturates Screen Ur Phencyclidine Scrn Ur Amphetamines Screen U Benzodiazepines Scrn Urine Cocaine Screen U Cannabinoids Screen Serum Alcohol < 10
[2017-08-09] MEDS ORDERED: Methadone TAB* 10 MG PO ONE (11:44)
[2017-08-09] MEDS ORDERED: Al Hydrox/Mg Hydrox/Simet LIQ* 30 ML UDC PO PRN (14:13)
[2017-08-09] MEDS: Albuterol HFA INHALER* 8 gm MDI INH SCH ×2 (14:35→21:42)
[2017-08-09] MEDS ORDERED: Mouth Piece, Nicotine* 1 EACH CARTRIDGE INH PRN (20:19)
--- NOTE | 2017-08-09 21:13 | ADMNOTE ---
History - Objective HPI: Psychiatric Attending History and Physical NAME:Eron Woodson : 1975 AGE: 41 PROVIDER: Davon Walter DATE OF ADMISSION: 08/09/2017 JUSTIFICATION FOR ADMISSION: patient requires psychiatric inpatient level of care due to severe depression and suicidal ideation in the context of polysubstance abuse CHIEF COMPLAINT: "I've been bingeing on cocaine and my head is confused. I havent slept in 3 days and I feel like I might hurt myself" HISTORY OF THE PRESENT ILLNESS: 41 yo single male with history of SAD bipolar type (onset late ), opioid dependence on agonist therapy X 2 years. Cocaine and Cannabis use disorders as well. ADHD. patient sees psychiatric providers at [facility] where he receives ABilify Mantenna 400 mg q21 days, wellbutrin 75 mg daily and Concerta 36 mg BID. Has not used his oral medications in over a month as his doctor would not prescribe them as he was abusing cocaine. patient has been bingeing daily on cocaine for past couple of weeks. FAther brought him to ED. pateint reports being disoriented and confrused for past week, sleep deprived, depressed and having suicidal ideation. He was admitted n voluntary basis PAST PSYCHIATRIC HISTORY: multiple past psychiatric hospitalizations for depression, suicidal ideation, substance abuse. multiple rehabiliation stays and detox stays. has been taking methadone for past two years. currently on 120 mg daily. has not missed methadone recently. past history of suicidal ideation and multiple suicide attempts but would not specify further. "dont want to talk about it" reports history of eating disorder, panic attacks and PTSD SUBSTANCE ABUSE HISTORY: heroine use for many years. currently on methadone x 2 years denies any opiate usage in past two years other than methadone cannabis use since teens not daily but intermittent usage cocaine on and off meany years. binge use for past 2 weeks (injects) alcohol use sporadic but not daily Tobacco1 PPD x 9 years. quit 1 year ago. still uses nicorette gum daily PAST MEDICAL HISTORY: hypothryoidism, anemia, hypercholesterolemia, hypertension, COPD, history of pneumonia, history of left hand fracture, history of clavicle fracture, wears contacts and glasses, history of migraines, s/p excision of benign brain tumor several years ago - discovered by xray of skull after sustaining concussion history of MRSA CURRENT MEDICATIONS: Bupropion 75 mg qam last used 6 weeks ago Concerta 36 mg BID last used 6 weeks ago Jaja Mantenna 400 mg IM Q 21 days ALLERGIES: Penicillin FAMILY PSYCHIATRIC HISTORY: alcoholism and psychotic disorders FAMILY/PSYCHOSOCIAL HISTORY: patient lives alone in subsidized housing. He receives pubic assistance. his parents are . he has two step brothers and one half brother. denies current legal probelms. denies history of sexual or physical trauma. identifies as heterosexual but not sexually active in many years. REVIEW OF SYSTEMS: significant for feeling very tired due to sleep deprivation. denies headache, dizziness, blurry vision, tremor, nausea, vomiting, abdom pain, rash, pruritus, sob, chest pain, palpitationis, cough, dyspnea, back pain, fever, frequency, dysuria, sore throat, ear pain, nasal discharge, constipation or diarrhea, excessive thirst muscle weakness, muscle rigidity, melena, hematochezia PHYSICAL EXAMINATION: Appearance: Well appearing, lethargic but remained alert during interview, obese , poor hygiene Skin: warm, dry, reflects adequate perfusion, No evidence of self injury Head/face: normal Eyes: EOMI, CESAR ENT: no nasal discharge, TM's non injected, pharynx without exudate or injection , no tonsillar hypertrophy, mucous membranes moist. no evidence of oral lesions Neck: supple, non-tender, no cervical or submandibular adenopathy, no bruits Respiratory: CTA bilaterally without expiratory wheezing, no rhonchi Cardiovascular: RRR normal s1 and s2. radial, brachoradialis, dorsalis pedis pulses symetric and equal bilaterally Abdomen: non-tender, soft, bowel sound present in all quadrants, no HSM, no palpable masses Musculoskeletal: normal, strength and equal bilaterally in all four extremities/ROM intact Neuro: normal, sensory motor intact, fine motor tremor upper extremity MENTAL STATUS EXAMINATION: I woke patient up to complete interview. He was groggy initially but then became fully alert. He was fairly related. He appeared inconvenienced by the interview but was not irritable and was polite. no evidence of psychomotor agitation or retardation. poor eye contact. mildly restless. mood: dysphoric affect: constricted, flat, mild blunting. Thought process was goal directed and organized. no evidence of tangentiality, FOI, racing thoughts, no illogic or irrelevant constructs. Thought content: reports that he has been using cocaine heavily in past two weeks and not sleeping causing him to become increasingly confused and disoriented in past week. off meds he feels increasingly depressed, unmotivated, restless, hypervigilant, anxious and increasingly hopeless and despondent with recent onset of daily SI. reports onset of paranoia and auditory hallucinations in his mid to late 20's. no evidence of delusionis. denies AH and VH at present time. denies active SI\\. denies intent or plan to harm self at present time. feels safe in hospital no HI. past history of aggression but would not elaborate. past history of suicide attempt but would not elaborate. Alert. knew day of week and month and y ear but not date. oriented to place and person as well. attention, memroy concentration not tested. no language impairment, insight and judgment appear intact LABORATORY DATA: Laboratory Results - last 24 hr 08/09/17 11:37 Influenza A (Rapid) Negative Influenza B (Rapid) Negative Laboratory Last Values WBC 8.9 10^3/ul (3.5-10.8) 08/08/17 18:12 RBC 4.77 10^6/ul (4.0-5.4) 08/08/17 18:12 Hgb 13.7 g/dl (14.0-18.0) L 08/08/17 18:12 Hct 41 % (42-52) L 08/08/17 18:12 MCV 86 fL (80-94) 08/08/17 18:12 MCH 29 pg (27-31) 08/08/17 18:12 MCHC 33 g/dl (31-36) 08/08/17 18:12 RDW 14 % (10.5-15) 08/08/17 18:12 Plt Count 234 10^3/ul (150-450) 08/08/17 18:12 MPV 8.8 um3 (7.4-10.4) 08/08/17 18:12 Neut % (Auto) 71.4 % (38-83) 08/08/17 18:12 Lymph % (Auto) 17.8 % (25-47) L 08/08/17 18:12 [place] % (Auto) 9.4 % (0-7) H 08/08/17 18:12 Eos % (Auto) 0.9 % (0-6) 08/08/17 18:12 Baso % (Auto) 0.5 % (0-2) 08/08/17 18:12 Absolute Neuts (auto) 6.3 10^3/ul (1.5-7.7) 08/08/17 18:12 Absolute Lymphs (auto) 1.6 10^3/ul (1.0-4.8) 08/08/17 18:12 Absolute Monos (auto) 0.8 10^3/ul (0-0.8) 08/08/17 18:12 Absolute Eos (auto) 0.1 10^3/ul (0-0.6) 08/08/17 18:12 Absolute Basos (auto) 0 10^3/ul (0-0.2) 08/08/17 18:12 Absolute Nucleated RBC 0 10^3/ul 08/08/17 18:12 Nucleated RBC % 0.1 08/08/17 18:12 Sodium 137 mmol/L (139-145) L 08/08/17 17:10 Potassium 4.2 mmol/L (3.5-5.0) 08/08/17 17:10 Chloride 103 mmol/L (101-111) 08/08/17 17:10 Carbon Dioxide 25 mmol/L (22-32) 08/08/17 17:10 Anion Gap 9 mmol/L (2-11) 08/08/17 17:10 BUN 9 mg/dL (6-24) 08/08/17 17:10 Creatinine 1.00 mg/dL (0.67-1.17) 08/08/17 17:10 Est GFR ( Amer) 107.0 (>60) 08/08/17 17:10 Est GFR (Non-Af Amer) 83.2 (>60) 08/08/17 17:10 BUN/Creatinine Ratio 9.0 (8-20) 08/08/17 17:10 Glucose 69 mg/dL (70-100) L 08/08/17 17:10 Calcium 9.4 mg/dL (8.6-10.3) 08/08/17 17:10 Total Bilirubin 0.40 mg/dL (0.2-1.0) 08/08/17 17:10 AST 26 U/L (13-39) 08/08/17 17:10 ALT 31 U/L (7-52) 08/08/17 17:10 Alkaline Phosphatase 77 U/L (34-104) 08/08/17 17:10 Total Protein 7.3 g/dL (6.4-8.9) 08/08/17 17:10 Albumin 4.2 g/dL (3.2-5.2) 08/08/17 17:10 Globulin 3.1 g/dL (2-4) 08/08/17 17:10 Albumin/Globulin Ratio 1.4 (1-3) 08/08/17 17:10 TSH 3.71 mcIU/mL (0.34-5.60) 08/08/17 17:10 Urine Color Yellow 08/08/17 17:30 Urine Appearance Clear 08/08/17 17:30 Urine pH 5.0 (5-9) 08/08/17 17:30 Ur Specific [place] 1.013 (1.010-1.030) 08/08/17 17:30 Urine Protein Negative (Negative) 08/08/17 17:30 Urine Ketones Negative (Negative) 08/08/17 17:30 Urine Blood Negative (Negative) 08/08/17 17:30 Urine Nitrate Negative (Negative) 08/08/17 17:30 Urine Bilirubin Negative (Negative) 08/08/17 17:30 Urine Urobilinogen Negative (Negative) 08/08/17 17:30 Ur Leukocyte Esterase Trace (Negative) A 08/08/17 17:30 Urine WBC (Auto) Trace(0-5/hpf) (Absent) 08/08/17 17:30 Urine RBC (Auto) Absent (Absent) 08/08/17 17:30 Urine Bacteria Absent (Absent) 08/08/17 17:30 Hyaline Casts Present (Absent) A 08/08/17 17:30 Urine Glucose Negative (Negative) 08/08/17 17:30 Salicylates < 2.50 mg/dL (<30) 08/08/17 17:10 Urine Opiates Screen Presumptive positive (None Detect) A 08/08/17 17:30 Acetaminophen < 15 mcg/mL 08/08/17 17:10 Ur Barbiturates Screen None detected (None Detect) 08/08/17 17:30 Ur Phencyclidine Scrn None detected (None Detect) 08/08/17 17:30 Ur Amphetamines Screen None detected (None Detect) 08/08/17 17:30 U Benzodiazepines Scrn None detected (None Detect) 08/08/17 17:30 Urine Cocaine Screen Presumptive positive (None Detect) A 08/08/17 17:30 U Cannabinoids Screen None detected (None Detect) 08/08/17 17:30 Serum Alcohol < 10 mg/dL (<10) 08/08/17 17:10 Influenza A (Rapid) Negative (Negative) 08/09/17 11:37 Influenza B (Rapid) Negative (Negative) 08/09/17 11:37 IMPRESSION: 41 yo single male with history of SAD bipolar type, ADHD, Opioid, Cocaine, and Cannabis Use Disorders on methadone maintenance for past 2 years. patient has been on cocaine binge x 2 weeks and presents to hospital depressed and suicidal. DIAGNOSES: Schizoaffective Disorder Bipolar type ADHD by history Opioid Use Disorder on agonist therapy Cocaine abuse with Cocaine Induced Mood Disorder Cannabis Use Disorder PLAN: admit to [facility] on Q 15 min as voluntary patient Milieu, individual and group therapy social work evaluation start Wellbutrin SR 100 mg QAM will not restart concerta at this time will need to check with [facility] to find out date of last Abilify Mantenna injection until then, will restart Abilify 5 mg X 1 d then 10 mg x 1 d then 15 mg QAM thereafter. Methadone 120 mg QAM has already been verified by pharmacy. Doxycycline 100 mg BID for COPD/rhonchi per hospitalist. nicorette gum and nicotine inhaler Exam Insight and Judgement: Fair Plan - Treatment Plan Medications: Current Medications Acetaminophen (Tylenol Tab*) 650 mg PO Q4H PRN PRN Reason: for pain; or Temp >101 F Al Hydrox/Mg Hydrox/Simethicone (Maalox Plus*) 30 ml PO Q4H PRN PRN Reason: INDIGESTION Albuterol (Ventolin Hfa Inhaler*) 2 puff INH [id number] AWAKE [facility] Last Admin: 08/09/17 14:35 Dose: Not Given Aripiprazole (Abilify Tab*) 5 mg PO DAILY [facility] Stop: 08/10/17 09:01 Aripiprazole (Abilify Tab*) 10 mg PO DAILY [facility] Stop: 08/11/17 09:01 Aripiprazole (Abilify Tab*) 15 mg PO DAILY [facility] Bupropion HCl (Wellbutrin Sr Tab*) 100 mg PO DAILY@08 [facility] Device (Nicotine Mouth Piece*) 1 each INH .USE WITH NICOTROL PRN PRN Reason: CRAVING Doxycycline Hyclate (Vibramycin Cap(*)) 100 mg PO BID [facility] Methadone HCl (Dolophine Tab*) 120 mg PO DAILY@08 [facility] Multivitamins (Theragran Tab*) 1 tab PO DAILY [facility] Nicotine (Nicotine Inhaler*) 10 mg INH Q2H PRN PRN Reason: CRAVING Nicotine Polacrilex (Nicotine Gum*) 2 mg PO Q2H PRN PRN Reason: CRAVING
[2017-08-09] MEDS: DOXYcycline CAP(*) 100 MG PO SCH (21:42)
[2017-08-09] MEDS: Nicotine GUM* 2 MG PO PRN (23:55)
[2017-08-09] MEDS: Nicotine Inhaler* 10 MG AMP INH PRN (23:55)
[2017-08-10] MEDS: Acetaminophen TAB* 325 MG PO PRN ×2 (00:22→04:35)
[2017-08-10] MEDS: Albuterol HFA INHALER* 8 gm MDI INH SCH ×4 (02:00→19:00)
[2017-08-10] MEDS: Nicotine GUM* 2 MG PO PRN ×2 (04:37→17:31)
[2017-08-10] MEDS ORDERED: Methylphenidate ER TAB* 18 MG PO SCH (08:00)
[2017-08-10] MEDS: DOXYcycline CAP(*) 100 MG PO SCH ×2 (08:17→21:08)
[2017-08-10] MEDS: buPROPion SR TAB.SR* 100 MG PO SCH (08:17)
[2017-08-10] MEDS: Vitamin THERAPEUTIC TAB PO SCH (08:17)
[2017-08-10] MEDS: Methadone TAB* 10 MG PO SCH (08:18)
[2017-08-10] MEDS ORDERED: ARIPiprazole TAB* 5 MG PO SCH (09:00)
[2017-08-11] MEDS: Acetaminophen TAB* 325 MG PO PRN ×2 (01:40→20:56)
[2017-08-11] MEDS: Albuterol HFA INHALER* 8 gm MDI INH SCH ×4 (01:40→20:30)
[2017-08-11] MEDS: Methadone TAB* 10 MG PO SCH (07:17)
[2017-08-11] MEDS: buPROPion SR TAB.SR* 100 MG PO SCH (07:18)
[2017-08-11] MEDS: Vitamin THERAPEUTIC TAB PO SCH (07:18)
[2017-08-11] MEDS: DOXYcycline CAP(*) 100 MG PO SCH ×2 (07:19→20:55)
[2017-08-11] MEDS: Nicotine Inhaler* 10 MG AMP INH PRN ×4 (08:29→21:08)
[2017-08-11] MEDS: Nicotine GUM* 2 MG PO PRN ×4 (08:29→21:08)
[2017-08-11] MEDS ORDERED: ARIPiprazole TAB* 5 MG PO SCH (09:00)
--- NOTE | 2017-08-11 16:42 | PN ---
Subjective - Subjective Date of Service: 08/11/17 Service Type: [id number] Hosp care 15 min low complexity Subjective: Litzy was in bed and had hard time engaging in conversation. Denies any problem and wanted to be left alone. Denies SI, HI or psychosis. This morning in the milieu happy and interacting fine with peers. Objective - Appearance Appearance: Obese Dysmorphic Features: No Hygiene: Normal Grooming: Fairly Well Kept - Behavior Psychomotor Activities: Normal Exhibits Abnormal Movement: No - Attitude and Relatedness Attitude and Relatedness: Appropriate Eye Contact: Fair - Speech Quality: Unpressured Latencies: Normal Quantity: Appropriate - Mood Patient's Decription of Mood: "Fine" - Affect Observed Affect: Non-labile Affect Consistent with: Euthymia - Thought Process Patient's Thought Process: Coherent, Goal Directed Thought Content: No Passive Wish, No Suicidal Planning, No Homicidal Ideation, No Paranoid Ideation - Sensorium Experiencing Hallucinations: No, Sensorium is Clear Type of Hallucinations: Visual: No, Auditory: No, Command: No - Level of Consciousness Level of Consciousness: Alert Orientation: Yes Intact, Yes Orientated to Time, Yes Orientated to Place, Yes Orientated to Person - Impulse Control Impulse Control: Intact - Insight and Judgement Insight and Judgement: Fair - Group Participation Particating in Group Activities: Yes - Medication Management Medication Management Adherence: Yes Assessment - Assessment Merits Inpatient Hospitalization: For Stabilization, Pending Safe DC Plan Plan - Plan Treatment Plan: Name: LITZY JUSTICE Birthdate: 1975 [id number] Continued Medication Management: Continue Outpt Medication Medications: Current Medications Acetaminophen (Tylenol Tab*) 650 mg PO Q4H PRN PRN Reason: for pain; or Temp >101 F Last Admin: 08/11/17 01:40 Dose: 650 mg Al Hydrox/Mg Hydrox/Simethicone (Maalox Plus*) 30 ml PO Q4H PRN PRN Reason: INDIGESTION Albuterol (Ventolin Hfa Inhaler*) 2 puff INH [id number] AWAKE [facility] Last Admin: 08/11/17 13:07 Dose: Not Given Aripiprazole (Abilify Tab*) 15 mg PO DAILY [facility] Bupropion HCl (Wellbutrin Sr Tab*) 100 mg PO DAILY@08 [facility] Last Admin: 08/11/17 07:18 Dose: 100 mg Device (Nicotine Mouth Piece*) 1 each INH .USE WITH NICOTROL PRN PRN Reason: CRAVING Last Admin: 08/09/17 23:55 Dose: 1 each Doxycycline Hyclate (Vibramycin Cap(*)) 100 mg PO BID [facility] Last Admin: 08/11/17 07:19 Dose: 100 mg Methadone HCl (Dolophine Tab*) 120 mg PO DAILY@08 [facility] Last Admin: 08/11/17 07:17 Dose: 120 mg Multivitamins (Theragran Tab*) 1 tab PO DAILY [facility] Last Admin: 08/11/17 07:18 Dose: 1 tab Nicotine (Nicotine Inhaler*) 10 mg INH Q2H PRN PRN Reason: CRAVING Last Admin: 08/11/17 11:38 Dose: 10 mg Nicotine Polacrilex (Nicotine Gum*) 2 mg PO Q2H PRN PRN Reason: CRAVING Last Admin: 08/11/17 11:38 Dose: 2 mg - Discharge Plan Discharge Plan: Drug/Alcohol Rehab
[2017-08-12] MEDS: Albuterol HFA INHALER* 8 gm MDI INH SCH ×3 (01:00→12:10)
[2017-08-12 08:13] VITALS: BP 158/84
[2017-08-12] MEDS: Methadone TAB* 10 MG PO SCH (08:17)
[2017-08-12] MEDS: DOXYcycline CAP(*) 100 MG PO SCH (08:20)
[2017-08-12] MEDS: Vitamin THERAPEUTIC TAB PO SCH (08:21)
[2017-08-12] MEDS: buPROPion SR TAB.SR* 100 MG PO SCH (08:21)
[2017-08-12] MEDS ORDERED: ARIPiprazole TAB* 15 MG PO SCH (09:00)
[2017-08-12] MEDS: Nicotine Inhaler* 10 MG AMP INH PRN (09:15)
[2017-08-12] MEDS: Nicotine GUM* 2 MG PO PRN (09:15)
--- NOTE | 2017-08-12 10:08 | PN ---
Plan - Plan Treatment Plan: Name: LITZY JUSTICE Birthdate: 1975 [id number] Medications: Current Medications Acetaminophen (Tylenol Tab*) 650 mg PO Q4H PRN PRN Reason: for pain; or Temp >101 F Last Admin: 08/11/17 20:56 Dose: 650 mg Al Hydrox/Mg Hydrox/Simethicone (Maalox Plus*) 30 ml PO Q4H PRN PRN Reason: INDIGESTION Albuterol (Ventolin Hfa Inhaler*) 2 puff INH [id number] AWAKE [facility] Last Admin: 08/12/17 08:14 Dose: Not Given Aripiprazole (Abilify Tab*) 15 mg PO DAILY [facility] Last Admin: 08/12/17 08:22 Dose: 15 mg Bupropion HCl (Wellbutrin Sr Tab*) 100 mg PO DAILY@08 [facility] Last Admin: 08/12/17 08:21 Dose: 100 mg Device (Nicotine Mouth Piece*) 1 each INH .USE WITH NICOTROL PRN PRN Reason: CRAVING Last Admin: 08/09/17 23:55 Dose: 1 each Doxycycline Hyclate (Vibramycin Cap(*)) 100 mg PO BID [facility] Last Admin: 08/12/17 08:20 Dose: 100 mg Methadone HCl (Dolophine Tab*) 120 mg PO DAILY@08 [facility] Last Admin: 08/12/17 08:17 Dose: 120 mg Multivitamins (Theragran Tab*) 1 tab PO DAILY [facility] Last Admin: 08/12/17 08:21 Dose: 1 tab Nicotine (Nicotine Inhaler*) 10 mg INH Q2H PRN PRN Reason: CRAVING Last Admin: 08/12/17 09:15 Dose: 10 mg Nicotine Polacrilex (Nicotine Gum*) 2 mg PO Q2H PRN PRN Reason: CRAVING Last Admin: 08/12/17 09:15 Dose: 2 mg
--- NOTE | 2017-08-12 12:36 | DS ---
Subjective - Subjective Subjective: DISCHARGE SUMMARY PATIENT: Davon Walter : 1975 AGE: 41 PROVIDER: Davon Walter DATE OF ADMISSION: 08/09/2017 DATE OF DISCHARGE: 08/12/2017 DISCHARGE DIAGNOSES: Schizoaffective Disorder Bipolar type ADHD by history Opioid Use Disorder on agonist therapy Cocaine abuse with Cocaine Induced Mood Disorder Cannabis Use Disorder CONDITION AT THE TIME OF DISCHARGE: stable and improved MENTAL STATUS EXAM AT DISCHARGE: Patient mood and affect were brighter and improved. He reported he felt much better rested and was no lolnger sleep deprived or suffering with insomnia. Patient related that he was glad he had sought help. he described improved clarity of thinking from stopping the cocaine abuse. Suicidal ideation had completely remitted. He denied any psychotic symptoms. He reported that he felt ready for discharge and had clear goal to return to methadone clinic and to wait for a bed to open up at [facility] drug rehab program so he could get help for his cocaine problem. DISCHARGE INSTRUCTIONS: A.MEDICATIONS: B.DIET: C.ACTIVITIES: TOLERATED NICOTINE REPLACEMENT THERAPY WAS PRESCRIBED FOR PATIENT HE WAS ALSO GIVEN THE PHONE NUMBER FOR THE [place] [facility] QUITLINE WHICH IS [phone] THERE ARE NO LABORATORY OR DIAGNOSTIC STUDIES PENDING AT THE TIME OF DISCHARGE. D.FOLLOW UP CARE: [facility] Outpatient Substance abuse. patient should go daily beginning day after discharge to Methadone maintenance program. f/u with Dr. Woody at [facility] on 06/17/2017 at 2:30 pm f/u with Therapist Claudia 06/23/2017 at 1:00 PM f/u with PCP for borderline high thyroid function tests and hypertension. patient to call and schedule appointment. E.SUBSTANCE ABUSE FOLLOWUP: patient is on waiting list to be admitted to [facility] drug treatment program f/u with methadone clinic daily until [facility] bed becomes available. ATTENDING PSYCHIATRIST HOSPITAL COURSE: PART A. JUSTIFICATION FOR ADMISSION: patient requires psychiatric inpatient level of care due to severe depression and suicidal ideation in the context of polysubstance abuse CHIEF COMPLAINT: "I've been bingeing on cocaine and my head is confused. I havent slept in 3 days and I feel like I might hurt myself" HISTORY OF THE PRESENT ILLNESS: 41 yo single male with history of SAD bipolar type (onset late 20's), opioid dependence on agonist therapy X 2 years. Cocaine and Cannabis use disorders as well. ADHD. patient sees psychiatric providers at [facility] where he receives ABilify Mantenna 400 mg q21 days, wellbutrin 75 mg daily and Concerta 36 mg BID. Has not used his oral medications in over a month as his doctor would not prescribe them as he was abusing cocaine. patient has been bingeing daily on cocaine for past couple of weeks. FAther brought him to ED. pateint reports being disoriented and confrused for past week, sleep deprived, depressed and having suicidal ideation. He was admitted n voluntary basis PAST PSYCHIATRIC HISTORY: multiple past psychiatric hospitalizations for depression, suicidal ideation, substance abuse. multiple rehabiliation stays and detox stays. has been taking methadone for past two years. currently on 120 mg daily. has not missed methadone recently. past history of suicidal ideation and multiple suicide attempts but would not specify further. "dont want to talk about it" reports history of eating disorder, panic attacks and PTSD SUBSTANCE ABUSE HISTORY: heroine use for many years. currently on methadone x 2 years denies any opiate usage in past two years other than methadone cannabis use since teens not daily but intermittent usage cocaine on and off meany years. binge use for past 2 weeks (injects) alcohol use sporadic but not daily Tobacco1 PPD x 9 years. quit 1 year ago. still uses nicorette gum daily PAST MEDICAL HISTORY: hypothryoidism, anemia, hypercholesterolemia, hypertension, COPD, history of pneumonia, history of left hand fracture, history of clavicle fracture, wears contacts and glasses, history of migraines, s/p excision of benign brain tumor several years ago - discovered by xray of skull after sustaining concussion history of MRSA CURRENT MEDICATIONS: Bupropion 75 mg qam last used 6 weeks ago Concerta 36 mg BID last used 6 weeks ago Abilify Mantenna 400 mg IM Q 21 days ALLERGIES: Penicillin FAMILY PSYCHIATRIC HISTORY: alcoholism and psychotic disorders FAMILY/PSYCHOSOCIAL HISTORY: patient lives alone in subsidized housing. He receives pubic assistance. his parents are . he has two step brothers and one half brother. denies current legal probelms. denies history of sexual or physical trauma. identifies as heterosexual but not sexually active in many years. REVIEW OF SYSTEMS: significant for feeling very tired due to sleep deprivation. denies headache, dizziness, blurry vision, tremor, nausea, vomiting, abdom pain, rash, pruritus, sob, chest pain, palpitationis, cough, dyspnea, back pain, fever, frequency, dysuria, sore throat, ear pain, nasal discharge, constipation or diarrhea, excessive thirst muscle weakness, muscle rigidity, melena, hematochezia PHYSICAL EXAMINATION: Appearance: Well appearing, lethargic but remained alert during interview, obese , poor hygiene Skin: warm, dry, reflects adequate perfusion, No evidence of self injury Head/face: normal Eyes: EOMI, CESAR ENT: no nasal discharge, TM's non injected, pharynx without exudate or injection , no tonsillar hypertrophy, mucous membranes moist. no evidence of oral lesions Neck: supple, non-tender, no cervical or submandibular adenopathy, no bruits Respiratory: CTA bilaterally without expiratory wheezing, no rhonchi Cardiovascular: RRR normal s1 and s2. radial, brachoradialis, dorsalis pedis pulses symetric and equal bilaterally Abdomen: non-tender, soft, bowel sound present in all quadrants, no HSM, no palpable masses Musculoskeletal: normal, strength and equal bilaterally in all four extremities/ROM intact Neuro: normal, sensory motor intact, fine motor tremor upper extremity MENTAL STATUS EXAMINATION: I woke patient up to complete interview. He was groggy initially but then became fully alert. He was fairly related. He appeared inconvenienced by the interview but was not irritable and was polite. no evidence of psychomotor agitation or retardation. poor eye contact. mildly restless. mood: dysphoric affect: constricted, flat, mild blunting. Thought process was goal directed and organized. no evidence of tangentiality, FOI, racing thoughts, no illogic or irrelevant constructs. Thought content: reports that he has been using cocaine heavily in past two weeks and not sleeping causing him to become increasingly confused and disoriented in past week. off meds he feels increasingly depressed, unmotivated, restless, hypervigilant, anxious and increasingly hopeless and despondent with recent onset of daily SI. reports onset of paranoia and auditory hallucinations in his mid to late 20's. no evidence of delusionis. denies AH and VH at present time. denies active SI\\. denies intent or plan to harm self at present time. feels safe in hospital no HI. past history of aggression but would not elaborate. past history of suicide attempt but would not elaborate. Alert. knew day of week and month and y ear but not date. oriented to place and person as well. attention, memroy concentration not tested. no language impairment, insight and judgment appear intact HOSPITAL COURSE : PART B PSYCHIATRIC TREATMENT RENDERED: Patient was admitted to [facility] on voluntary status. He was integrated into the structured milieu and afforded individual and group therapies taught by the unit's interdisciplinary team of mental health professionals. Mental status checks and vitals signs were closely monitored by 24 hour nursing staff with the assistance of mental health technical staff. Patient was evaluated and reassessed daily by a psychiatrist which included medication adjustment in order to ameliorate target symptoms and minimize side effects of medication. Patient was also seen on a daily basis by social work case manager for therapy and to solidify optimal discharge plan. Patient napped during his hospital stay and participated minimally in the structured group programs offered on the unit. He stayed mostly to self. He was not behavioral management problem. Patient was restarted on his outpatient medications which he had been non compliant with for past month incluidng Abilify and Wellbutrin. He was given nicotine replacement therapy to help with craving. Patient denied hallucinations, delusons or parania during his hospital stay. he also \\ consistently denied suicidal and homicidal ideation during his hospital stay. after several days in hospital patient's mental status was deemed to be close to baseline. There was no indication that he was danger to self or others and he no longer met criteria for inaptient admission. Patient was discharged home. He agreed to follow up with outpatient treatment which had been set up by social work case manager. Medically, patient had normal physical examination on admission and was cleared for admission to psychiatry. Routine admission blood work including CBC, comprehensive metabolic panel, lipid profile, TSH, hemeglobin A1C and urinalysis were all within normal limits. Urine toxicology screen was positive for opiates and cocaine and negative for all other drugs of abuse tested. DAVON WALTER DO
== END 2017-08-12 13:37 | disposition home or self-care (01) | DRG 750 ==
LOC: ED 15:39 → BSU 08-09 14:25
PROVIDERS: ADMIT Psychiatry & Neurology Psychiatry; ATTEND Psychiatry & Neurology Psychiatry
DX: F25.0 Schizoaffective disorder, bipolar type (principal); R45.851 Suicidal ideations; F11.20 Opioid dependence, uncomplicated; F90.9 Attention-deficit hyperactivity disorder, unspecified type; F14.14 Cocaine abuse with cocaine-induced mood disorder; F11.90 Opioid use, unspecified, uncomplicated; F12.90 Cannabis use, unspecified, uncomplicated; Z87.891 Personal history of nicotine dependence; E03.9 Hypothyroidism, unspecified; D64.9 Anemia, unspecified; E78.00 Pure hypercholesterolemia, unspecified; I10 Essential (primary) hypertension; J44.9 Chronic obstructive pulmonary disease, unspecified; Z79.899 Other long term (current) drug therapy; Z88.0 Allergy status to penicillin; Z81.1 Family history of alcohol abuse and dependence; Z81.8 Family history of other mental and behavioral disorders; J40 Bronchitis, not specified as acute or chronic
CPT/HCPCS: 36415; 80053; 80061; 80307; 80320; 80329; 81003; 81015; 83036; 84436; 84439; 84443; 85025; 87086; 87502; 93005; 99284; A9270-GY; G0480

== ENCOUNTER 2018-03-02 12:28 | Emergency (ER) | payer OTHER ==
[2018-03-02] MEDS ORDERED: predniSONE TAB* 20 MG PO ONE (12:57)
[2018-03-02] MEDS ORDERED: Albuterol/Ipratropium NEB.SOL* Albuterol 2.5 MG/Ipratropium 0.5 MG 3 ML INH ONE (12:57)
--- NOTE | 2018-03-02 13:02 | ED ---
Shortness of Breath - HPI Summary HPI Summary: This patient is a 42 year old M presenting to [facility] with a chief complaint of shortness of breath since 2 days ago. The patient rates the pain 4/10 in severity. Symptoms aggravated by nothing. Symptoms alleviated by nothing. Patient reports cough. Patient quit smoking in August 2017. - History of Current Complaint Chief Complaint: EDShortnessOfBreath Hx Obtained From: Patient Onset/Duration: Gradual Onset, Lasting Days - 2 days, Still Present Timing: Constant Current Severity: Mild Dyspnea At: Rest Aggrevating Factors: Nothing Alleviating Factors: Nothing Associated Signs & Symptoms: Cough (Productive), Wheezing - Allergy/Home Medications Allergies/Adverse Reactions: Allergies Allergy/AdvReac Type Severity Reaction Status Date / Time Penicillins Allergy Hives Verified 03/02/18 12:31 PMH/Surg Hx/FS Hx/Imm Hx Endocrine/Hematology History: Reports: Hx Thyroid Disease - hypothroid, Hx Anemia Denies: Hx Anticoagulant Therapy, Hx Diabetes Cardiovascular History: Reports: Hx Hypercholesterolemia, Hx Hypertension Denies: Hx Congestive Heart Failure, Hx Pacemaker/ICD Respiratory History: Reports: Hx Asthma, Hx Chronic Obstructive Pulmonary Disease (COPD), Hx Pneumonia History: Denies: Hx Renal Disease Musculoskeletal History: Reports: Hx Orthopedic Injury - Left Hand Fracture, Other Musculoskeletal History - Clavicle Fracture Sensory History: Denies: Hx Contacts or Glasses, Hx Hearing Aid Opthamlomology History: Denies: Hx Contacts or Glasses Neurological History: Reports: Other Neuro Impairments/Disorders - Benign Tumor Removed two years ago per patient Denies: Hx Migraine - patient denies hx of migraines Psychiatric History: Reports: Hx Anxiety, Hx Attention Deficit Hyperactivity Disorder, Hx Depression, Hx Panic Disorder, Hx Post Traumatic Stress Disorder, Hx Inpatient Treatment, Hx Community Mental Health Tx, Hx Bipolar Disorder, Hx of Violent Episodes Against Others, Hx Substance Abuse, Other Psychiatric Issues /Disorders - BIPOLAR Denies: Hx Eating Disorder, Hx Suicide Attempt - Surgical History Surgery Procedure, Year, and Place: 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 Hx Anesthesia Reactions: Yes - age 8 ear tubes, surgery stopped for heart palpitation, unknown etiology, s Infectious Disease History: Yes Infectious Disease History: Reports: Hx of Known/Suspected MRSA - history Denies: Hx Clostridium Difficile, Hx Hepatitis, Hx Human Immunodeficiency Virus (HIV), Hx Shingles, Hx Tuberculosis, Hx Known/Suspected VRE, Hx Known/ Suspected VRSA, History Other Infectious Disease, Traveled Outside the [place] in Last 30 Days - Family History Known Family History: Positive: Other - pos: Family EToH, psychotic disorders - Social History Alcohol Use: states that he is a non-drinker Hx Substance Use: Yes Substance Use Type: Reports: Cocaine Substance Use Comment - Amount & Last Used: states he used cocaine once because he felt stressed Hx Tobacco Use: Yes Smoking Status (MU): Former Smoker Type: Cigarettes Amount Used/How Often: states that he does not smoke anymore, but had one cig. on Length of Time of Smoking/Using Tobacco: 9 years Have You Smoked in the Last Year: Yes - one cig. on - not his norm, does not smoke anymore Review of Systems Positive: Fever, Chills Negative: Photophobia, Blurred Vision Negative: Ear Ache Positive: Chest Pain - pleuritic chest pain Positive: Shortness Of Breath, Cough Negative: Vomiting, Nausea Negative: hematuria Negative: Edema Negative: Rash Negative: Headache All Other Systems Reviewed And Are Negative: No Physical Exam - Summary Physical Exam Summary: Appearance: Alert, conversive, nontoxic appearing Skin: Warm, dry, no mottling, no rashes, no contusions HEENT: EOMI, PERRL, moist mucous membranes Neck: No masses on the neck, supple Respiratory: Clear to auscultation, breath sounds present, no rales, no rhonchi , wheezing, prolonged expiration Cardiovascular: RRR, pulses are symmetrical in both lower and upper extremities Abdomen: Soft, non-tender Bowel Sounds: Present Musculoskeletal: No CVA tenderness, no obvious deformity, moving all extremities in a grossly normal manner Neurological: A&Ox3, CN II-XII Intact, moving all extremities symmetrically Psychiatric: Normal affect and mood Triage Information Reviewed: Yes Vital Signs On Initial Exam: Initial Vitals Temp Pulse Resp BP Pulse Ox 96.2 F 88 18 124/102 93 03/02/18 12:32 03/02/18 12:32 03/02/18 12:32 03/02/18 12:32 03/02/18 12:32 Vital Signs Reviewed: Yes Diagnostics - Vital Signs Vital Signs Temp Pulse Resp BP Pulse Ox 03/02/18 12:32 96.2 F 88 18 124/102 93 - Laboratory Lab Statement: Any lab studies that have been ordered have been reviewed, and results considered in the medical decision making process. - Radiology CXR Xray Interpretation: No Acute Changes - no active cardiopulmonary disease. Dr. Capone has reviewed this report. Radiology Interpretation Completed By: Radiologist Re-Evaluation - Re-Evaluation 1st re-eval Re-Evaluation Time: 14:10 Change: Improved Comment: Checked patient's lungs were clear. Patient notes chest pain, shortness of breath, sore throat, fever, and chills. Course/Dx - Course Course Of Treatment: This patient is a 42 year old M reporting shortness of breath and cough since 2 days ago. CXR reveals, per radiologist, no active cardiopulmonary disease. ED physician has reviewed this radiology report. In the ED course the patient was given albuterol nebulizer and prednisone. Patient will be discharged home with prescription for albuterol, z-pac, and prednisone and follow up from PCP. The patient is agreeable with this plan. - Diagnoses Provider Diagnoses: URI (upper respiratory infection) Discharge - Sign-Out/Discharge Documenting (check all that apply): Patient Departure - discharge home - Discharge Plan Condition: Stable Disposition: HOME Prescriptions: Albuterol HFA INHALER* [Ventolin HFA Inhaler*] 2 puff INH Q6H PRN #1 mdi MDD 68 PRN Reason: Wheezing Azithromyxin ZEKE (NF) [Z-Zeke (Zithromax) 250 mg tabs #6] 2 tab PO .TODAY, THEN 1 DAILY #6 tab predniSONE TAB* [Deltasone 20 MG TAB*] 60 mg PO DAILY #12 tab MDD 3 Patient Education Materials: Acute Bronchitis (ED) Referrals: Darin Montano MD [Primary Care Provider] - Additional Instructions: use the inhaler and spacer as instructed. return if worse or any new symptoms. it is important to follow up with your primary care physician this week. - Billing Disposition and Condition Condition: STABLE Disposition: Home - Attestation Statements Document Initiated by Scribe: Yes Documenting Scribe: Ame Mesa Provider For Whom Scribe is Documenting (Include Credential): Brielle Capone MD Scribe Attestation: Ame Okeefe, scribed for Brielle Capone MD on 03/02/18 at 1720. Scribe Documentation Reviewed: Yes Provider Attestation: The documentation as recorded by the scribe, Ame Mesa accurately reflects the service I personally performed and the decisions made by me, Brielle Capone MD
--- NOTE | 2018-03-02 13:25 | RAD ---
HISTORY: cough COMPARISONS: February 14, 2015 VIEWS: 1: frontal AP view of the chest at 1:19 PM FINDINGS: LINES AND TUBES: None. CARDIOMEDIASTINAL SILHOUETTE: The cardiomediastinal silhouette is normal for portable technique. PLEURA: The costophrenic angles are sharp. No pleural abnormalities are noted. LUNG PARENCHYMA: The lungs are clear. ABDOMEN: The upper abdomen is clear. There is no subphrenic gas. BONES AND SOFT TISSUES: No bone or soft tissue abnormalities are noted. IMPRESSION: NO ACTIVE CARDIOPULMONARY DISEASE.
[2018-03-02 14:47] VITALS: BP 130/88
== END 2018-03-02 14:46 | disposition home or self-care (01) ==
LOC: ED 12:28
DX: J06.9 Acute upper respiratory infection, unspecified (principal); Z88.0 Allergy status to penicillin; Z87.891 Personal history of nicotine dependence
CPT/HCPCS: 71045; 99283; A9270-GY; J7512

== ENCOUNTER 2019-02-17 15:22 | Emergency (ER) | payer OTHER ==
--- NOTE | 2019-02-17 17:32 | ED ---
Skin Complaint - HPI Summary HPI Summary: The patient is a 43 y/o M presenting to [facility] with a chief complaint of gradual onset erythematous rash on the right dorsal hand onset 5-6 days ago. He reports that it may be a spider bite because he has found spiders in his house, but the rash has been getting larger. He denies any fevers or chills. Currently, he rates his symptoms 0/10 in severity as there is no pain. Not allergic to any antibiotics but states Im supposed to stay away from penicillins. PMHx: thyroid disease, anemia, angina, HLD, HTN, asthma, COPD, PNA, anxiety, ADHD, depression, panic disorder, PTSD, bipolar disorder, MRSA, hepatitis C. Former smoker, no EtOH, no substance use. Medications reviewed. Allergies noted. - History of Current Complaint Chief Complaint: EDRashSkinAbscess Time Seen by Provider: 02/17/19 17:23 Stated Complaint: POSS BUG BITE RT HAND PER PT Hx Obtained From: Patient Onset/Duration: Started Days Ago - 5-6, Still Present Skin Exposure Onset/Duration: Days Ago - 5-6 Timing: Lasting Days Onset Severity: Mild Current Severity: Moderate Pain Intensity: 0 Pain Scale Used: 0-10 Numeric Skin Location: Hand - right dorsal Character: Redness Aggravating Symptom(s): Nothing Alleviating Symptom(s): Nothing Associated Signs & Symptoms: Rash Related History: Possible Reaction to: Insect - spider - Additional Pertinent History Primary Care Physician: [id number] - Allergy/Home Medications Allergies/Adverse Reactions: Allergies Allergy/AdvReac Type Severity Reaction Status Date / Time Penicillins Allergy Hives Verified 03/02/18 12:31 Home Medications: Home Medications FLUoxetine CAP* [Prozac CAP*] 40 mg PO DAILY 02/17/19 [History Confirmed ] PMH/Surg Hx/FS Hx/Imm Hx Endocrine/Hematology History: Reports: Hx Thyroid Disease - hypothroid, Hx Anemia Denies: Hx Anticoagulant Therapy, Hx Diabetes Cardiovascular History: Reports: Hx Angina, Hx Hypercholesterolemia, Hx Hypertension, Hx Valvular Heart Disease - "They said I had a murmur or something " Denies: Hx Congestive Heart Failure, Hx Coronary Artery Disease, Hx Pacemaker/ICD Respiratory History: Reports: Hx Asthma, Hx Chronic Obstructive Pulmonary Disease (COPD), Hx Pneumonia History: Denies: Hx Renal Disease Musculoskeletal History: Reports: Hx Orthopedic Injury - Left Hand Fracture, Other Musculoskeletal History - Clavicle Fracture Sensory History: Denies: Hx Contacts or Glasses, Hx Hearing Aid Opthamlomology History: Denies: Hx Contacts or Glasses Neurological History: Reports: Other Neuro Impairments/Disorders - Benign Tumor Removed two years ago per patient Denies: Hx Migraine - patient denies hx of migraines Psychiatric History: Reports: Hx Anxiety, Hx Attention Deficit Hyperactivity Disorder, Hx Depression, Hx Panic Disorder, Hx Post Traumatic Stress Disorder, Hx Inpatient Treatment, Hx Community Mental Health Tx, Hx Bipolar Disorder, Hx of Violent Episodes Against Others, Hx Substance Abuse, Other Psychiatric Issues /Disorders - BIPOLAR Denies: Hx Eating Disorder, Hx Suicide Attempt - Surgical History Surgical History: Yes Surgery Procedure, Year, and Place: 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 Hx Anesthesia Reactions: Yes - age 8 ear tubes, surgery stopped for heart palpitation, unknown etiology, s - Immunization History Date of Tetanus Vaccine: unknown Immunizations Up to Date: Yes Infectious Disease History: Yes Infectious Disease History: Reports: Hx Hepatitis - Hep C, Hx of Known/ Suspected MRSA - history of Denies: Hx Clostridium Difficile, Hx Human Immunodeficiency Virus (HIV), Hx Shingles, Hx Tuberculosis, Hx Known/Suspected VRE, Hx Known/Suspected VRSA, History Other Infectious Disease, Traveled Outside the [place] in Last 30 Days - Family History Known Family History: Positive: Other - pos: Family EToH, psychotic disorders - Social History Alcohol Use: None Hx Substance Use: Yes Substance Use Type: Reports: None Substance Use Comment - Amount & Last Used: states he used cocaine once because he felt stressed Hx Tobacco Use: Yes Smoking Status (MU): Former Smoker Type: Cigarettes Amount Used/How Often: states that he does not smoke anymore, but had one cig. on Length of Time of Smoking/Using Tobacco: 9 years Have You Smoked in the Last Year: Yes - one cig. on - not his norm, does not smoke anymore Review of Systems Negative: Fever, Chills Positive: Rash - erythema on the right dorsal hand All Other Systems Reviewed And Are Negative: Yes Physical Exam - Summary Physical Exam Summary: VITAL SIGNS: Reviewed. GENERAL: Patient is a well-developed and obese male who is lying comfortable in the stretcher. Patient is not in any acute respiratory distress. HEAD AND FACE: No signs of trauma. No ecchymosis, hematomas or skull depressions. No sinus tenderness. EYES: PERRLA, EOMI x 2, No injected conjunctiva, no nystagmus. EARS: Hearing grossly intact. Ear canals and tympanic membranes are within normal limits. MOUTH: Oropharynx within normal limits. NECK: Supple, trachea is midline, no adenopathy, no JVD, no carotid bruit, no c- spine tenderness, neck with full ROM. CHEST: Symmetric, no tenderness at palpation. LUNGS: Clear to auscultation bilaterally. No wheezing or crackles. CVS: Regular rate and rhythm, S1 and S2 present, no murmurs or gallops appreciated. ABDOMEN: Soft, non-tender. No signs of distention. No rebound, no guarding, and no masses palpated. Bowel sounds are normal. EXTREMITIES: FROM in all major joints, no edema, no cyanosis or clubbing. NEURO: Alert and oriented x 3. No acute neurological deficits. Speech is normal and follows commands. SKIN: Erythema and swelling on the dorsal aspect of the right hand. Dry and warm. Triage Information Reviewed: Yes Vital Signs On Initial Exam: Initial Vitals Temp Pulse Resp BP Pulse Ox 98.3 F 96 18 144/108 95 02/17/19 15:30 02/17/19 15:30 02/17/19 15:30 02/17/19 15:30 02/17/19 15:30 Vital Signs Reviewed: Yes Procedures - Procedure Summary Procedure Summary: I&D note Procedure - Incision and Drainage Patient positioned appropriately, 2 cc lidocaine with/without epinephrine was used as a local anesthetic. #11 blade scalpel used for single incision. Additional local anesthetic injected into surrounding viable tissue prior to blunt dissection of loculated adhesions. Copious drainage of pus was expressed ( culture obtained). Wound packed with iodoform gauze. Procedure tolerated without complications. Wound dressed with sterile 4x4 gauze and paper tape. - Sedation Patient Received Moderate/Deep Sedation with Procedure: No Diagnostics - Vital Signs Vital Signs Temp Pulse Resp BP Pulse Ox 02/17/19 15:30 98.3 F 96 18 144/108 95 - Laboratory Lab Statement: Any lab studies that have been ordered have been reviewed, and results considered in the medical decision making process. Re-Evaluation - Re-Evaluation First Eval Re-Evaluation Time: 17:50 Change: Unchanged Comment: I performed the I&D (see procedure note). We discussed plan for discharge. Course/Dx - Course Assessment/Plan: Patient is a 43 y/o M with chief complaint of gradual onset erythematous rash on the right dorsal hand onset 5-6 days ago without fevers or chills. The patient appears to have an abscess on the dorsal aspect of the right hand. I performed an I&D on the abscess. Purulent discharge was obtained. I applied a bandage and sent cultures. Patient was given Bactrim for the abscess. Patient will be discharged home with follow-up with primary care physician. I discussed all the findings and test results with the patient. Patient was instructed to return to the emergency room immediately if any of the symptoms return worsens. Plan of care was discussed with the patient and understands and agrees. All questions were answered at patient satisfaction. There were no further complaints or concerns. Lung exam before discharge: CTA B/ L. Good air exchange. No wheezing or crackles heard. CVS: S1 and S2 present. No murmurs appreciated. Patient is alert and oriented x 3. Patient is hemodynamically stable. Patient will be discharged home with follow up PCP in the next 2-3 days. - Diagnoses Provider Diagnoses: Abscess, Cellulitis Discharge ED - Sign-Out/Discharge Documenting (check all that apply): Patient Departure - Patient will be discharged home. - Discharge Plan Condition: Good Disposition: HOME Prescriptions: Sulfamethox/Trimethoprim DS* [Bactrim DS 800/160 TAB*] 1 tab PO BID #14 tab Patient Education Materials: Cellulitis (DC), Abscess (ED) Referrals: Darin Montano MD [Primary Care Provider] - 3 Days Additional Instructions: Please take medications as prescribed. Follow up with your primary care provider in 2-3 days. Return to the emergency department for any new or worsening symptoms. - Billing Disposition and Condition Condition: GOOD Disposition: Home - Attestation Statements Document Initiated by Scribe: Yes Documenting Scribe: Amalia Gregorio Provider For Whom Gretta is Documenting (Include Credential): Dr. Tristan Campo MD Scribe Attestation: Amalia Okeefe, scribed for Dr. Tristan Campo MD on 02/17/19 at 1854. Scribe Documentation Reviewed: Yes Provider Attestation: The documentation as recorded by the scribe, Amalia Gregorio accurately reflects the service I personally performed and the decisions made by me, Dr. Tristan Campo MD Status of Gretta Document: Ready
[2019-02-17] MEDS: Sulfamethox/Trimethoprim DS 800/160* TAB PO ONE (18:08)
[2019-02-17 18:11] VITALS: BP 145/98
== END 2019-02-17 18:11 | disposition home or self-care (01) ==
LOC: ED 15:22
DX: L02.511 Cutaneous abscess of right hand (principal); L03.113 Cellulitis of right upper limb; E03.9 Hypothyroidism, unspecified; D64.9 Anemia, unspecified; E78.00 Pure hypercholesterolemia, unspecified; I10 Essential (primary) hypertension; J44.9 Chronic obstructive pulmonary disease, unspecified; F31.9 Bipolar disorder, unspecified; F41.9 Anxiety disorder, unspecified; F90.9 Attention-deficit hyperactivity disorder, unspecified type; F43.10 Post-traumatic stress disorder, unspecified; Z87.891 Personal history of nicotine dependence; Z79.899 Other long term (current) drug therapy; Z88.0 Allergy status to penicillin
CPT/HCPCS: 10060; 87070; 87077; 87186; 87205; 87640; 87641; 99282; A9270-GY